=== PATIENT | male | born 1945 | race Caucasian/White ===

== ENCOUNTER 2018-12-22 12:00 | Inpatient (IN) | payer MEDICARE, OTHER ==
[~2018-12-22] VITALS: Ht 180.3 cm; Wt 131.8 kg
--- NOTE | 2018-12-23 14:29 | HPEPDOC ---
Color Weigher Note DATE OF ADMISSION: Dec 23, 2018 at 13:33 SOURCE OF ADMISSION INFORMATION: [facility] records and patient CHIEF COMPLAINT: right first digit amputation in setting of peripheral neuropathy HISTORY OF PRESENT ILLNESS: 73M pmh Afib on Coumadin, CAD s/p HI and stenting , CHF, CKD3, DM2, peripheral neuropathy, HTN, gout, anemia who presented to [facility] on 11/22/18 with right leg pain and found to have gangrene of his right great toe that he said began in September 2018.He was evaluated by vascular surgery and underwent a left femoral puncture under ultrasound guidance, aortogram with right leg runoff on 11/22/18. Following this procedure it was decided he needed a right femoral endarterectomy, right femoral popliteal bypass with a right first toe amputation which was performed 12/02/18 without initial complication. He was followed during his stay by renal for worsening creatinine levels, but dialysis was not deemed necessary. He developed purulence and drainage from his amputation site so his sutures were removed and wound cultures, followed by washout and debridement on 12/13/18 with removal of a portion of the 1st and 2nd metatarsal bones. . He was started on IV Vanco and Zosyn, but due to worsening renal function eventually was switched to Linezolid per ID recs for a MRSA wound culture and managed with a wound VAC. His bone culture was positive for osteomyelitis and positive for MRSA and enterococcus, so he was switched to IV Daptomycin for a total of 6 weeks through January 24, 2019. He also as noted to have intermittent bradycardia while on CoReg without significant symptoms and his Torsemide was ultimately decreased due to worsening creatinine function and he was evaluated by therapy, found to have deficits in gait and ADL below his prior level of function and deemed medically appropriate for discharge to ARU on 12/23/18. REVIEW OF SYSTEMS: The following is a completed review of systems and has been reviewed. Review of systems otherwise unremarkable. PAIN: Patient self reports no pain EYES: no recent vision changes EARS, NOSE, & THROAT: denies dysphagia, rhinorrhea CARDIOVASCULAR: denies chest pain or palpitations PULMONARY: Negative. +orthopnea GASTROINTESTINAL:denies diarrhea/constipation GENITOURINARY: denies incontinence or dysuria MUSCULOSKELETAL: bilat LE weakness, right hip fracture NEUROLOGICAL: peripheral neuropathy HEMATOLOGICAL: +anemia SKIN: right foot ulcer and venous stasis changes in bilat calves PSYCHIATRIC: +depressed All other review of systems found to be negative. PAST MEDICAL HISTORY: as per HPI PAST SURGICAL HISTORY: Cataract extraction, cholecystectomy, right hip fracture ALLERGIES: Please see below. MEDICATIONS: Please see below. FAMILY HISTORY: Cancer, cardiac, and heart disease SOCIAL HISTORY: , former smoker, no ETOH, no illicit drugs DIET: 2gm sodium PHYSICAL EXAMINATION: VITAL SIGNS: Please see below. GENERAL: Pleasant and cooperative. No acute distress. HEENT: PERRL. Extraocular movements intact. Clear conjunctiva CARDIOVASCULAR: Irregular rate and rhythm. No murmurs, rubs, or gallops LUNGS: Clear to auscultation bilaterally. No wheezes. No rhonchi ABDOMEN: Soft, nontender, nondistended. Positive bowel sounds. Normal active bowel sounds NEUROLOGICAL: Alert and oriented times three. Cranial nerves II through XII grossly intact. Sensation absent in bilat feet and ankles in stock pattern EXTREMITIES: 5\5 strength bilateral upper extremities. 4\5 strength right hip flexion and knee extension 2/5 right ankle DF 4/5 strength in left lower extremity. SKIN: right medial foot wound with granulation tissue, macerated, not malodorous right medial calf incision with sutures c/d/i bilateral psoriatic patches scattered over LE IMAGING: Imaging documentation personally reviewed by record FUNCTIONAL STATUS: Premorbid: Independent with all activities of daily life as well as mobility On Admission: Mod assist for toileting, bathing, lower body dressing, Mod-Max assist for ambulation and stairs GOALS: Mod-I from a wheelchair level, Mod-I household distances with a RW for ambulation, Mod-I bathing, toileting, dressing, grooming, medical optimization, family training, home eval assess for DMEs. ASSESSMENT:73-year-old M with past medical history of DM, CKD CAD, peripheral neuropathy who presents status post right toe amputation with wound vac. PLAN: 1. Rehab: PT, OT. assess for DMEs -goal to strengthen core, LLE for optimal ambulation short distances 30-50 feet max with forefoot off-kiln loader (PWB for RLE) -strengthen upper extremities 2. Nueo: peripheral neuropathy- c/u glycemic control 3. ID: MRSA and enterococcus osteomyelitis, c/u Daptomycin IV for total of 6 weeks- will consuder ID consult -c/u wound vac change MWF 4. CArdio: pmh HTn and CHF- c/u BP meds and iuretics, medicine consulted to assist -Afib on eliquis 5. Endo: pmh DM- c/u insulin and adjust prn 6. Vascular: pmh PVD s/p multiple interventions- has f/u with vascular surgeon 01/16/19 for suture removal 7. Pain:c/u gabapentin 8. Psych: will start remeron for depression and insomnia 9. Skin: daily dressing changes to bilat calves, wound vac MWF 10. GI ppx: protonix 11. DVT ppx: on eliquis 12. Renal: recent MARLEN, will monitor, needs f/u with nephrology on discharge 12. Dispo TBD POST ADMISSION PHYSICIAN EVALUATION: Medical and functional status: Description of medical status, medical assessment: As above. Rehabilitation diagnosis and current and prior cold morbid medical conditions as above. Risk of complications and plans to mitigate them as above. Description of functional status current status is as above. Prior status as above. Status compared to preadmission: There are no clinically significant differences between the patient's current status and the information described on the preadmission screening document. Treatment plan anticipated: Treatment plan is as described above. Required disciplines including physical therapy, occupational therapy, others as noted above. Intensity of services: 3 hours a day, 6 days a week. Special considerations: There are no specific special or safety considerations that would likely preclude immediate implementation of an intensive rehabilitation program or subsequently influence the plan of care ATTESTATION: Considering all the information above, it is my best judgment that this patient requires intensive rehabilitation therapy as described above and an inpatient hospital environment due to the complexity of nursing, medical, and rehabilitation needs required by the patient. Furthermore, this patient can reasonably be expected to participate in an benefit from an inpatient rehabilitation stay with an interdisciplinary team approach to the delivery of rehabilitation care under the direction and supervision of rehabilitation physician PROGNOSIS: Excellent ESTIMATED LENGTH OF STAY:18-20 days. PROJECTED DISCHARGE DESTINATION: Home with family support and any durable medical equipment required to increase functional safety and mobility TIME SPENT COUNSELING AND COORDINATING INITIAL CARE: Greater than 70 minutes. Vital Signs Vital Signs Date Time Temp Pulse Resp B/P (MAP) Pulse Ox O2 Delivery O2 Flow Rate FiO2 12/23/18 16:30 98.9 56 18 192/80 (117) 99 Home Medications Scheduled Allopurinol (Allopurinol) 100 Mg Tablet, 100 MG PO DAILY, (Reported) Apixaban (Eliquis) 5 Mg Tablet, 5 MG PO BID, (Reported) Carvedilol (Carvedilol) 25 Mg Tablet, 25 MG PO BID, (Reported) Cholecalciferol (Vitamin D3) (Vitamin D3) 1,000 Unit Tablet, 1,000 UNIT PO DAILY, (Reported) Clopidogrel Bisulfate (Clopidogrel) 75 Mg Tablet, 75 MG PO DAILY, (Reported) Docusate Sodium (Docusate Sodium) 100 Mg Capsule, 100 MG PO BID, (Reported) Gabapentin (Gabapentin) 100 Mg Capsule, 300 MG PO QHS, (Reported) Hydralazine HCl (Hydralazine HCl) 25 Mg Tablet, 25 MG PO BID, (Reported) (SBP>170) Insulin Aspart (Novolog) 100 Unit/1 Ml Cartridge, 0 SC ACHS, (Reported) Insulin Glargine,Hum.rec.anlog (Lantus Solostar) 100 Unit/1 Ml Insuln.pen, 16 UNITS SC DAILY, (Reported) L.acidoph/L.bulg/B.bif/S.therm (Bacid Caplet) 1 Each Tablet, 1 TAB PO DAILY, (Reported) Multivitamin (Multivitamins) 1 Each Tablet, 1 TAB PO DAILY, (Reported) Potassium Chloride (Potassium Chloride) 10 Meq Tablet.er, 20 MEQ PO TID, (Reported) VERIFIED DOSE WITH [facility] Tamsulosin HCl (Flomax) 0.4 Mg Capsule, 0.4 MG PO QHS, (Reported) Torsemide (Torsemide) 20 Mg Tablet, 20 MG PO BID, (Reported) Scheduled PRN Acetaminophen (Tylenol) 325 Mg Tablet, 650 MG PO Q4H PRN for PAIN, (Reported) Albuterol Sulfate (Proair Hfa) 8.5 Gm Hfa.aer.ad, 2 PUFF INH Q4H PRN for SHORTNESS OF BREATH, (Reported) Calcium Carbonate (Calcium) 500 Mg Tablet, 500 MG PO TID PRN for HEARTBURN, (Reported) Polyethylene Glycol 3350 (Miralax) 119 Gm Powder, 17 GM PO DAILY PRN for CONSTIPATION, (Reported) Allergies Coded Allergies: amlodipine (Verified Allergy, Unknown, 12/23/18) atorvastatin (Verified Allergy, Unknown, HIVES, 12/23/18) rosuvastatin (Verified Allergy, Unknown, HIVES, 12/23/18) simvastatin (Verified Allergy, Unknown, HIVES, 12/23/18) spironolactone (Verified Allergy, Unknown, SWELLING, 12/23/18) A-FIB/CHADSVASC A-FIB History Current/History of A-Fib/PAF?: Yes Current PO Anticoag Therapy: Yes ROSSANA SAENZ MD Dec 23, 2018 14:29
[2018-12-23] MEDS ORDERED: MOM 30ML SUSPENSION UDC PO PRN (14:30)
[2018-12-23] MEDS ORDERED: GLUCAGON FOR INJ 1 MG VIAL (J1610) SC PRN (14:30)
[2018-12-23] MEDS ORDERED: DEXTROSE 50% 50 ML SYRINGE IV PRN (14:30)
[2018-12-23] MEDS ORDERED: CALCIUM CARBONATE 500 MG CHEW U/D PO PRN (14:30)
[2018-12-23] MEDS ORDERED: BISACODYL 5 MG TAB PO PRN (14:30)
[2018-12-23] MEDS ORDERED: GLUCOSE 4 GM CHEW TABLET PO PRN (14:30)
[2018-12-23] MEDS ORDERED: ALBUTEROL 90 MCG/ACT 8GM HFA INHALER INH PRN (14:30)
[2018-12-23] MEDS ORDERED: MAALOX 30 ML SUSP *UDC PO PRN (14:30)
[2018-12-23] MEDS ORDERED: OYST1TAB PO (15:46)
[2018-12-23] MEDS ORDERED: ELIQ5TAB PO (15:46)
[2018-12-23] MEDS ORDERED: DOCU100C17 PO (15:46)
[2018-12-23] MEDS ORDERED: GABA-1171 PO (15:46)
[2018-12-23] MEDS ORDERED: MIRA3350 PO (15:46)
[2018-12-23] MEDS ORDERED: NOVOINJ SC (15:46)
[2018-12-23] MEDS ORDERED: CARV25TA PO (15:46)
[2018-12-23] MEDS ORDERED: FLOM0.4C39 PO (15:46)
[2018-12-23] MEDS ORDERED: CLOP75TA2 PO (15:46)
[2018-12-23] MEDS ORDERED: TORS20TA2 PO (15:46)
[2018-12-23] MEDS ORDERED: BACITAB PO (15:46)
[2018-12-23] MEDS ORDERED: LANTINJ4 SC (15:46)
[2018-12-23] MEDS ORDERED: HYDR25TA PO (15:46)
[2018-12-23] MEDS ORDERED: ALLO10TA PO (15:46)
[2018-12-23] MEDS ORDERED: MULT-40 PO (15:46)
[2018-12-23] MEDS ORDERED: ACET-907 PO (15:46)
[2018-12-23] MEDS ORDERED: VITA-144 PO (15:52)
[2018-12-23] MEDS ORDERED: PROAAER10 INH (15:52)
[2018-12-23] MEDS ORDERED: POTA10TA14 PO (15:52)
[2018-12-23 16:30] VITALS: BP 192/80
[2018-12-23] MEDS: HumaLOG INSULIN (NovoLOG) PER UNIT SC SCH ×2 (17:58→21:00)
[2018-12-23] MEDS: TORSEMIDE 20 MG TAB PO SCH (17:59)
[2018-12-23] MEDS: ACETAMINOPHEN 500 MG TAB PO SCH ×2 (17:59→20:48)
[2018-12-23] MEDS: CARVedilol 12.5 MG TAB PO SCH (18:00)
[2018-12-23] MEDS ORDERED: **hydrALAZINE** 50 MG TAB PO SCH (18:15)
--- NOTE | 2018-12-23 18:26 | CR.PDOC ---
General Date of Consultation: Dec 23, 2018 Consultation REASON FOR CONSULTATION/CHIEF COMPLAINT: routine medical consult HISTORY OF PRESENT ILLNESS: Pt is 73 y/o M who was discharged from [facility] in [place] to [facility] today. Pt was seen upon arrival to the unit. Pt was in [facility] 30 days with complicated hospital stay due to MRSA infection of Rt foot wound. He underwent debridement of gangrenous foot ulcer and eventually was dc on wound vac and Daptomycin to complete for 6 weeks until January 24. He initially received Vancomycin subsequently developed MARLEN switched to Linezolid. Upon my encounter pt is AAOx3. Denies any acute distress. Pt and just arrived from [place]. Initial SBP at 200s. As per documentations pt is on Coreg 25 BID, Losartan 50 daily and Hydralazine 50 BID. Pt reports that has not received his BP meds since AM. Denies any CP or dyspnea. Denies any pain at the site of his wound. It was communicated with RN to administer pt BP regimen. Pt denies any dizziness, lightheadedness or palpitations. Denies any change in vision. ALLERGIES: Please see below. HOME MEDICATIONS: Please see below. PAST MEDICAL HISTORY: 1. Rt foot wet gangrene s/p debridement 2. PAD s/p angioplasty and bypass 3. CAD s/p CABG 4. Afib on Eliquis 5. CHF 6. CKD stage 3 7. T2DM 8. HTN PAST SURGICAL HISTORY: 1. CABG 2. Cataract 3. Cholecystectomy FAMILY HISTORY: Father: cardiac disease, HTN Mother: Kidney disease Siblings: HTN SOCIAL HISTORY: Pt and live one hour from [facility] 25 years ago, No ETOH , No drugs REVIEW OF SYSTEMS: 10 points negative except in HPI PHYSICAL EXAMINATION: VITAL SIGNS: Please see below. GENERAL APPEARANCE: AAOx3 no acute distress HEENT: DEISY EOMI no icterus atraumatic no JVD no thyromegaly RESPIRATORY: good air entry bilat , clear to auscultation, no wheezing, no rales CARDIOVASCULAR: S1 S2 no murmurs ABDOMEN: soft NT ND EXTREMITIES: no edema no cyanosis no calf tenderness, wound vac in place NEUROLOGICAL: motor and sensory intact PSYCHIATRIC: mood and affect appropriate LABORATORY DATA: Please see below. Vital Signs Date Time Temp Pulse Resp B/P (MAP) Pulse Ox O2 Delivery O2 Flow Rate FiO2 12/23/18 18:00 59 206/86 Laboratory Tests 12/23/18 17:14: Bedside Glucose (Misc Panel) 125H Current Medications Medications (Trade) Dose Ordered Sig/Vani Route PRN Reason Start Time Stop Time Status Last Admin Dose Admin Acetaminophen (Tylenol Tab) 1,000 mg TID PO 12/23/18 16:00 12/23/18 17:59 1,000 MG Carvedilol (COReg) 25 mg BID PO 12/23/18 18:00 12/23/18 18:00 25 MG Insulin Human Lispro (HumaLOG INSULIN) SEE PROTOCOL TABLE AC SC 12/23/18 17:30 12/23/18 17:58 2 UNITS Torsemide (Demadex) 20 mg BID@, PO 12/23/18 17:00 12/23/18 17:59 20 MG ASSESSMENT/PLAN: 1- Hypertensive Urgency Pt has Hx of HTN managed on three medications, was en route to be transferred to [facility] and did not receive his meds Cont Home regimen Coreg 25 BID Cozar 50 daily Hydralazine 25 BID Will administer home dose and monitor closely 2-Osteomyelitis of Rt toe s/p debridement Cont Daptomycin for total of 6 weeks until January 24 Weekly CK levels Wound vac in place follow instructions for wound care from discharge summary 3-CAD s/p CABG Currently stable denies any angina/palpitations Cont Coreg ASA Statin 4-Atrial fibrillation Rate controlled Cont Anticoagulation Eliquis 5-CKD stage 3 Currently euvolemic clinically monitor for signs of volume overload no intervention at this point DVT prophylaxis On Eliquis Thank you for the consult. Vital Signs/I&O Vital Signs Date Time Temp Pulse Resp B/P (MAP) Pulse Ox O2 Delivery O2 Flow Rate FiO2 12/23/18 18:00 59 206/86 Laboratory Data Labs 24H Laboratory Tests 2 12/23/18 17:14: Bedside Glucose (Misc Panel) 125H Allergies Coded Allergies: amlodipine (Verified Allergy, Unknown, 12/23/18) atorvastatin (Verified Allergy, Unknown, HIVES, 12/23/18) rosuvastatin (Verified Allergy, Unknown, HIVES, 12/23/18) simvastatin (Verified Allergy, Unknown, HIVES, 12/23/18) spironolactone (Verified Allergy, Unknown, SWELLING, 12/23/18) Home Medications Scheduled Allopurinol (Allopurinol) 100 Mg Tablet, 100 MG PO DAILY, (Reported) Apixaban (Eliquis) 5 Mg Tablet, 5 MG PO BID, (Reported) Carvedilol (Carvedilol) 25 Mg Tablet, 25 MG PO BID, (Reported) Cholecalciferol (Vitamin D3) (Vitamin D3) 1,000 Unit Tablet, 1,000 UNIT PO DAILY, (Reported) Clopidogrel Bisulfate (Clopidogrel) 75 Mg Tablet, 75 MG PO DAILY, (Reported) Docusate Sodium (Docusate Sodium) 100 Mg Capsule, 100 MG PO BID, (Reported) Gabapentin (Gabapentin) 100 Mg Capsule, 300 MG PO QHS, (Reported) Hydralazine HCl (Hydralazine HCl) 25 Mg Tablet, 25 MG PO BID, (Reported) (SBP>170) Insulin Aspart (Novolog) 100 Unit/1 Ml Cartridge, 0 SC ACHS, (Reported) Insulin Glargine,Hum.rec.anlog (Lantus Solostar) 100 Unit/1 Ml Insuln.pen, 16 UNITS SC DAILY, (Reported) L.acidoph/L.bulg/B.bif/S.therm (Bacid Caplet) 1 Each Tablet, 1 TAB PO DAILY, (Reported) Multivitamin (Multivitamins) 1 Each Tablet, 1 TAB PO DAILY, (Reported) Potassium Chloride (Potassium Chloride) 10 Meq Tablet.er, 20 MEQ PO TID, (Reported) VERIFIED DOSE WITH [facility] Tamsulosin HCl (Flomax) 0.4 Mg Capsule, 0.4 MG PO QHS, (Reported) Torsemide (Torsemide) 20 Mg Tablet, 20 MG PO BID, (Reported) Scheduled PRN Acetaminophen (Tylenol) 325 Mg Tablet, 650 MG PO Q4H PRN for PAIN, (Reported) Albuterol Sulfate (Proair Hfa) 8.5 Gm Hfa.aer.ad, 2 PUFF INH Q4H PRN for SHORTNESS OF BREATH, (Reported) Calcium Carbonate (Calcium) 500 Mg Tablet, 500 MG PO TID PRN for HEARTBURN, (Reported) Polyethylene Glycol 3350 (Miralax) 119 Gm Powder, 17 GM PO DAILY PRN for CONSTIPATION, (Reported) JOEY NORIEGA MD Dec 23, 2018 18:26
[2018-12-23] MEDS ORDERED: NS IV SCH (18:30)
[2018-12-23] MEDS ORDERED: DAPTOMYCIN IV SCH (18:30)
[2018-12-23] MEDS: **hydrALAZINE HCL** 25 MG TAB PO SCH (18:53)
[2018-12-23 20:00] VITALS: BP 170/80
[2018-12-23] MEDS: GABAPENTIN 300 MG CAP PO SCH (20:44)
[2018-12-23] MEDS: APIXABAN 5 MG TAB (ELIQUIS) PO SCH (20:44)
[2018-12-23] MEDS: DOCUSATE SODIUM 100 MG CAP PO SCH (20:44)
[2018-12-23] MEDS: LACTOBACILLUS ACIDOPHILUS CAP (BACID) PO SCH (20:45)
[2018-12-23] MEDS: TAMSULOSIN 0.4 MG CAP PO SCH (20:46)
[2018-12-23] MEDS: MIRTAZAPINE 15 MG TAB PO SCH (20:46)
[2018-12-23] MEDS: SENNA 8.6 MG TAB (SENOKOT) PO SCH (20:48)
[2018-12-23] MEDS ORDERED: LOSARTAN 50 MG TAB PO ONE (21:00)
[2018-12-24] MEDS: SODIUM CHLORIDE 0.9% INJ 10 ML SYR IV SCH ×3 (05:18→22:34)
[2018-12-24 05:36] VITALS: BP 160/75
[2018-12-24 07:02] LABS: BASO # 0.1 10^3/uL (0.0-0.2); EOS # 0.3 10^3/uL (0.0-0.50); EOS % 4.2 % (0.0-3.0); HEMATOCRIT 33.4 % (42.0-52.0); HEMOGLOBIN 9.6 g/dl (13.5-17.5); LYMPH # 1.3 10^3/uL (1.5-4.5); LYMPH % 16.1 % (24.0-44.0); MEAN CORPUSCULAR HEMOGLOBIN 29.4 pg (27.0-33.0); MEAN CORPUSCULAR HGB CONC 28.7 g/dl (32.0-36.5); MEAN CORPUSCULAR VOLUME 102.1 fl (80.0-96.0); MONO # 0.8 10^3/uL (0.0-0.8); MONO % 9.7 % (0.0-5.0); NEUTROPHILS # 5.5 10^3/uL (1.8-7.7); NEUTROPHILS % 67.6 % (36.0-66.0); PLATELET COUNT, AUTOMATED 188 10^3/uL (150-450); RED BLOOD COUNT 3.27 10^6/uL (4.30-6.10); WHITE BLOOD COUNT 8.1 10^3/uL (4.0-10.0)
[2018-12-24 07:27] LABS: ALBUMIN 2.5 GM/DL (3.2-5.2); BILIRUBIN,TOTAL 0.6 MG/DL (0.2-1.0); CALCIUM LEVEL 8.7 MG/DL (8.8-10.2); CREATININE FOR GFR 1.84 MG/DL (0.70-1.30); GLOMERULAR FILTRATION RATE 38.7 (>42); POTASSIUM SERUM 3.9 MEQ/L (3.5-5.1); TOTAL PROTEIN 6.5 GM/DL (6.4-8.2)
[2018-12-24] MEDS: HumaLOG INSULIN (NovoLOG) PER UNIT SC SCH ×4 (07:30→21:00)
[2018-12-24] MEDS: DOCUSATE SODIUM 100 MG CAP PO SCH ×2 (08:55→22:32)
[2018-12-24] MEDS: ACETAMINOPHEN 500 MG TAB PO SCH ×3 (08:55→22:32)
[2018-12-24] MEDS: TORSEMIDE 20 MG TAB PO SCH ×2 (08:56→16:26)
[2018-12-24] MEDS: LACTOBACILLUS ACIDOPHILUS CAP (BACID) PO SCH ×3 (08:56→22:33)
[2018-12-24] MEDS: ALLOPURINOL 100 MG TAB PO SCH (08:56)
[2018-12-24] MEDS: APIXABAN 5 MG TAB (ELIQUIS) PO SCH ×2 (08:56→22:33)
[2018-12-24] MEDS: LEVEMIR (INSULIN DETEMIR) 1 UNITS/0.01ML SC SCH (08:57)
[2018-12-24] MEDS: CLOPIDOGREL 75 MG TAB PO SCH (08:57)
[2018-12-24] MEDS: EUCERIN 120GM CREAM TOP SCH (09:00)
[2018-12-24] MEDS: LOSARTAN 50 MG TAB PO SCH (09:01)
[2018-12-24] MEDS: CARVedilol 12.5 MG TAB PO SCH ×2 (09:02→22:32)
[2018-12-24] MEDS: **hydrALAZINE HCL** 25 MG TAB PO SCH ×3 (09:02→22:33)
[2018-12-24 11:23] VITALS: BP 136/54
[2018-12-24] MEDS: MULTIVITAMINS/MINERALS THERAP 1 TAB PO SCH (12:57)
[2018-12-24] MEDS: VITAMIN D 1,000 INTERNATIONAL UNITS TABLET PO SCH (16:26)
[2018-12-24] MEDS: DAPTOmycin 1,000 MG in NS 50 ML IV SCH (17:22)
[2018-12-24] MEDS: SODIUM CHLORIDE 0.9% INJ 10 ML SYR IV PRN (17:23)
[2018-12-24 20:00] VITALS: BP 156/78
[2018-12-24] MEDS: TAMSULOSIN 0.4 MG CAP PO SCH (22:31)
[2018-12-24] MEDS: SENNA 8.6 MG TAB (SENOKOT) PO SCH (22:31)
[2018-12-24] MEDS: GABAPENTIN 300 MG CAP PO SCH (22:32)
[2018-12-24] MEDS: MIRTAZAPINE 15 MG TAB PO SCH (22:32)
[2018-12-25] MEDS: SODIUM CHLORIDE 0.9% INJ 10 ML SYR IV SCH ×3 (05:47→21:17)
[2018-12-25 06:00] VITALS: BP 154/74
[2018-12-25] MEDS: EUCERIN 120GM CREAM TOP SCH (08:22)
[2018-12-25] MEDS: LACTOBACILLUS ACIDOPHILUS CAP (BACID) PO SCH ×3 (08:23→21:16)
[2018-12-25] MEDS: DOCUSATE SODIUM 100 MG CAP PO SCH ×2 (08:23→21:15)
[2018-12-25] MEDS: CLOPIDOGREL 75 MG TAB PO SCH (08:23)
[2018-12-25] MEDS: HumaLOG INSULIN (NovoLOG) PER UNIT SC SCH ×4 (08:23→19:53)
[2018-12-25] MEDS: VITAMIN D 1,000 INTERNATIONAL UNITS TABLET PO SCH (08:23)
[2018-12-25] MEDS: TORSEMIDE 20 MG TAB PO SCH ×2 (08:23→17:37)
[2018-12-25] MEDS: LEVEMIR (INSULIN DETEMIR) 1 UNITS/0.01ML SC SCH (08:23)
[2018-12-25] MEDS: ALLOPURINOL 100 MG TAB PO SCH (08:23)
[2018-12-25] MEDS: CARVedilol 12.5 MG TAB PO SCH ×2 (08:24→21:00)
[2018-12-25] MEDS: LOSARTAN 50 MG TAB PO SCH (08:24)
[2018-12-25] MEDS: APIXABAN 5 MG TAB (ELIQUIS) PO SCH ×2 (08:24→21:15)
[2018-12-25] MEDS: **hydrALAZINE HCL** 25 MG TAB PO SCH ×3 (08:25→21:15)
[2018-12-25] MEDS: ACETAMINOPHEN 500 MG TAB PO SCH ×3 (08:25→21:17)
[2018-12-25] MEDS: MULTIVITAMINS/MINERALS THERAP 1 TAB PO SCH (13:36)
[2018-12-25 14:00] VITALS: BP 182/64
[2018-12-25] MEDS: DAPTOmycin 1,000 MG in NS 50 ML IV SCH (17:37)
[2018-12-25] MEDS: SODIUM CHLORIDE 0.9% INJ 10 ML SYR IV PRN (17:38)
[2018-12-25 20:00] VITALS: BP 162/78
[2018-12-25] MEDS: SENNA 8.6 MG TAB (SENOKOT) PO SCH (21:14)
[2018-12-25] MEDS: TAMSULOSIN 0.4 MG CAP PO SCH (21:14)
[2018-12-25] MEDS: GABAPENTIN 300 MG CAP PO SCH (21:15)
[2018-12-25] MEDS: MIRTAZAPINE 15 MG TAB PO SCH (21:17)
[2018-12-26] MEDS: SODIUM CHLORIDE 0.9% INJ 10 ML SYR IV SCH ×3 (05:31→22:28)
[2018-12-26] MEDS: TORSEMIDE 20 MG TAB PO SCH (05:57)
[2018-12-26] MEDS: **hydrALAZINE HCL** 25 MG TAB PO SCH ×3 (05:58→22:26)
[2018-12-26 06:00] VITALS: BP 182/90
[2018-12-26 06:57] VITALS: BP 174/86
[2018-12-26] MEDS: HumaLOG INSULIN (NovoLOG) PER UNIT SC SCH ×4 (07:30→21:00)
--- NOTE | 2018-12-26 07:30 | IPNPDOC ---
Text Note Date of Service The patient was seen on 12/26/18. NOTE Pt denies any new complaints. Noted to have high systolic BP. Denies any chest pain, palpitations, headache or visual changes. GENERAL APPEARANCE: AAOx3 no acute distress HEENT: DEISY EOMI no icterus atraumatic no JVD no thyromegaly RESPIRATORY: good air entry bilat , clear to auscultation, no wheezing, no rales CARDIOVASCULAR: S1 S2 no murmurs ABDOMEN: soft NT ND EXTREMITIES: no edema no cyanosis no calf tenderness, wound vac in place NEUROLOGICAL: motor and sensory intact PSYCHIATRIC: mood and affect appropriate Vital Signs Date Time Temp Pulse Resp B/P (MAP) Pulse Ox O2 Delivery O2 Flow Rate FiO2 12/26/18 06:57 174/86 (115) 12/26/18 06:00 97.2 52 20 182/90 (120) 97 12/26/18 05:58 182/90 12/25/18 21:15 162/78 12/25/18 21:00 55 12/25/18 20:00 99.4 55 20 162/78 (106) 96 12/25/18 17:36 186/72 12/25/18 14:00 98.0 47 18 182/64 (103) 98 12/25/18 08:24 154/74 12/25/18 08:24 57 Intake & Output 12/26/18 06:00 Intake Total 1410 ml Output Total 1470 ml Balance -60 ml Laboratory Tests 12/25/18 16:40: Bedside Glucose (Misc Panel) 106 12/25/18 19:46: Bedside Glucose (Misc Panel) 163H 12/26/18 05:40: Bedside Glucose (Misc Panel) 97 Current Medications Medications (Trade) Dose Ordered Sig/Vani Route PRN Reason Start Time Stop Time Status Last Admin Dose Admin Acetaminophen (Tylenol Tab) 1,000 mg TID PO 12/23/18 16:00 12/25/18 21:17 1,000 MG Allopurinol (Zyloprim) 100 mg DAILY PO 12/24/18 09:00 12/25/18 08:23 100 MG Apixaban (Eliquis) 5 mg BID PO 12/23/18 21:00 12/25/18 21:15 5 MG Carvedilol (COReg) 25 mg BID PO 12/23/18 18:00 6/29/19 22:32 25 MG Clopidogrel Bisulfate (PLAVix) 75 mg DAILY PO 12/24/18 09:00 12/25/18 08:23 75 MG Daptomycin 1000 mg/Sodium Chloride 70 ml @ 120 mls/hr Q24H IV 12/24/18 18:00 12/25/18 17:37 120 MLS/HR Docusate Sodium (Colace) 100 mg BID PO 12/23/18 21:00 12/25/18 21:15 100 MG Gabapentin (Neurontin) 300 mg QHS PO 12/23/18 21:00 12/25/18 21:15 300 MG Heparin Sodium (Heparin Lock Flush 10units/ml) 10 units ASDIRECTED PRN IV SEE LABEL COMMENTS 12/24/18 00:30 12/25/18 17:38 10 UNITS Hydralazine HCl (Apresoline) 25 mg TID PO 12/24/18 16:00 12/26/18 05:58 25 MG Insulin Detemir (Levemir Insulin) 10 units DAILY SC 12/24/18 09:00 12/25/18 08:23 10 UNITS Insulin Human Lispro (HumaLOG INSULIN) SEE PROTOCOL TABLE AC SC 12/23/18 17:30 12/25/18 17:37 2 UNITS Lactobacillus Acidophilus (Bacid) 1 ea TID PO 12/23/18 21:00 12/25/18 21:16 1 EA Losartan Potassium (Cozaar) 50 mg QAM PO 12/24/18 09:00 12/25/18 08:24 50 MG Mineral Oil/White Petrolatum (Eucerin) apply to lower legs then w... DAILY TOP 12/24/18 09:00 12/25/18 08:22 1 DOSE Mirtazapine (Remeron) 15 mg QHS PO 12/23/18 21:00 12/25/18 21:17 15 MG Multivitamins (Theragram-M) 1 tab DAILY@1200 PO 12/24/18 12:00 12/25/18 13:36 1 TAB Senna (Senokot) 1 tab QHS PO 12/23/18 21:00 12/25/18 21:14 1 TAB Sodium Chloride (Saline Lock Flush) 10 ml ASDIRECTED PRN IV SEE LABEL COMMENTS 12/24/18 00:30 12/25/18 17:38 10 ML Tamsulosin HCl (Flomax) 0.4 mg QHS PO 12/23/18 21:00 12/25/18 21:14 0.4 MG Torsemide (Demadex) 20 mg BID@09,17 PO 12/23/18 17:00 12/26/18 05:57 20 MG Vitamin D (Vitamin D) 2,000 units DAILY PO 12/24/18 09:00 12/25/18 08:23 2,000 UNITS LABORATORY DATA: Please see below. ASSESSMENT/PLAN: 1- Hypertensive Urgency Pt has Hx of HTN managed on three medications. Cont Home regimen Coreg 25 BID Cozar 50 daily Hydralazine 25 BID Increase hydralazine to 25 TID Hold BP meds for SBP <100, DBP 60 2-Osteomyelitis of Rt toe s/p debridement Cont Daptomycin for total of 6 weeks until January 24 Weekly CK levels Wound vac in place follow instructions for wound care from discharge summary 3-CAD s/p CABG Currently stable denies any angina/palpitations Cont Coreg ASA Statin 4-Atrial fibrillation Rate controlled Cont Anticoagulation Eliquis 5-CKD stage 3 Currently euvolemic clinically monitor for signs of volume overload no intervention at this point DVT prophylaxis On Eliquis VS,Fishbone, I+O VS, Fishbone, I+O Vital Signs Date Time Temp Pulse Resp B/P (MAP) Pulse Ox O2 Delivery O2 Flow Rate FiO2 12/26/18 06:57 174/86 (115) 12/26/18 06:00 97.2 52 20 97 I&O- Last 24 Hours up to 6 AM 12/26/18 06:00 Intake Total 1410 ml Output Total 1470 ml Balance -60 ml JOEY NORIEGA MD Dec 26, 2018 07:30
[2018-12-26] MEDS: CLOPIDOGREL 75 MG TAB PO SCH (09:40)
[2018-12-26] MEDS: LACTOBACILLUS ACIDOPHILUS CAP (BACID) PO SCH ×3 (09:40→22:27)
[2018-12-26] MEDS: VITAMIN D 1,000 INTERNATIONAL UNITS TABLET PO SCH (09:40)
[2018-12-26] MEDS: DOCUSATE SODIUM 100 MG CAP PO SCH ×2 (09:40→22:27)
[2018-12-26] MEDS: ALLOPURINOL 100 MG TAB PO SCH (09:40)
[2018-12-26] MEDS: EUCERIN 120GM CREAM TOP SCH (09:40)
[2018-12-26] MEDS: LOSARTAN 50 MG TAB PO SCH (09:40)
[2018-12-26] MEDS: ACETAMINOPHEN 500 MG TAB PO SCH ×3 (09:41→21:00)
[2018-12-26] MEDS: CARVedilol 12.5 MG TAB PO SCH ×2 (09:41→21:00)
[2018-12-26] MEDS: APIXABAN 5 MG TAB (ELIQUIS) PO SCH ×2 (09:41→22:27)
[2018-12-26] MEDS: LEVEMIR (INSULIN DETEMIR) 1 UNITS/0.01ML SC SCH (09:48)
--- NOTE | 2018-12-26 10:43 | IPNPDOC ---
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 He is not interested in increasing his dose. Wound vac changed today. REVIEW OF SYSTEMS: The following is a completed review of systems and has been reviewed. Review of systems otherwise unremarkable. PAIN: Patient self reports no pain EYES: no recent vision changes EARS, NOSE, & THROAT: denies dysphagia, rhinorrhea CARDIOVASCULAR: denies chest pain or palpitations PULMONARY: Negative. +orthopnea GASTROINTESTINAL:denies diarrhea/constipation GENITOURINARY: denies incontinence or dysuria MUSCULOSKELETAL: bilat LE weakness, right hip fracture NEUROLOGICAL: peripheral neuropathy HEMATOLOGICAL: +anemia SKIN: right foot ulcer and venous stasis changes in bilat calves PSYCHIATRIC: +depressed All other review of systems found to be negative. PHYSICAL EXAMINATION: VITAL SIGNS: Please see below. GENERAL: Pleasant and cooperative. No acute distress. HEENT: PERRL. Extraocular movements intact. Clear conjunctiva CARDIOVASCULAR: Irregular rate and rhythm. No murmurs, rubs, or gallops LUNGS: Clear to auscultation bilaterally. No wheezes. No rhonchi ABDOMEN: Soft, nontender, nondistended. Positive bowel sounds. Normal active bowel sounds NEUROLOGICAL: Alert and oriented times three. Cranial nerves II through XII grossly intact. Sensation absent in bilat feet and ankles in stock pattern EXTREMITIES: 5\5 strength bilateral upper extremities. 4\5 strength right hip flexion and knee extension 2/5 right ankle DF 4/5 strength in left lower extremity. SKIN: right medial foot wound with granulation tissue, macerated, not malodorous right medial calf incision with sutures c/d/i bilateral psoriatic patches scattered over LE ASSESSMENT:73-year-old M with past medical history of DM, CKD CAD, peripheral neuropathy who presents status post right toe amputation with wound vac. PLAN: 1. Rehab: PT, OT. 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 Neuro: peripheral neuropathy- c/u glycemic control 3. ID: MRSA and enterococcus osteomyelitis, c/u Daptomycin IV for total of 6 weeks- will consider ID consult -c/u wound vac change MWF -monitor CRP/ESR 4. 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 Endo: pmh DM- c/u insulin and adjust prn 6. Vascular: pmh PVD s/p multiple interventions- has f/u with vascular surgeon 01/16/19 for suture removal 7. Pain:c/u gabapentin 8. Psych: will start remeron for depression and insomnia 9. Skin: BID dressing changes to bilat calves, wound vac MWF 10. GI ppx: protonix 11. DVT ppx: on eliquis 12. 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 Dispo TBD Allergies Coded Allergies: amlodipine (Verified Allergy, Unknown, 12/23/18) atorvastatin (Verified Allergy, Unknown, HIVES, 12/23/18) rosuvastatin (Verified Allergy, Unknown, HIVES, 12/23/18) simvastatin (Verified Allergy, Unknown, HIVES, 12/23/18) spironolactone (Verified Allergy, Unknown, SWELLING, 12/23/18) Vital Signs Vital Signs Date Time Temp Pulse Resp B/P (MAP) Pulse Ox O2 Delivery O2 Flow Rate FiO2 12/26/18 09:41 52 174/86 12/26/18 06:00 97.2 20 97 Laboratory Data Labs 24H Laboratory Tests 2 12/25/18 16:40: Bedside Glucose (Misc Panel) 106 12/25/18 19:46: Bedside Glucose (Misc Panel) 163H 12/26/18 05:40: Bedside Glucose (Misc Panel) 97 Current Medications Current Medications Current Medications Acetaminophen (Tylenol Tab) 1,000 mg TID PO Last administered on 12/26/18at 09:41; Start 12/23/18 at 16:00 Al Hydrox/Mg Hydrox/Simethicone (Mylanta) 30 ml Q4HP PRN PO DYSPEPSIA; Start 12/23/18 at 14:30 Albuterol Sulfate (Proventil, Ventolin Hfa) 2 puff Q4HP PRN INH SHORTNESS OF BREATH; Start 12/23/18 at 14:30 Allopurinol (Zyloprim) 100 mg DAILY PO Last administered on 12/26/18 09:40; Start 12/24/18 at 09:00 Apixaban (Eliquis) 5 mg BID PO Last administered on 12/26/18 09:41; Start 12/23/18 at 21:00 Bisacodyl (Dulcolax Tab) 5 mg DAILYPRN PRN PO CONSTIPATION; Start 12/23/18 at 14:30 Calcium Carbonate (Tums) 500 mg TID PRN PO INDIGESTION; Start 12/23/18 at 14:30 Carvedilol (COReg) 25 mg BID PO Last administered on 12/26/18 09:41; Start 12/23/18 at 18:00 Clopidogrel Bisulfate (PLAVix) 75 mg DAILY PO Last administered on 12/26/18 09:40; Start 12/24/18 at 09:00 Daptomycin 1000 mg/Sodium Chloride 70 ml @ 120 mls/hr Q24H IV Last administered on 12/25/18 17:37; Start 12/24/18 at 18:00 Daptomycin 1050 mg/Sodium Chloride 71 ml @ 71 mls/hr Q24H IV Last administered on 12/23/18at 20:42; Start 12/23/18 at 18:30; Stop 12/24/18 at 11:41; Status DC Dextrose (Dextrose 50%) 25 ml ASDIRECTED PRN IV SEE LABEL COMMENTS; Start 12/23/18 at 14:30 Docusate Sodium (Colace) 100 mg BID PO Last administered on 12/26/18 09:40; Start 12/23/18 at 21:00 Gabapentin (Neurontin) 300 mg QHS PO Last administered on 12/25/18 21:15; Start 12/23/18 at 21:00 Glucagon (Glucagon) 1 mg ASDIRECTED PRN SC SEE LABEL COMMENTS; Start 12/23/18 at 14:30 Glucose (Glucose) 16 GM ASDIRECTED PRN PO SEE LABEL COMMENTS; Start 12/23/18 at 14:30 Heparin Sodium (Heparin Lock Flush 10units/ml) 10 units ASDIRECTED PRN IV SEE LABEL COMMENTS Last administered on 12/25/18at 17:38; Start 12/24/18 at 00:30 Heparin Sodium (Heparin Lock Flush 10units/ml) 10 units HLF IV Last administered on 12/26/18at 05:31; Start 12/24/18 at 06:00 Home Med (Med Rec Complete!) ASDIRECTED XX ; Start 12/23/18 at 16:00; Stop 12/23/18 at 16:00; Status DC Hydralazine HCl (Apresoline) 25 mg BID PO Last administered on 12/24/18at 09:02; Start 12/23/18 at 18:41; Stop 12/24/18 at 11:43; Status DC Hydralazine HCl (Apresoline) 25 mg TID PO Last administered on 12/26/18at 05:58; Start 12/24/18 at 16:00 Hydralazine HCl (Apresoline) 50 mg BID PO ; Start 12/23/18 at 18:15; Stop 12/23/18 at 18:38; Status DC Insulin Detemir (Levemir Insulin) 10 units DAILY SC Last administered on 12/26/18at 09:48; Start 12/24/18 at 09:00 Insulin Human Lispro (HumaLOG INSULIN) SEE PROTOCOL TABLE AC SC Last admi nistered on 12/25/18at 17:37; Start 12/23/18 at 17:30 Insulin Human Lispro (HumaLOG INSULIN) SEE PROTOCOL TABLE QHS SC ; Start at 21:00 Lactobacillus Acidophilus (Bacid) 1 ea TID PO Last administered on 12/26/18at 09:40; Start 12/23/18 at 21:00 Losartan Potassium (Cozaar) 50 mg QAM PO Last administered on 12/26/18at 09:40; Start 12/24/18 at 09:00 Magnesium Hydroxide (Milk Of Magnesia) 30 ml DAILYPRN PRN PO CONSTIPATION; Start 12/23/18 at 14:30 Mineral Oil/White Petrolatum (Eucerin) apply to lower legs then w... DAILY TOP Last administered on 12/26/18at 09:40; Start 12/24/18 at 09:00 Mirtazapine (Remeron) 15 mg QHS PO Last administered on 12/25/18at 21:17; Start 12/23/18 at 21:00 Multivitamins (Theragram-M) 1 tab DAILY@1200 PO Last administered on 12/25/18 13:36; Start 12/24/18 at 12:00 Senna (Senokot) 1 tab QHS PO Last administered on 12/25/18 21:14; Start 12/23/18 at 21:00 Sodium Chloride (Saline Lock Flush) 10 ml ASDIRECTED PRN IV SEE LABEL COMMENTS Last administered on 12/25/18 17:38; Start 12/24/18 at 00:30 Sodium Chloride (Saline Lock Flush) 10 ml SLF IV Last administered on 12/26/18 05:31; Start 12/24/18 at 06:00 Tamsulosin HCl (Flomax) 0.4 mg QHS PO Last administered on 12/25/18 21:14; Start 12/23/18 at 21:00 Torsemide (Demadex) 20 mg BID@09,17 PO Last administered on 12/26/18 05:57; Start 12/23/18 at 17:00 Vitamin D (Vitamin D) 2,000 units DAILY PO Last administered on 12/26/18 09:40; Start 12/24/18 at 09:00 ROSSANA SAENZ MD Dec 26, 2018 10:43
[2018-12-26] MEDS ORDERED: LOSARTAN 50 MG TAB PO ONE (10:45)
[2018-12-26 11:48] LABS: BASO # 0.1 10^3/uL (0.0-0.2); BASO % 0.8 % (0.0-1.0); EOS # 0.3 10^3/uL (0.0-0.50); EOS % 3.9 % (0.0-3.0); HEMATOCRIT 31.8 % (42.0-52.0); HEMOGLOBIN 9.2 g/dl (13.5-17.5); LYMPH # 1.3 10^3/uL (1.5-4.5); LYMPH % 16.6 % (24.0-44.0); MEAN CORPUSCULAR HEMOGLOBIN 29.4 pg (27.0-33.0); MEAN CORPUSCULAR HGB CONC 28.9 g/dl (32.0-36.5); MEAN CORPUSCULAR VOLUME 101.6 fl (80.0-96.0); MONO # 0.7 10^3/uL (0.0-0.8); MONO % 9.5 % (0.0-5.0); NEUTROPHILS # 5.2 10^3/uL (1.8-7.7); PLATELET COUNT, AUTOMATED 197 10^3/uL (150-450); RED BLOOD COUNT 3.13 10^6/uL (4.30-6.10); WHITE BLOOD COUNT 7.7 10^3/uL (4.0-10.0)
[2018-12-26] MEDS: MULTIVITAMINS/MINERALS THERAP 1 TAB PO SCH (12:00)
[2018-12-26 12:14] LABS: C REACTIVE PROTEIN QUANTITATIV 1.66 MG/DL (0.00-0.30); CALCIUM LEVEL 8.8 MG/DL (8.8-10.2); CREATININE FOR GFR 2.04 MG/DL (0.70-1.30); ERYTHROCYTE SEDIMENTATION RATE 63 mm/hr (0-20); GLOMERULAR FILTRATION RATE 34.3 (>42); POTASSIUM SERUM 3.8 MEQ/L (3.5-5.1)
[2018-12-26 14:00] VITALS: BP 168/72
[2018-12-26] MEDS: DAPTOmycin 1,000 MG in NS 50 ML IV SCH (17:13)
[2018-12-26] MEDS: TORSEMIDE 10 MG TABLET PO SCH (17:14)
[2018-12-26] MEDS: SODIUM CHLORIDE 0.9% INJ 10 ML SYR IV PRN (17:18)
[2018-12-26 20:00] VITALS: BP 162/78
[2018-12-26] MEDS: TAMSULOSIN 0.4 MG CAP PO SCH (22:26)
[2018-12-26] MEDS: MIRTAZAPINE 15 MG TAB PO SCH (22:27)
[2018-12-26] MEDS: SENNA 8.6 MG TAB (SENOKOT) PO SCH (22:27)
[2018-12-26] MEDS: GABAPENTIN 300 MG CAP PO SCH (22:27)
[2018-12-27 05:58] VITALS: BP 140/82
[2018-12-27] MEDS ORDERED: ACETAMINOPHEN 500 MG TAB PO ONE (06:00)
[2018-12-27] MEDS: SODIUM CHLORIDE 0.9% INJ 10 ML SYR IV SCH ×3 (06:28→21:48)
[2018-12-27] MEDS: CARVedilol 12.5 MG TAB PO SCH (09:00)
[2018-12-27] MEDS: HumaLOG INSULIN (NovoLOG) PER UNIT SC SCH ×4 (09:20→21:00)
[2018-12-27] MEDS: LEVEMIR (INSULIN DETEMIR) 1 UNITS/0.01ML SC SCH (09:21)
[2018-12-27] MEDS: ALLOPURINOL 100 MG TAB PO SCH (09:21)
[2018-12-27] MEDS: LOSARTAN 50 MG TAB PO SCH (09:21)
[2018-12-27] MEDS: LACTOBACILLUS ACIDOPHILUS CAP (BACID) PO SCH ×3 (09:21→21:48)
[2018-12-27] MEDS: DOCUSATE SODIUM 100 MG CAP PO SCH ×2 (09:21→21:00)
[2018-12-27] MEDS: VITAMIN D 1,000 INTERNATIONAL UNITS TABLET PO SCH (09:22)
[2018-12-27] MEDS: CLOPIDOGREL 75 MG TAB PO SCH (09:22)
[2018-12-27] MEDS: **hydrALAZINE HCL** 25 MG TAB PO SCH ×3 (09:22→21:48)
[2018-12-27] MEDS: TORSEMIDE 10 MG TABLET PO SCH ×2 (09:22→17:52)
[2018-12-27] MEDS: EUCERIN 120GM CREAM TOP SCH (09:23)
[2018-12-27] MEDS: APIXABAN 5 MG TAB (ELIQUIS) PO SCH ×2 (09:23→21:48)
--- NOTE | 2018-12-27 11:08 | IPNPDOC ---
PM&R Progress Note DATE OF SERVICE: Dec 27, 2018 Plate Put In Worker Progress Note Subjective: Patient's concerned about a foam padding on his sacrum that had been placed at prior hospital but not removed since. Patient staes he feels well overall, but his mood is still depressed. He does not want to adjust the Remeron. REVIEW OF SYSTEMS: The following is a completed review of systems and has been reviewed. Review of systems otherwise unremarkable. PAIN: Patient self reports no pain EYES: no recent vision changes EARS, NOSE, & THROAT: denies dysphagia, rhinorrhea CARDIOVASCULAR: denies chest pain or palpitations PULMONARY: Negative. +orthopnea GASTROINTESTINAL:denies diarrhea/constipation GENITOURINARY: denies incontinence or dysuria MUSCULOSKELETAL: bilat LE weakness, right hip fracture NEUROLOGICAL: peripheral neuropathy HEMATOLOGICAL: +anemia SKIN: right foot ulcer and venous stasis changes in bilat calves PSYCHIATRIC: +depressed All other review of systems found to be negative. PHYSICAL EXAMINATION: VITAL SIGNS: Please see below. GENERAL: Pleasant and cooperative. No acute distress. HEENT: PERRL. Extraocular movements intact. Clear conjunctiva CARDIOVASCULAR: Irregular rate and rhythm. No murmurs, rubs, or gallops LUNGS: Clear to auscultation bilaterally. No wheezes. No rhonchi ABDOMEN: Soft, nontender, nondistended. Positive bowel sounds. Normal active bowel sounds NEUROLOGICAL: Alert and oriented times three. Cranial nerves II through XII grossly intact. Sensation absent in bilat feet and ankles in stock pattern EXTREMITIES: 5\5 strength bilateral upper extremities. 4\5 strength right hip flexion and knee extension 2/5 right ankle DF 4/5 strength in left lower extremity. SKIN: right medial foot wound with granulation tissue, macerated, not malodorous right medial calf incision with sutures c/d/i bilateral psoriatic patches scattered over LE right groin sutures c/d/i medial right calf sutures c/d/i sacral erythema and moisture with psoriatic lesions, ASSESSMENT:73-year-old M with past medical history of DM, CKD CAD, peripheral neuropathy who presents status post right toe amputation with wound vac. PLAN: 1. Rehab: PT, OT. 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 Neuro: peripheral neuropathy- c/u glycemic control 3. ID: MRSA and enterococcus osteomyelitis, c/u Daptomycin IV for total of 6 weeks- will consider ID consult -c/u wound vac change MWF -monitor CRP/ESR 4. CArdio: pmh HTn and CHF- c/u BP meds and diuretics, medicine consulted to assist, will decrease torsemide to 10mg BID given Pot Runner of 2 and elvated BUN -will increase Cozaar to 100mg for elevated BPs -Afib on eliquis 5. Endo: pmh DM- c/u insulin and adjust prn 6. Vascular: pmh PVD s/p multiple interventions- has f/u with vascular surgeon 01/16/19 for suture removal 7. Pain:c/u gabapentin 8. Psych: c/u remeron for depression and insomnia-stable 9. Skin: BID dressing changes to bilat calves, wound vac MWF -corn starch to sacrum and cover with optifoam 10. GI ppx: protonix 11. DVT ppx: on eliquis 12. Renal: recent MARLEN, will monitor, needs f/u with nephrology on discharge- c/u decreased Torsemide dosing for now Pot Runner better at 1.74 down from 2.04 13. Dispo 01/05/19 to home, progressing towards goals Allergies Coded Allergies: amlodipine (Verified Allergy, Unknown, 12/23/18) atorvastatin (Verified Allergy, Unknown, HIVES, 12/23/18) rosuvastatin (Verified Allergy, Unknown, HIVES, 12/23/18) simvastatin (Verified Allergy, Unknown, HIVES, 12/23/18) spironolactone (Verified Allergy, Unknown, SWELLING, 12/23/18) Vital Signs Vital Signs Date Time Temp Pulse Resp B/P (MAP) Pulse Ox O2 Delivery O2 Flow Rate FiO2 12/27/18 09:22 148/58 12/27/18 05:58 97.7 63 18 96 Laboratory Data CBC/BMP Laboratory Tests 12/26/18 11:21 Red Blood Count 3.13 L, Mean Corpuscular Volume 101.6 H, Mean Corpuscular Hemoglobin 29.4, Mean Corpuscular Hemoglobin Concent 28.9 L, Red Cell Distribution Width 19.9 H, Neutrophils (%) (Auto) 68.0 H, Lymphocytes (%) (Auto) 16.6 L, Monocytes (%) (Auto) 9.5 H, Eosinophils (%) (Auto) 3.9 H, Basophils (%) (Auto) 0.8, Neutrophils # (Auto) 5.2, Lymphocytes # (Auto) 1.3 L, Monocytes # (Auto) 0.7, Eosinophils # (Auto) 0.3, Basophils # (Auto) 0.1, Calcium Level 8.8 Labs 24H Laboratory Tests 2 12/26/18 11:21: Immature Granulocyte % (Auto) 1.2, White Blood Count 7.7, Red Blood Count 3.13L, Hemoglobin 9.2L, Hematocrit 31.8L, Mean Corpuscular Volume 101.6H, Mean Corpuscular Hemoglobin 29.4, Mean Corpuscular Hemoglobin Concent 28.9L, Red Cell Distribution Width 19.9H, Platelet Count 197, Neutrophils (%) (Auto) 68.0H, Lymphocytes (%) (Auto) 16.6L, Monocytes (%) (Auto) 9.5H, Eosinophils (%) (Auto) 3.9H, Basophils (%) (Auto) 0.8, Neutrophils # (Auto) 5.2, Lymphocytes # (Auto) 1 .3L, Monocytes # (Auto) 0.7, Eosinophils # (Auto) 0.3, Basophils # (Auto) 0.1, Nucleated Red Blood Cells % (auto) 0.0, Erythrocyte Sedimentation Rate 63H, Anion Gap 6L, Glomerular Filtration Rate 34.3L, Blood Urea Nitrogen 41H, Creatinine 2.04H, Sodium Level 146H, Potassium Level 3.8, Chloride Level 111H, Carbon Dioxide Level 29, Calcium Level 8.8, C-Reactive Protein, Quantitative 1.66H 12/26/18 11:41: Bedside Glucose (Misc Panel) 91 12/26/18 16:43: Bedside Glucose (Misc Panel) 121H 12/26/18 20:08: Bedside Glucose (Misc Panel) 171H 12/27/18 06:28: Bedside Glucose (Misc Panel) 102 Current Medications Current Medications Current Medications Acetaminophen (Tylenol Tab) 1,000 mg TID PO Last administered on 12/26/18at 17:15; Start 12/23/18 at 16:00 Al Hydrox/Mg Hydrox/Simethicone (Mylanta) 30 ml Q4HP PRN PO DYSPEPSIA; Start 12/23/18 at 14:30 Albuterol Sulfate (Proventil, Ventolin Hfa) 2 puff Q4HP PRN INH SHORTNESS OF BREATH; Start 12/23/18 at 14:30 Allopurinol (Zyloprim) 100 mg DAILY PO Last administered on 12/27/18 09:21; Start 12/24/18 at 09:00 Apixaban (Eliquis) 5 mg BID PO Last administered on 12/27/18at 09:23; Start 12/23/18 at 21:00 Bisacodyl (Dulcolax Tab) 5 mg DAILYPRN PRN PO CONSTIPATION; Start 12/23/18 at 14:30 Calcium Carbonate (Tums) 500 mg TID PRN PO INDIGESTION; Start 12/23/18 at 14:30 Carvedilol (COReg) 25 mg BID PO Last administered on 12/26/18 09:41; Start 12/23/18 at 18:00 Clopidogrel Bisulfate (PLAVix) 75 mg DAILY PO Last administered on 12/27/18 09:22; Start 12/24/18 at 09:00 Daptomycin 1000 mg/Sodium Chloride 70 ml @ 120 mls/hr Q24H IV Last administered on 12/26/18 17:13; Start 12/24/18 at 18:00 Daptomycin 1050 mg/Sodium Chloride 71 ml @ 71 mls/hr Q24H IV Last administered on 12/23/18at 20:42; Start 12/23/18 at 18:30; Stop 12/24/18 at 11:41; Status DC Dextrose (Dextrose 50%) 25 ml ASDIRECTED PRN IV SEE LABEL COMMENTS; Start 12/23/18 at 14:30 Docusate Sodium (Colace) 100 mg BID PO Last administered on 12/27/18 09:21; Start 12/23/18 at 21:00 Gabapentin (Neurontin) 300 mg QHS PO Last administered on 12/26/18at 22:27; Start 12/23/18 at 21:00 Glucagon (Glucagon) 1 mg ASDIRECTED PRN SC SEE LABEL COMMENTS; Start 12/23/18 at 14:30 Glucose (Glucose) 16 GM ASDIRECTED PRN PO SEE LABEL COMMENTS; Start 12/23/18 at 14:30 Heparin Sodium (Heparin Lock Flush 10units/ml) 10 units ASDIRECTED PRN IV SEE LABEL COMMENTS Last administered on 12/26/18at 17:18; Start 12/24/18 at 00:30 Heparin Sodium (Heparin Lock Flush 10units/ml) 10 units HLF IV Last administered on 12/27/18at 06:28; Start 12/24/18 at 06:00 Home Med (Med Rec Complete!) ASDIRECTED XX ; Start 12/23/18 at 16:00; Stop 12/23/18 at 16:00; Status DC Hydralazine HCl (Apresoline) 25 mg BID PO Last administered on 12/24/18at 09:02; Start 12/23/18 at 18:41; Stop 12/24/18 at 11:43; Status DC Hydralazine HCl (Apresoline) 25 mg TID PO Last administered on 12/27/18at 09:22; Start 12/24/18 at 16:00 Hydralazine HCl (Apresoline) 50 mg BID PO ; Start 12/23/18 at 18:15; Stop 12/23/18 at 18:38; Status DC Insulin Detemir (Levemir Insulin) 10 units DAILY SC Last administered on 12/27/18at 09:21; Start 12/24/18 at 09:00 Insulin Human Lispro (HumaLOG INSULIN) SEE PROTOCOL TABLE AC SC Last administered on 12/27/18at 09:20; Start 12/23/18 at 17:30 Insulin Human Lispro (HumaLOG INSULIN) SEE PROTOCOL TABLE QHS SC ; Start 12/23/18 at 21:00 Lactobacillus Acidophilus (Bacid) 1 ea TID PO Last administered on 12/27/18at 09:21; Start 12/23/18 at 21:00 Losartan Potassium (Cozaar) 50 mg QAM PO Last administered on 12/26/18at 09:40; Start 12/24/18 at 09:00; Stop 12/26/18 at 10:43; Status DC Losartan Potassium (Cozaar) 100 mg QAM PO Last administered on 12/27/18at 09:21; Start 12/27/18 at 09:00 Magnesium Hydroxide (Milk Of Magnesia) 30 ml DAILYPRN PRN PO CONSTIPATION; Sta rt 12/23/18 at 14:30 Mineral Oil/White Petrolatum (Eucerin) apply to lower legs then w... DAILY TOP Last administered on 12/27/18 09:23; Start 12/24/18 at 09:00 Mirtazapine (Remeron) 15 mg QHS PO Last administered on 12/26/18 22:27; Start 12/23/18 at 21:00 Multivitamins (Theragram-M) 1 tab DAILY@1200 PO Last administered on 12/26/18 12:00; Start 12/24/18 at 12:00 Senna (Senokot) 1 tab QHS PO Last administered on 12/26/18 22:27; Start 12/23/18 at 21:00 Sodium Chloride (Saline Lock Flush) 10 ml ASDIRECTED PRN IV SEE LABEL COMMENTS Last administered on 12/26/18 17:18; Start 12/24/18 at 00:30 Sodium Chloride (Saline Lock Flush) 10 ml SLF IV Last administered on 12/27/18 06:28; Start 12/24/18 at 06:00 Tamsulosin HCl (Flomax) 0.4 mg QHS PO Last administered on 12/26/18 22:26; Start 12/23/18 at 21:00 Torsemide (Demadex) 10 mg BID@09,17 PO Last administered on 12/27/18 09:22; Start 12/26/18 at 17:00 Torsemide (Demadex) 20 mg BID@09,17 PO Last administered on 12/26/18 05:57; Start 12/23/18 at 17:00; Stop 12/26/18 at 12:48; Status DC Vitamin D (Vitamin D) 2,000 units DAILY PO Last administered on 12/27/18 09:22; Start 12/24/18 at 09:00 ROSSANA SAENZ MD Dec 27, 2018 11:08
[2018-12-27] MEDS: MULTIVITAMINS/MINERALS THERAP 1 TAB PO SCH (12:42)
[2018-12-27] MEDS: ACETAMINOPHEN TAB 650MG DOSE (2X325MG) PO SCH ×3 (13:00→21:00)
[2018-12-27 13:26] LABS: BASO # 0.1 10^3/uL (0.0-0.2); BASO % 0.6 % (0.0-1.0); EOS # 0.4 10^3/uL (0.0-0.50); EOS % 3.7 % (0.0-3.0); HEMATOCRIT 35.4 % (42.0-52.0); HEMOGLOBIN 10.1 g/dl (13.5-17.5); LYMPH # 1.2 10^3/uL (1.5-4.5); LYMPH % 12.5 % (24.0-44.0); MEAN CORPUSCULAR HEMOGLOBIN 29.1 pg (27.0-33.0); MEAN CORPUSCULAR HGB CONC 28.5 g/dl (32.0-36.5); MONO # 0.7 10^3/uL (0.0-0.8); NEUTROPHILS # 7.1 10^3/uL (1.8-7.7); NEUTROPHILS % 75.5 % (36.0-66.0); PLATELET COUNT, AUTOMATED 219 10^3/uL (150-450); RED BLOOD COUNT 3.47 10^6/uL (4.30-6.10); WHITE BLOOD COUNT 9.4 10^3/uL (4.0-10.0)
[2018-12-27 13:45] LABS: CALCIUM LEVEL 9.5 MG/DL (8.8-10.2); CREATININE FOR GFR 1.74 MG/DL (0.70-1.30); GLOMERULAR FILTRATION RATE 41.3 (>42); POTASSIUM SERUM 3.9 MEQ/L (3.5-5.1)
[2018-12-27 14:00] VITALS: BP 168/80
[2018-12-27] MEDS: METOPROLOL TART 25 MG TABLET PO SCH ×2 (14:00→21:48)
[2018-12-27] MEDS: DAPTOmycin 1,000 MG in NS 50 ML IV SCH (17:51)
[2018-12-27] MEDS: SODIUM CHLORIDE 0.9% INJ 10 ML SYR IV PRN (17:55)
[2018-12-27 20:00] VITALS: BP 170/62
[2018-12-27] MEDS: SENNA 8.6 MG TAB (SENOKOT) PO SCH (21:00)
[2018-12-27] MEDS: TAMSULOSIN 0.4 MG CAP PO SCH (21:48)
[2018-12-27] MEDS: GABAPENTIN 300 MG CAP PO SCH (21:48)
[2018-12-27] MEDS: MIRTAZAPINE 15 MG TAB PO SCH (21:48)
[2018-12-28 06:00] VITALS: BP 180/78
[2018-12-28] MEDS: SODIUM CHLORIDE 0.9% INJ 10 ML SYR IV SCH ×3 (06:30→20:29)
[2018-12-28] MEDS: METOPROLOL TART 25 MG TABLET PO SCH ×3 (06:31→20:26)
[2018-12-28 07:16] LABS: CALCIUM LEVEL 8.6 MG/DL (8.8-10.2); CREATININE FOR GFR 1.78 MG/DL (0.70-1.30); GLOMERULAR FILTRATION RATE 40.2 (>42); POTASSIUM SERUM 3.9 MEQ/L (3.5-5.1)
[2018-12-28] MEDS: LACTOBACILLUS ACIDOPHILUS CAP (BACID) PO SCH ×3 (08:15→20:28)
[2018-12-28] MEDS: CLOPIDOGREL 75 MG TAB PO SCH (08:15)
[2018-12-28] MEDS: VITAMIN D 1,000 INTERNATIONAL UNITS TABLET PO SCH (08:15)
[2018-12-28] MEDS: APIXABAN 5 MG TAB (ELIQUIS) PO SCH ×2 (08:16→20:27)
[2018-12-28] MEDS: ACETAMINOPHEN TAB 650MG DOSE (2X325MG) PO SCH ×4 (08:16→20:28)
[2018-12-28] MEDS: TORSEMIDE 10 MG TABLET PO SCH ×2 (08:16→17:11)
[2018-12-28] MEDS: LOSARTAN 50 MG TAB PO SCH (08:16)
[2018-12-28] MEDS: ALLOPURINOL 100 MG TAB PO SCH (08:16)
[2018-12-28] MEDS: LEVEMIR (INSULIN DETEMIR) 1 UNITS/0.01ML SC SCH (08:17)
[2018-12-28] MEDS: HumaLOG INSULIN (NovoLOG) PER UNIT SC SCH ×4 (08:17→20:13)
[2018-12-28] MEDS: **hydrALAZINE** 50 MG TAB PO SCH ×3 (08:19→20:27)
[2018-12-28] MEDS: DOCUSATE SODIUM 100 MG CAP PO SCH ×2 (09:00→20:28)
[2018-12-28] MEDS: EUCERIN 120GM CREAM TOP SCH (09:00)
[2018-12-28] MEDS ORDERED: SODIUM CHLORIDE 0.45% 1000 ML IV ONE (11:30)
--- NOTE | 2018-12-28 11:39 | IPNPDOC ---
PM&R Progress Note DATE OF SERVICE: Dec 28, 2018 Respiratory Therapy Technician Progress Note Subjective: Patient reports he is feeling well overall. He is agreeable to receive fluids and reports he is not short of breath at rest. REVIEW OF SYSTEMS: The following is a completed review of systems and has been reviewed. Review of systems otherwise unremarkable. PAIN: Patient self reports no pain EYES: no recent vision changes EARS, NOSE, & THROAT: denies dysphagia, rhinorrhea CARDIOVASCULAR: denies chest pain or palpitations PULMONARY: Negative. +orthopnea GASTROINTESTINAL:denies diarrhea/constipation GENITOURINARY: denies incontinence or dysuria MUSCULOSKELETAL: bilat LE weakness, right hip fracture NEUROLOGICAL: peripheral neuropathy HEMATOLOGICAL: +anemia SKIN: right foot ulcer and venous stasis changes in bilat calves PSYCHIATRIC: +depressed All other review of systems found to be negative. PHYSICAL EXAMINATION: VITAL SIGNS: Please see below. GENERAL: Pleasant and cooperative. No acute distress. HEENT: PERRL. Extraocular movements intact. Clear conjunctiva CARDIOVASCULAR: Irregular rate and rhythm. No murmurs, rubs, or gallops LUNGS: Clear to auscultation bilaterally. No wheezes. No rhonchi ABDOMEN: Soft, nontender, nondistended. Positive bowel sounds. Normal active bowel sounds NEUROLOGICAL: Alert and oriented times three. Cranial nerves II through XII grossly intact. Sensation absent in bilat feet and ankles in stock pattern EXTREMITIES: 5\5 strength bilateral upper extremities. 4\5 strength right hip flexion and knee extension 2/5 right ankle DF 4/5 strength in left lower extremity. SKIN: right medial foot wound with granulation tissue, macerated, not malodorous right medial calf incision with sutures c/d/i bilateral psoriatic patches scattered over LE right groin sutures c/d/i medial right calf sutures c/d/i sacral erythema and moisture with psoriatic lesions ASSESSMENT:73-year-old M with past medical history of DM, CKD CAD, peripheral neuropathy who presents status post right toe amputation with wound vac. PLAN: 1. Rehab: PT, OT. assess for DMEs, ambulating with RW -goal to strengthen core, LLE for optimal ambulation short distances 30-50 feet max with forefoot off-fusing furnace loader (PWB for RLE) -strengthen upper extremities 2. Neuro: peripheral neuropathy- c/u glycemic control 3. ID: MRSA and enterococcus osteomyelitis, c/u Daptomycin IV for total of 6 weeks- will consider ID consult -c/u wound vac change MWF -monitor CRP/ESR 4. CArdio: pmh HTN and CHF- c/u BP meds and diuretics, medicine consulted to as sist -c/u Cozaar to 100mg for elevated BPs and hydralazine -Afib on eliquis 5. Endo: pmh DM- c/u insulin and adjust prn 6. Vascular: pmh PVD s/p multiple interventions- has f/u with vascular surgeon 01/16/19 for suture removal 7. Pain:c/u gabapentin 8. Psych: c/u Remeron for depression and insomnia-stable 9. Skin: BID dressing changes to bilat calves, wound vac MWF -corn starch to sacrum and cover with optifoam 10. GI ppx: protonix 11. DVT ppx: on eliquis 12. Renal: recent MARLEN, will monitor, needs f/u with nephrology on discharge- c/u decreased Torsemide dosing for now, c/u to monitor kidney function - will receive 500cc 1/2 NS today for hypernatremia 13. Dispo 01/05/19 to home, progressing towards goals Allergies Coded Allergies: amlodipine (Verified Allergy, Unknown, 12/23/18) atorvastatin (Verified Allergy, Unknown, HIVES, 12/23/18) rosuvastatin (Verified Allergy, Unknown, HIVES, 12/23/18) simvastatin (Verified Allergy, Unknown, HIVES, 12/23/18) spironolactone (Verified Allergy, Unknown, SWELLING, 12/23/18) Vital Signs Vital Signs Date Time Temp Pulse Resp B/P (MAP) Pulse Ox O2 Delivery O2 Flow Rate FiO2 12/28/18 08:19 180/78 12/28/18 06:31 76 12/28/18 06:00 97.8 22 96 Laboratory Data CBC/BMP Laboratory Tests 12/27/18 13:14 Red Blood Count 3.47 L, Mean Corpuscular Volume 102.0 H, Mean Corpuscular Hemoglobin 29.1, Mean Corpuscular Hemoglobin Concent 28.5 L, Red Cell Distribution Width 20.0 H, Neutrophils (%) (Auto) 75.5 H, Lymphocytes (%) (Auto) 12.5 L, Monocytes (%) (Auto) 7.0 H, Eosinophils (%) (Auto) 3.7 H, Basophils (%) (Auto) 0.6, Neutrophils # (Auto) 7.1, Lymphocytes # (Auto) 1.2 L, Monocytes # (Auto) 0.7, Eosinophils # (Auto) 0.4, Basophils # (Auto) 0.1, Calcium Level 9.5 12/28/18 06:29 Calcium Level 8.6 L Labs 24H Laboratory Tests 2 12/27/18 12:35: Bedside Glucose (Misc Panel) 76L 12/27/18 13:14: Immature Granulocyte % (Auto) 0.7, White Blood Count 9.4, Red Blood Count 3.47L, Hemoglobin 10.1L, Hematocrit 35.4L, Mean Corpuscular Volume 102.0H, Mean Corpuscular Hemoglobin 29.1, Mean Corpuscular Hemoglobin Concent 28.5L, Red Cell Distribution Width 20.0H, Platelet Count 219, Neutrophils (%) (Auto) 75.5H, Lymphocytes (%) (Auto) 12.5L, Monocytes (%) (Auto) 7.0H, Eosinophils (%) (Auto) 3.7H, Basophils (%) (Auto) 0.6, Neutrophils # (Auto) 7.1, Lymphocytes # (Auto) 1.2L, Monocytes # (Auto) 0.7, Eosinophils # (Auto) 0.4, Basophils # (Auto) 0.1, Nucleated Red Blood Cells % (auto) 0.0, Anion Gap 6L, Glomerular Filtration Rate 41.3L, Blood Urea Nitrogen 41H, Creatinine 1.74H, Sodium Level 146H, Potassium Level 3.9, Chloride Level 111H, Carbon Dioxide Level 29, Calcium Level 9.5 12/27/18 17:21: Bedside Glucose (Misc Panel) 111H 12/27/18 21:45: Bedside Glucose (Misc Panel) 176H 12/28/18 06:29: Anion Gap 7L, Glomerular Filtration Rate 40.2L, Blood Urea Nitrogen 38H, Creatinine 1.78H, Sodium Level 148H, Potassium Level 3.9, Chloride Level 112H, Carbon Dioxide Level 29, Calcium Level 8.6L 12/28/18 06:51: Bedside Glucose (Misc Panel) 112H Current Medications Current Medications Current Medications Acetaminophen (Tylenol Tab) 650 mg QID PO Last administered on 12/28/18 08:16; Start 12/27/18 at 13:00 Acetaminophen (Tylenol Tab) 1,000 mg TID PO Last administered on 12/26/18 17 :15; Start 12/23/18 at 16:00; Stop 12/27/18 at 13:57; Status DC Al Hydrox/Mg Hydrox/Simethicone (Mylanta) 30 ml Q4HP PRN PO DYSPEPSIA; Start 12/23/18 at 14:30 Albuterol Sulfate (Proventil, Ventolin Hfa) 2 puff Q4HP PRN INH SHORTNESS OF BREATH; Start 12/23/18 at 14:30 Allopurinol (Zyloprim) 100 mg DAILY PO Last administered on 12/28/18 08:16; Start 12/24/18 at 09:00 Apixaban (Eliquis) 5 mg BID PO Last administered on 12/28/18 08:16; Start 12/23/18 at 21:00 Bisacodyl (Dulcolax Tab) 5 mg DAILYPRN PRN PO CONSTIPATION; Start 12/23/18 at 14:30 Calcium Carbonate (Tums) 500 mg TID PRN PO INDIGESTION; Start 12/23/18 at 14:30 Carvedilol (COReg) 25 mg BID PO Last administered on 12/26/18 09:41; Start 12/23/18 at 18:00; Stop 12/27/18 at 13:57; Status DC Clopidogrel Bisulfate (PLAVix) 75 mg DAILY PO Last administered on 12/28/18 08:15; Start 12/24/18 at 09:00 Daptomycin 1000 mg/Sodium Chloride 70 ml @ 120 mls/hr Q24H IV Last administered on 12/27/18 17:51; Start 12/24/18 at 18:00 Daptomycin 1050 mg/Sodium Chloride 71 ml @ 71 mls/hr Q24H IV Last administered on 12/23/18at 20:42; Start 12/23/18 at 18:30; Stop 12/24/18 at 11:41; Status DC Dextrose (Dextrose 50%) 25 ml ASDIRECTED PRN IV SEE LABEL COMMENTS; Start 12/23/18 at 14:30 Docusate Sodium (Colace) 100 mg BID PO Last administered on 7/2/19at 09:21; Start 12/23/18 at 21:00 Gabapentin (Neurontin) 300 mg QHS PO Last administered on 12/27/18at 21:48; Start 12/23/18 at 21:00 Glucagon (Glucagon) 1 mg ASDIRECTED PRN SC SEE LABEL COMMENTS; Start 12/23/18 at 14:30 Glucose (Glucose) 16 GM ASDIRECTED PRN PO SEE LABEL COMMENTS; Start 12/23/18 at 14:30 Heparin Sodium (Heparin Lock Flush 10units/ml) 10 units ASDIRECTED PRN IV SEE Camacho BERNAL COMMENTS Last administered on 12/27/18at 17:54; Start 12/24/18 at 00:30 Heparin Sodium (Heparin Lock Flush 10units/ml) 10 units HLF IV Last administered on 12/28/18at 06:30; Start 12/24/18 at 06:00 Home Med (Med Rec Complete!) ASDIRECTED XX ; Start 12/23/18 at 16:00; Stop 12/23/18 at 16:00; Status DC Hydralazine HCl (Apresoline) 25 mg BID PO Last administered on 12/24/18at 09:02; Start 12/23/18 at 18:41; Stop 12/24/18 at 11:43; Status DC Hydralazine HCl (Apresoline) 25 mg TID PO Last administered on 12/27/18at 21:48; Start 12/24/18 at 16:00; Stop 12/28/18 at 07:27; Status DC Hydralazine HCl (Apresoline) 50 mg BID PO ; Start 12/23/18 at 18:15; Stop 12/23/18 at 18:38; Status DC Hydralazine HCl (Apresoline) 50 mg TID PO Last administered on 12/28/18at 08:19; Start 12/28/18 at 09:00 Insulin Detemir (Levemir Insulin) 10 units DAILY SC Last administered on 12/28/18 08:17; Start 12/24/18 at 09:00 Insulin Human Lispro (HumaLOG INSULIN) SEE PROTOCOL TABLE AC SC Last administered on 12/28/18at 08:17; Start 12/23/18 at 17:30 Insulin Human Lispro (HumaLOG INSULIN) SEE PROTOCOL TABLE QHS SC ; Start 12/23/18 at 21:00 Lactobacillus Acidophilus (Bacid) 1 ea TID PO Last administered on 12/28/18 08:15; Start 12/23/18 at 21:00 Losartan Potassium (Cozaar) 50 mg QAM PO Last administered on 12/26/18 09:40; Start 12/24/18 at 09:00; Stop 12/26/18 at 10:43; Status DC Losartan Potassium (Cozaar) 100 mg QAM PO Last administered on 12/28/18 08:16; Start 12/27/18 at 09:00 Magnesium Hydroxide (Milk Of Magnesia) 30 ml DAILYPRN PRN PO CONSTIPATION; Start 12/23/18 at 14:30 Metoprolol Tartrate (Lopressor) 25 mg Q8H PO Last administered on 12/28/18 06:31; Start 12/27/18 at 14:00 Mineral Oil/White Petrolatum (Eucerin) apply to lower legs then w... DAILY TOP Last administered on 12/27/18 09:23; Start 12/24/18 at 09:00 Mirtazapine (Remeron) 15 mg QHS PO Last administered on 12/27/18 21:48; Start 12/23/18 at 21:00 Multivitamins (Theragram-M) 1 tab DAILY@1200 PO Last administered on 12/27/18 12:42; Start 12/24/18 at 12:00 Senna (Senokot) 1 tab QHS PO Last administered on 12/26/18 22:27; Start 12/23/18 at 21:00 Sodium Chloride (Saline Lock Flush) 10 ml ASDIRECTED PRN IV SEE LABEL COMMENTS Last administered on 12/27/18 17:55; Start 12/24/18 at 00:30 Sodium Chloride (Saline Lock Flush) 10 ml SLF IV Last administered on 12/28/18 06:30; Start 12/24/18 at 06:00 Tamsulosin HCl (Flomax) 0.4 mg QHS PO Last administered on 12/27/18 21:48; Start 12/23/18 at 21:00 Torsemide (Demadex) 10 mg BID@,17 PO Last administered on 12/28/18 08:16; Start 12/26/18 at 17:00 Torsemide (Demadex) 20 mg BID@09,17 PO Last administered on 12/26/18at 05:57; Start 12/23/18 at 17:00; Stop 12/26/18 at 12:48; Status DC Vitamin D (Vitamin D) 2,000 units DAILY PO Last administered on 12/28/18at 08:15; Start 12/24/18 at 09:00 ROSSANA SAENZ MD Dec 28, 2018 11:38
[2018-12-28] MEDS ORDERED: NS 0.45% 500 ML IV SCH (11:45)
[2018-12-28] MEDS: MULTIVITAMINS/MINERALS THERAP 1 TAB PO SCH (13:39)
[2018-12-28 17:10] VITALS: BP 186/78
[2018-12-28] MEDS: DAPTOmycin 1,000 MG in NS 50 ML IV SCH (17:12)
[2018-12-28] MEDS: TAMSULOSIN 0.4 MG CAP PO SCH (20:26)
[2018-12-28] MEDS: GABAPENTIN 300 MG CAP PO SCH (20:26)
[2018-12-28] MEDS: MIRTAZAPINE 15 MG TAB PO SCH (20:27)
[2018-12-28] MEDS: SENNA 8.6 MG TAB (SENOKOT) PO SCH (20:29)
[2018-12-28 22:00] VITALS: BP 172/80
[2018-12-29] VITALS (7 sets, daily range): BP systolic 172–192; BP diastolic 76–80
[2018-12-29] MEDS: SODIUM CHLORIDE 0.9% INJ 10 ML SYR IV SCH ×3 (05:39→21:54)
[2018-12-29] MEDS: METOPROLOL TART 25 MG TABLET PO SCH ×3 (05:39→21:53)
[2018-12-29] MEDS: HumaLOG INSULIN (NovoLOG) PER UNIT SC SCH ×4 (07:29→21:00)
--- NOTE | 2018-12-29 07:35 | IPNPDOC ---
Subjective Date Seen The patient was seen on 12/29/18. Subjective Chief Complaint/HPI Pateint does not offer any complaints today. Concerned that his blood pressure is still high sometimes going up to 200s. No fevr or chills, nochest pain or sob , No abdominal pain , nausea or vomiting, working with PT. Objective Physical Examination General Exam: Positive: Alert, Cooperative, No Acute Distress Eye Exam: Positive: PERRLA, Conjunctiva & lids normal, EOMI; Negative: Sclera icteric ENT Exam: Positive: Atraumatic, Mucous membr. moist/pink, Pharynx Normal Neck Exam: Positive: Supple; Negative: JVD, thyromegaly Chest Exam: Positive: Wheezing (on deep expiration), Diminished Heart Exam: Positive: Rate Normal, Irregular Rhythm, Normal S1, Normal S2; Negative: Murmurs, Rubs Abdomen Exam: Positive: Normal bowel sounds, Soft; Negative: Tenderness, Hepatospenomegaly Extremity Exam: Positive: Edema, Swelling, Other (both legs with compression bandages on. ) Skin Exam: Positive: Lesion (psoriatic rashes) Assessment /Plan Assessment 73M pmh Afib , CAD s/p [place] and stenting , CHF, CKD3, DM2, peripheral neuropathy, HTN, gout, anemia who presented to [facility] on 11/22/18 with right leg pain and found to have gangrene of his right great toe that he said began in September 2018.He was evaluated by vascular surgery and underwent a left femoral puncture under ultrasound guidance, aortogram with right leg runoff on 11/22/18. Following this procedure it was decided he needed a right femoral endarterectomy, right femoral popliteal bypass with a right first toe amputation which was performed 12/02/18 without initial complication. He was followed during his stay by renal for worsening creatinine levels, but dialysis was not deemed necessary. He developed purulence and drainage from his amputation site so his sutures were removed and wound cultures, followed by washout and debridement on 12/13/18 with removal of a portion of the 1st and 2nd metatarsal bones. . He was started on IV Vanco and Zosyn, but due to worsening renal function eventually was switched to Linezolid per ID recs for a MRSA wound culture and managed with a wound VAC. His bone culture was positive for osteomyelitis and positive for MRSA and enterococcus, so he was switched to IV Daptomycin for a total of 6 weeks through January 24, 2019. Uncontrolled hypertension continue losartan, metoprolol, torsemide Hydralazine increased to 100 tid CKD stage 3 creatinine stable continue to monitor intermittently Gangrene and Osteomyelitis of Rt toe s/p amputation of right great toe, portions of right first and second metatarsal bones in November 2018 Cont Daptomycin for total of 6 weeks until January 24 Weekly CK levels Wound vac in place follow instructions for wound care from discharge summary PAD with nonhealing right great toe ulcer and gangrene s/p right femoral endarterectomy, right femoral popliteal bypass at [facility] in October 2018 CAD s/p CABG and stents Currently stable denies any angina/palpitations Cont plavix, betablocker, statin Statin Type 2 diabetes with neuropathy sugars controlled continue levemir and lispro gabapentin Atrial fibrillation Rate controlled with metoprolol Cont Anticoagulation Eliquis Morbid Obesity with BMI of 41.8 complicating care BPH flomax Gout allopurinol Bilateral venous stasis has compression dressings on Psoriasis DVT prophylaxis On Eliquis Plan/VTE VTE Prophylaxis Ordered?: Yes VS, I&O, 24H, Fishbone Vital Signs/I&O Vital Signs Date Time Temp Pulse Resp B/P (MAP) Pulse Ox O2 Delivery O2 Flow Rate FiO2 12/29/18 05:39 62 170/80 12/28/18 22:00 99.1 20 97 I&O- Last 24 Hours up to 6 AM 12/29/18 05:59 Intake Total 1785 ml Output Total 1555 ml Balance 230 ml Laboratory Data 24H LABS Laboratory Tests 2 12/28/18 06:51: Bedside Glucose (Misc Panel) 112H 12/28/18 11:40: Bedside Glucose (Misc Panel) 87 12/28/18 16:28: Bedside Glucose (Misc Panel) 88 12/28/18 20:03: Bedside Glucose (Misc Panel) 200H BRENDA REYEZ MD Dec 29, 2018 06:55
[2018-12-29 08:14] LABS: CALCIUM LEVEL 8.8 MG/DL (8.8-10.2); CREATININE FOR GFR 1.84 MG/DL (0.70-1.30); GLOMERULAR FILTRATION RATE 38.7 (>42); POTASSIUM SERUM 4.1 MEQ/L (3.5-5.1)
[2018-12-29] MEDS: LOSARTAN 50 MG TAB PO SCH (08:43)
[2018-12-29] MEDS: LEVEMIR (INSULIN DETEMIR) 1 UNITS/0.01ML SC SCH (08:43)
[2018-12-29] MEDS: CLOPIDOGREL 75 MG TAB PO SCH (08:43)
[2018-12-29] MEDS: ALLOPURINOL 100 MG TAB PO SCH (08:43)
[2018-12-29] MEDS: APIXABAN 5 MG TAB (ELIQUIS) PO SCH ×2 (08:43→21:53)
[2018-12-29] MEDS: VITAMIN D 1,000 INTERNATIONAL UNITS TABLET PO SCH (08:43)
[2018-12-29] MEDS: EUCERIN 120GM CREAM TOP SCH (08:44)
[2018-12-29] MEDS: ACETAMINOPHEN TAB 650MG DOSE (2X325MG) PO SCH ×4 (08:44→21:52)
[2018-12-29] MEDS: LACTOBACILLUS ACIDOPHILUS CAP (BACID) PO SCH ×3 (08:44→21:52)
[2018-12-29] MEDS: **hydrALAZINE** 50 MG TAB PO SCH ×3 (08:44→21:53)
[2018-12-29] MEDS: TORSEMIDE 10 MG TABLET PO SCH ×2 (08:45→16:26)
[2018-12-29] MEDS: DOCUSATE SODIUM 100 MG CAP PO SCH ×2 (08:47→21:53)
[2018-12-29] MEDS: MULTIVITAMINS/MINERALS THERAP 1 TAB PO SCH (12:20)
[2018-12-29] MEDS ORDERED: cloNIDine 0.1 MG TAB PO ONE (15:45)
[2018-12-29] MEDS: DAPTOmycin 1,000 MG in NS 50 ML IV SCH (17:16)
[2018-12-29] MEDS: SODIUM CHLORIDE 0.9% INJ 10 ML SYR IV PRN (17:17)
[2018-12-29] MEDS: cloNIDine 0.1 MG TAB PO SCH (19:26)
[2018-12-29] MEDS: TAMSULOSIN 0.4 MG CAP PO SCH (21:52)
[2018-12-29] MEDS: GABAPENTIN 300 MG CAP PO SCH (21:52)
[2018-12-29] MEDS: MIRTAZAPINE 15 MG TAB PO SCH (21:53)
[2018-12-29] MEDS: SENNA 8.6 MG TAB (SENOKOT) PO SCH (21:53)
[2018-12-29] MEDS ORDERED: cloNIDine 0.1 MG TAB PO SCH (22:00)
[2018-12-30] MEDS: SODIUM CHLORIDE 0.9% INJ 10 ML SYR IV SCH ×3 (06:00→21:17)
[2018-12-30] MEDS: METOPROLOL TART 25 MG TABLET PO SCH ×3 (06:00→21:09)
[2018-12-30 06:07] VITALS: BP 180/80
[2018-12-30 06:45] VITALS: BP 162/78
[2018-12-30] MEDS: cloNIDine 0.1 MG TAB PO SCH ×2 (06:45→17:55)
[2018-12-30 06:59] LABS: BASO # 0.1 10^3/uL (0.0-0.2); BASO % 0.8 % (0.0-1.0); EOS # 0.4 10^3/uL (0.0-0.50); EOS % 5.9 % (0.0-3.0); HEMOGLOBIN 9.8 g/dl (13.5-17.5); LYMPH # 1.1 10^3/uL (1.5-4.5); LYMPH % 15.5 % (24.0-44.0); MEAN CORPUSCULAR HEMOGLOBIN 29.5 pg (27.0-33.0); MEAN CORPUSCULAR HGB CONC 28.8 g/dl (32.0-36.5); MEAN CORPUSCULAR VOLUME 102.4 fl (80.0-96.0); MONO # 0.6 10^3/uL (0.0-0.8); MONO % 7.9 % (0.0-5.0); NEUTROPHILS # 5.1 10^3/uL (1.8-7.7); NEUTROPHILS % 69.5 % (36.0-66.0); PLATELET COUNT, AUTOMATED 181 10^3/uL (150-450); RED BLOOD COUNT 3.32 10^6/uL (4.30-6.10); WHITE BLOOD COUNT 7.3 10^3/uL (4.0-10.0)
[2018-12-30 07:17] LABS: C REACTIVE PROTEIN QUANTITATIV 2.25 MG/DL (0.00-0.30); CALCIUM LEVEL 8.6 MG/DL (8.8-10.2); CREATININE FOR GFR 1.77 MG/DL (0.70-1.30); GLOMERULAR FILTRATION RATE 40.5 (>42)
[2018-12-30] MEDS: HumaLOG INSULIN (NovoLOG) PER UNIT SC SCH ×4 (09:01→21:00)
[2018-12-30] MEDS: LEVEMIR (INSULIN DETEMIR) 1 UNITS/0.01ML SC SCH (09:01)
[2018-12-30] MEDS: ALLOPURINOL 100 MG TAB PO SCH (09:02)
[2018-12-30] MEDS: CLOPIDOGREL 75 MG TAB PO SCH (09:02)
[2018-12-30] MEDS: LOSARTAN 50 MG TAB PO SCH (09:02)
[2018-12-30] MEDS: VITAMIN D 1,000 INTERNATIONAL UNITS TABLET PO SCH (09:02)
[2018-12-30] MEDS: DOCUSATE SODIUM 100 MG CAP PO SCH ×2 (09:02→21:00)
[2018-12-30] MEDS: APIXABAN 5 MG TAB (ELIQUIS) PO SCH ×2 (09:02→21:16)
[2018-12-30] MEDS: LACTOBACILLUS ACIDOPHILUS CAP (BACID) PO SCH ×3 (09:02→21:16)
[2018-12-30] MEDS: **hydrALAZINE** 50 MG TAB PO SCH ×3 (09:03→21:16)
[2018-12-30] MEDS: ACETAMINOPHEN TAB 650MG DOSE (2X325MG) PO SCH ×4 (09:03→21:00)
[2018-12-30] MEDS: TORSEMIDE 10 MG TABLET PO SCH ×2 (09:03→16:41)
[2018-12-30] MEDS: EUCERIN 120GM CREAM TOP SCH (09:41)
[2018-12-30] MEDS: MULTIVITAMINS/MINERALS THERAP 1 TAB PO SCH (13:22)
[2018-12-30 14:00] VITALS: BP 146/76
[2018-12-30] MEDS: DAPTOmycin 1,000 MG in NS 50 ML IV SCH (17:48)
[2018-12-30 20:00] VITALS: BP 150/76
[2018-12-30] MEDS: SENNA 8.6 MG TAB (SENOKOT) PO SCH (21:00)
[2018-12-30] MEDS: GABAPENTIN 300 MG CAP PO SCH (21:16)
[2018-12-30] MEDS: TAMSULOSIN 0.4 MG CAP PO SCH (21:16)
[2018-12-30] MEDS: MIRTAZAPINE 15 MG TAB PO SCH (21:16)
[2018-12-31 06:00] VITALS: BP 148/70
[2018-12-31] MEDS: cloNIDine 0.1 MG TAB PO SCH ×2 (06:24→18:56)
[2018-12-31] MEDS: SODIUM CHLORIDE 0.9% INJ 10 ML SYR IV SCH ×3 (06:47→21:26)
[2018-12-31] MEDS: METOPROLOL TART 25 MG TABLET PO SCH ×3 (06:47→21:26)
[2018-12-31] MEDS: HumaLOG INSULIN (NovoLOG) PER UNIT SC SCH ×4 (07:30→21:00)
--- NOTE | 2018-12-31 08:45 | IPNPDOC ---
Subjective Date Seen The patient was seen on 12/31/18. Subjective Chief Complaint/HPI No complaints today though concerned about the BP being high even with so many medications. No abdominal pain , having regular bowel movemnets, no chest pain or sob Objective Physical Examination General Exam: Positive: Alert, Cooperative, No Acute Distress Eye Exam: Positive: PERRLA, Conjunctiva & lids normal, EOMI; Negative: Sclera icteric ENT Exam: Positive: Atraumatic, Mucous membr. moist/pink, Pharynx Normal Neck Exam: Positive: Supple; Negative: JVD, thyromegaly Chest Exam: Positive: Wheezing (on deep expiration), Diminished Heart Exam: Positive: Rate Normal, Irregular Rhythm, Normal S1, Normal S2; Negative: Murmurs, Rubs Abdomen Exam: Positive: Normal bowel sounds, Soft; Negative: Tenderness, Hepatospenomegaly Extremity Exam: Positive: Edema, Swelling, Other (both legs with compression bandages on. ) Skin Exam: Positive: Lesion (psoriatic rashes) Assessment /Plan Assessment 73M pmh Afib , CAD s/p [place] and stenting , CHF, CKD3, DM2, peripheral neuropathy, HTN, gout, anemia who presented to [facility] on 11/22/18 with right leg pain and found to have gangrene of his right great toe that he said began in September 2018.He was evaluated by vascular surgery and underwent a left femoral puncture under ultrasound guidance, aortogram with right leg runoff on 11/22/18. Following this procedure it was decided he needed a right femoral endarterectomy, right fe moral popliteal bypass with a right first toe amputation which was performed 12/02/18 without initial complication. He was followed during his stay by renal for worsening creatinine levels, but dialysis was not deemed necessary. He developed purulence and drainage from his amputation site so his sutures were removed and wound cultures, followed by washout and debridement on 12/13/18 with removal of a portion of the 1st and 2nd metatarsal bones. . He was started on IV Vanco and Zosyn, but due to worsening renal function eventually was switched to Linezolid per ID recs for a MRSA wound culture and managed with a wound VAC. His bone culture was positive for osteomyelitis and positive for MRSA and enterococcus, so he was switched to IV Daptomycin for a total of 6 weeks through January 24, 2019. Uncontrolled hypertension continue losartan, metoprolol, torsemide hydralazine started on clonidine on 12/30/18 today BP well controlled. CKD stage 3 creatinine stable continue to monitor intermittently Gangrene and Osteomyelitis of Rt toe s/p amputation of right great toe, portions of right first and second metatarsal bones in November 2018 Cont Daptomycin for total of 6 weeks until January 24 Weekly CK levels Wound vac in place follow instructions for wound care from discharge summary PAD with nonhealing right great toe ulcer and gangrene s/p right femoral endarterectomy, right femoral popliteal bypass at [facility] in October 2018 CAD s/p CABG in 2015 and stents Currently stable denies any angina/palpitations Cont plavix, betablocker, statin Statin Type 2 diabetes with neuropathy sugars controlled continue levemir and lispro gabapentin Atrial fibrillation Rate controlled with metoprolol Cont Anticoagulation Eliquis Morbid Obesity with BMI of 41.8 complicating care BPH flomax Gout allopurinol Bilateral venous stasis has compression dressings on Psoriasis DVT prophylaxis On Eliquis Plan/VTE VTE Prophylaxis Ordered?: Yes VS, I&O, 24H, Fishbone Vital Signs/I&O Vital Signs Date Time Temp Pulse Resp B/P (MAP) Pulse Ox O2 Delivery O2 Flow Rate FiO2 12/31/18 06:47 72 148/70 12/31/18 06:00 98.7 17 98 I&O- Last 24 Hours up to 6 AM 12/31/18 06:00 Intake Total 1560 ml Output Total 1330 ml Balance 230 ml Laboratory Data 24H LABS Laboratory Tests 2 12/30/18 11:55: Bedside Glucose (Misc Panel) 72L 12/30/18 21:03: Bedside Glucose (Misc Panel) 145H BRENDA REYEZ MD Dec 31, 2018 08:45
[2018-12-31] MEDS: CLOPIDOGREL 75 MG TAB PO SCH (09:16)
[2018-12-31] MEDS: VITAMIN D 1,000 INTERNATIONAL UNITS TABLET PO SCH (09:16)
[2018-12-31] MEDS: LACTOBACILLUS ACIDOPHILUS CAP (BACID) PO SCH ×3 (09:16→21:26)
[2018-12-31] MEDS: **hydrALAZINE** 50 MG TAB PO SCH ×3 (09:17→21:27)
[2018-12-31] MEDS: LOSARTAN 50 MG TAB PO SCH (09:17)
[2018-12-31] MEDS: ACETAMINOPHEN TAB 650MG DOSE (2X325MG) PO SCH ×4 (09:18→21:27)
[2018-12-31] MEDS: APIXABAN 5 MG TAB (ELIQUIS) PO SCH ×2 (09:18→21:26)
[2018-12-31] MEDS: ALLOPURINOL 100 MG TAB PO SCH (09:18)
[2018-12-31] MEDS: TORSEMIDE 10 MG TABLET PO SCH ×2 (09:18→16:17)
[2018-12-31] MEDS: DOCUSATE SODIUM 100 MG CAP PO SCH ×2 (09:19→21:00)
[2018-12-31] MEDS: LEVEMIR (INSULIN DETEMIR) 1 UNITS/0.01ML SC SCH (09:20)
[2018-12-31] MEDS: EUCERIN 120GM CREAM TOP SCH (09:21)
[2018-12-31] MEDS: MULTIVITAMINS/MINERALS THERAP 1 TAB PO SCH (13:07)
[2018-12-31 14:00] VITALS: BP 158/72
[2018-12-31] MEDS: DAPTOmycin 1,000 MG in NS 50 ML IV SCH (17:51)
[2018-12-31 21:00] VITALS: BP 168/70
[2018-12-31] MEDS: SENNA 8.6 MG TAB (SENOKOT) PO SCH (21:00)
[2018-12-31] MEDS: GABAPENTIN 300 MG CAP PO SCH (21:26)
[2018-12-31] MEDS: TAMSULOSIN 0.4 MG CAP PO SCH (21:27)
[2018-12-31] MEDS: MIRTAZAPINE 15 MG TAB PO SCH (21:27)
[2019-01-01 06:00] VITALS: BP 178/80
[2019-01-01] MEDS: SODIUM CHLORIDE 0.9% INJ 10 ML SYR IV SCH ×3 (06:12→21:46)
[2019-01-01] MEDS: METOPROLOL TART 25 MG TABLET PO SCH ×3 (06:13→21:45)
[2019-01-01] MEDS: cloNIDine 0.1 MG TAB PO SCH ×2 (06:13→18:49)
[2019-01-01] MEDS: ALLOPURINOL 100 MG TAB PO SCH (08:52)
[2019-01-01] MEDS: ACETAMINOPHEN TAB 650MG DOSE (2X325MG) PO SCH ×4 (08:52→20:26)
[2019-01-01] MEDS: TORSEMIDE 10 MG TABLET PO SCH ×2 (08:52→16:23)
[2019-01-01] MEDS: DOCUSATE SODIUM 100 MG CAP PO SCH ×2 (08:53→20:25)
[2019-01-01] MEDS: LACTOBACILLUS ACIDOPHILUS CAP (BACID) PO SCH ×3 (08:53→20:27)
[2019-01-01] MEDS: LOSARTAN 50 MG TAB PO SCH (08:53)
[2019-01-01] MEDS: VITAMIN D 1,000 INTERNATIONAL UNITS TABLET PO SCH (08:53)
[2019-01-01] MEDS: CLOPIDOGREL 75 MG TAB PO SCH (08:54)
[2019-01-01] MEDS: APIXABAN 5 MG TAB (ELIQUIS) PO SCH ×2 (08:54→20:27)
[2019-01-01] MEDS: **hydrALAZINE** 50 MG TAB PO SCH ×3 (08:54→20:27)
[2019-01-01] MEDS: HumaLOG INSULIN (NovoLOG) PER UNIT SC SCH ×4 (08:55→20:28)
[2019-01-01] MEDS: LEVEMIR (INSULIN DETEMIR) 1 UNITS/0.01ML SC SCH (08:55)
[2019-01-01] MEDS: EUCERIN 120GM CREAM TOP SCH (08:55)
[2019-01-01] MEDS: MULTIVITAMINS/MINERALS THERAP 1 TAB PO SCH (12:07)
[2019-01-01 14:00] VITALS: BP 149/62
[2019-01-01] MEDS: DAPTOmycin 1,000 MG in NS 50 ML IV SCH (17:51)
[2019-01-01 20:00] VITALS: BP 160/70
[2019-01-01] MEDS: TAMSULOSIN 0.4 MG CAP PO SCH (20:26)
[2019-01-01] MEDS: MIRTAZAPINE 15 MG TAB PO SCH (20:26)
[2019-01-01] MEDS: GABAPENTIN 300 MG CAP PO SCH (20:27)
[2019-01-01] MEDS: SENNA 8.6 MG TAB (SENOKOT) PO SCH (20:27)
[2019-01-02] MEDS: METOPROLOL TART 25 MG TABLET PO SCH ×3 (06:05→20:16)
[2019-01-02] MEDS: SODIUM CHLORIDE 0.9% INJ 10 ML SYR IV SCH ×3 (06:06→20:17)
[2019-01-02] MEDS: cloNIDine 0.1 MG TAB PO SCH ×2 (06:44→18:39)
[2019-01-02] MEDS: VITAMIN D 1,000 INTERNATIONAL UNITS TABLET PO SCH (08:59)
[2019-01-02] MEDS: LACTOBACILLUS ACIDOPHILUS CAP (BACID) PO SCH ×3 (08:59→20:15)
[2019-01-02] MEDS: TORSEMIDE 10 MG TABLET PO SCH (08:59)
[2019-01-02] MEDS: CLOPIDOGREL 75 MG TAB PO SCH (09:00)
[2019-01-02] MEDS: ALLOPURINOL 100 MG TAB PO SCH (09:00)
[2019-01-02] MEDS: **hydrALAZINE** 50 MG TAB PO SCH ×3 (09:00→20:16)
[2019-01-02] MEDS: ACETAMINOPHEN TAB 650MG DOSE (2X325MG) PO SCH ×4 (09:00→20:14)
[2019-01-02] MEDS: DOCUSATE SODIUM 100 MG CAP PO SCH ×2 (09:00→20:15)
[2019-01-02] MEDS: LOSARTAN 50 MG TAB PO SCH (09:01)
[2019-01-02] MEDS: LEVEMIR (INSULIN DETEMIR) 1 UNITS/0.01ML SC SCH (09:01)
[2019-01-02] MEDS: HumaLOG INSULIN (NovoLOG) PER UNIT SC SCH ×4 (09:02→20:17)
[2019-01-02] MEDS: APIXABAN 5 MG TAB (ELIQUIS) PO SCH ×2 (09:02→20:17)
[2019-01-02] MEDS: EUCERIN 120GM CREAM TOP SCH (09:02)
--- NOTE | 2019-01-02 10:47 | IPNPDOC ---
Subjective Date Seen The patient was seen on 01/02/19. Subjective Chief Complaint/HPI 73M pmh Afib , CAD s/p [place] and stenting , CHF, CKD3, DM2, peripheral neuropathy, HTN, gout, anemia who presented to [facility] on 11/22/18 with right leg pain and found to have gangrene of his right great toe that he said began in September 2018.He was evaluated by vascular surgery and underwent a left femoral puncture under ultrasound guidance, aortogram with right leg runoff on 11/22/18. Following this procedure it was decided he needed a right femoral endarterectomy, right femoral popliteal bypass with a right first toe amputation which was performed 12/02/18 without initial complication. He was followed during his stay by renal for worsening creatinine levels, but dialysis was not deemed necessary. He developed purulence and drainage from his amputation site so his sutures were removed and wound cultures, followed by washout and debridement on 12/13/18 with removal of a portion of the 1st and 2nd metatarsal bones. . He was started on IV Vanco and Zosyn, but due to worsening renal function eventually was switched to Linezolid per ID recs for a MRSA wound culture and managed with a wound VAC. His bone culture was positive for osteomyelitis and positive for MRSA and enterococcus, so he was switched to IV Daptomycin for a total of 6 weeks through January 24, 2019. Objective Physical Examination General Exam: Positive: Alert, Cooperative, No Acute Distress Eye Exam: Positive: PERRLA, Conjunctiva & lids normal, EOMI; Negative: Sclera icteric ENT Exam: Positive: Atraumatic, Mucous membr. moist/pink, Pharynx Normal Neck Exam: Positive: Supple; Negative: JVD, thyromegaly Chest Exam: Positive: Wheezing (on deep expiration), Diminished Heart Exam: Positive: Rate Normal, Irregular Rhythm, Normal S1, Normal S2; Negative: Murmurs, Rubs Abdomen Exam: Positive: Normal bowel sounds, Soft; Negative: Tenderness, Hepatospenomegaly Extremity Exam: Positive: Edema, Swelling, Other (both legs with compression bandages on. ) Skin Exam: Positive: Lesion (psoriatic rashes) Assessment /Plan Plan/VTE VTE Prophylaxis Ordered?: Yes VS, I&O, 24H, Fishbone Vital Signs/I&O Vital Signs Date Time Temp Pulse Resp B/P (MAP) Pulse Ox O2 Delivery O2 Flow Rate FiO2 01/02/19 09:01 148/78 01/02/19 06:05 68 01/01/19 20:00 98.6 18 98 I&O- Last 24 Hours up to 6 AM 01/02/19 06:00 Intake Total 1020 ml Output Total 1075 ml Balance -55 ml Laboratory Data 24H LABS Laboratory Tests 2 01/01/19 11:41: Bedside Glucose (Misc Panel) 134H 01/01/19 16:46: Bedside Glucose (Misc Panel) 105 01/01/19 20:10: Bedside Glucose (Misc Panel) 195H 01/02/19 06:25: Bedside Glucose (Misc Panel) 103 RAEGAN PRIEST ANALYSIS INTERN Jan 02, 2019 10:47
[2019-01-02 12:00] VITALS: BP 135/60
[2019-01-02 12:08] LABS: BASO # 0.1 10^3/uL (0.0-0.2); BASO % 0.7 % (0.0-1.0); EOS # 0.6 10^3/uL (0.0-0.50); EOS % 6.9 % (0.0-3.0); HEMATOCRIT 35.1 % (42.0-52.0); HEMOGLOBIN 10.3 g/dl (13.5-17.5); LYMPH # 1.4 10^3/uL (1.5-4.5); LYMPH % 15.2 % (24.0-44.0); MEAN CORPUSCULAR HGB CONC 29.3 g/dl (32.0-36.5); MEAN CORPUSCULAR VOLUME 102.3 fl (80.0-96.0); MONO # 0.7 10^3/uL (0.0-0.8); NEUTROPHILS # 6.3 10^3/uL (1.8-7.7); NEUTROPHILS % 68.5 % (36.0-66.0); PLATELET COUNT, AUTOMATED 186 10^3/uL (150-450); RED BLOOD COUNT 3.43 10^6/uL (4.30-6.10); WHITE BLOOD COUNT 9.2 10^3/uL (4.0-10.0)
[2019-01-02 12:38] LABS: ERYTHROCYTE SEDIMENTATION RATE > 140 mm/hr (0-20)
[2019-01-02 12:42] LABS: C REACTIVE PROTEIN QUANTITATIV 2.38 MG/DL (0.00-0.30); CALCIUM LEVEL 8.2 MG/DL (8.8-10.2); CREATININE FOR GFR 2.19 MG/DL (0.70-1.30); GLOMERULAR FILTRATION RATE 31.6 (>42); POTASSIUM SERUM 3.9 MEQ/L (3.5-5.1)
[2019-01-02] MEDS: MULTIVITAMINS/MINERALS THERAP 1 TAB PO SCH (12:51)
--- NOTE | 2019-01-02 13:36 | IPNPDOC ---
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 He self limits his own fluid intake. He is eager to go home soon. REVIEW OF SYSTEMS: The following is a completed review of systems and has been reviewed. Review of systems otherwise unremarkable. PAIN: Patient self reports no pain EYES: no recent vision changes EARS, NOSE, & THROAT: denies dysphagia, rhinorrhea CARDIOVASCULAR: denies chest pain or palpitations PULMONARY: Negative. +orthopnea GASTROINTESTINAL:denies diarrhea/constipation GENITOURINARY: denies incontinence or dysuria MUSCULOSKELETAL: bilat LE weakness, right hip fracture NEUROLOGICAL: peripheral neuropathy HEMATOLOGICAL: +anemia SKIN: right foot ulcer and venous stasis changes in bilat calves PSYCHIATRIC: +depressed All other review of systems found to be negative. PHYSICAL EXAMINATION: VITAL SIGNS: Please see below. GENERAL: Pleasant and cooperative. No acute distress. HEENT: PERRL. Extraocular movements intact. Clear conjunctiva CARDIOVASCULAR: Irregular rate and rhythm. No murmurs, rubs, or gallops LUNGS: Clear to auscultation bilaterally. No wheezes. No rhonchi ABDOMEN: Soft, nontender, nondistended. Positive bowel sounds. Normal active bowel sounds NEUROLOGICAL: Alert and oriented times three. Cranial nerves II through XII grossly intact. Sensation absent in bilat feet and ankles in stock pattern EXTREMITIES: 5\5 strength bilateral upper extremities. 4\5 strength right hip flexion and knee extension 2/5 right ankle DF 4/5 strength in left lower extremity. bilat calf edema SKIN: right medial foot wound with granulation tissue, macerated, not malodorous right medial calf incision with sutures c/d/i bilateral psoriatic patches scattered over LE right groin sutures c/d/i medial right calf sutures c/d/i sacral erythema and moisture with psoriatic lesions ASSESSMENT:73-year-old M with past medical history of DM, CKD CAD, peripheral neuropathy who presents status post right toe amputation with wound vac. PLAN: 1. Rehab: PT, OT. 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 Neuro: peripheral neuropathy- c/u glycemic control 3. ID: MRSA and enterococcus osteomyelitis, c/u Daptomycin IV for total of 6 weeks- will consult ID to advise on switching to po and to follow as outpatient -c/u wound vac change MWF -monitor CRP/ESR 4. CArdio: pmh HTN and CHF- c/u BP meds and diuretics, medicine consulted to assist -c/u Cozaar to 100mg for elevated BPs and hydralazine -Afib on eliquis 5. Endo: pmh DM- c/u insulin and adjust prn 6. Vascular: pmh PVD s/p multiple interventions- has f/u with vascular surgeon 01/16/19 for suture removal 7. Pain:c/u gabapentin 8. Psych: c/u Remeron for depression and insomnia-stable 9. Skin: BID dressing changes to bilat calves, wound vac MWF -corn starch to sacrum and cover with optifoam 10. GI ppx: protonix 11. DVT ppx: on eliquis 12. 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 Dispo 01/05/19 to home, progressing towards goals Allergies Coded Allergies: amlodipine (Verified Allergy, Unknown, 12/23/18) atorvastatin (Verified Allergy, Unknown, HIVES, 12/23/18) rosuvastatin (Verified Allergy, Unknown, HIVES, 12/23/18) simvastatin (Verified Allergy, Unknown, HIVES, 12/23/18) spironolactone (Verified Allergy, Unknown, SWELLING, 12/23/18) Vital Signs Vital Signs Date Time Temp Pulse Resp B/P (MAP) Pulse Ox O2 Delivery O2 Flow Rate FiO2 01/02/19 12:00 98.5 52 20 135/60 (85) 99 Laboratory Data CBC/BMP Laboratory Tests 01/02/19 11:57 Red Blood Count 3.43 L, Mean Corpuscular Volume 102.3 H, Mean Corpuscular Hemoglobin 30.0, Mean Corpuscular Hemoglobin Concent 29.3 L, Red Cell Distribution Width 19.1 H, Neutrophils (%) (Auto) 68.5 H, Lymphocytes (%) (Auto) 15.2 L, Monocytes (%) (Auto) 8.0 H, Eosinophils (%) (Auto) 6.9 H, Basophils (%) (Auto) 0.7, Neutrophils # (Auto) 6.3, Lymphocytes # (Auto) 1.4 L, Monocytes # (Auto) 0.7, Eosinophils # (Auto) 0.6 H, Basophils # (Auto) 0.1, Calcium Level 8.2 L Labs 24H Laboratory Tests 2 01/01/19 16:46: Bedside Glucose (Misc Panel) 105 01/01/19 20:10: Bedside Glucose (Misc Panel) 195H 01/02/19 06:25: Bedside Glucose (Misc Panel) 103 01/02/19 11:48: Bedside Glucose (Misc Panel) 69L 01/02/19 11:57: Immature Granulocyte % (Auto) 0.7, White Blood Count 9.2, Red Blood Count 3.43L, Hemoglobin 10.3L, Hematocrit 35.1L, Mean Corpuscular Volume 102.3H, Mean Corpusc ular Hemoglobin 30.0, Mean Corpuscular Hemoglobin Concent 29.3L, Red Cell Distribution Width 19.1H, Platelet Count 186, Neutrophils (%) (Auto) 68.5H, Lymphocytes (%) (Auto) 15.2L, Monocytes (%) (Auto) 8.0H, Eosinophils (%) (Auto) 6.9H, Basophils (%) (Auto) 0.7, Neutrophils # (Auto) 6.3, Lymphocytes # (Auto) 1.4L, Monocytes # (Auto) 0.7, Eosinophils # (Auto) 0.6H, Basophils # (Auto) 0.1, Nucleated Red Blood Cells % (auto) 0.0, Erythrocyte Sedimentation Rate > 140H, Anion Gap 6L, Glomerular Filtration Rate 31.6L, Blood Urea Nitrogen 53H, Creatinine 2.19H, Sodium Level 145, Potassium Level 3.9, Chloride Level 111H, Carbon Dioxide Level 28, Calcium Level 8.2L, C-Reactive Protein, Quantitative 2. 38H Current Medications Current Medications Current Medications Acetaminophen (Tylenol Tab) 650 mg QID PO Last administered on 01/02/19at 12:51; Start 12/27/18 at 13:00 Acetaminophen (Tylenol Tab) 1,000 mg TID PO Last administered on 12/26/18at 17: 15; Start 12/23/18 at 16:00; Stop 12/27/18 at 13:57; Status DC Al Hydrox/Mg Hydrox/Simethicone (Mylanta) 30 ml Q4HP PRN PO DYSPEPSIA; Start 12/23/18 at 14:30 Albuterol Sulfate (Proventil, Ventolin Hfa) 2 puff Q4HP PRN INH SHORTNESS OF BREATH; Start 12/23/18 at 14:30 Allopurinol (Zyloprim) 100 mg DAILY PO Last administered on 01/02/19at 09:00; Start 12/24/18 at 09:00 Apixaban (Eliquis) 5 mg BID PO Last administered on 01/02/19 09:02; Start 12/23/18 at 21:00 Bisacodyl (Dulcolax Tab) 5 mg DAILYPRN PRN PO CONSTIPATION; Start 12/23/18 at 14:30 Calcium Carbonate (Tums) 500 mg TID PRN PO INDIGESTION; Start 12/23/18 at 14:30 Carvedilol (COReg) 25 mg BID PO Last administered on 12/26/18at 09:41; Start 12/23/18 at 18:00; Stop 12/27/18 at 13:57; Status DC Clonidine HCl (Catapres) 0.1 mg BID PO ; Start 12/29/18 at 22:00; Stop 12/29/18 at 22:00; Status DC Clonidine HCl (Catapres) 0.1 mg Q12H PO Last administered on 01/01/19at 18:49; Start 12/29/18 at 19:00 Clopidogrel Bisulfate (PLAVix) 75 mg DAILY PO Last administered on 01/02/19at 09:00; Start 12/24/18 at 09:00 Daptomycin 1000 mg/Sodium Chloride 70 ml @ 120 mls/hr Q24H IV Last administered on 01/01/19 17:51; Start 12/24/18 at 18:00 Daptomycin 1050 mg/Sodium Chloride 71 ml @ 71 mls/hr Q24H IV Last administered on 12/23/18at 20:42; Start 12/23/18 at 18:30; Stop 12/24/18 at 11:41; Status DC Dextrose (Dextrose 50%) 25 ml ASDIRECTED PRN IV SEE LABEL COMMENTS; Start 12/23/18 at 14:30 Docusate Sodium (Colace) 100 mg BID PO Last administered on 01/02/19 09:00; Start 12/23/18 at 21:00 Gabapentin (Neurontin) 300 mg QHS PO Last administered on 01/01/19at 20:27; Start 12/23/18 at 21:00 Glucagon (Glucagon) 1 mg ASDIRECTED PRN SC SEE LABEL COMMENTS; Start 12/23/18 at 14:30 Glucose (Glucose) 16 GM ASDIRECTED PRN PO SEE LABEL COMMENTS; Start 12/23/18 at 14:30 Heparin Sodium (Heparin Lock Flush 10units/ml) 10 units ASDIRECTED PRN IV SEE LABEL COMMENTS Last administered on 12/29/18at 17:16; Start 12/24/18 at 00:30 Heparin Sodium (Heparin Lock Flush 10units/ml) 10 units HLF IV Last administered on 01/02/19at 06:05; Start 12/24/18 at 06:00 Home Med (Med Rec Complete!) ASDIRECTED XX ; Start 12/23/18 at 16:00; Stop 12/23/18 at 16:00; Status DC Hydralazine HCl (Apresoline) 25 mg BID PO Last administered on 12/24/18at 09:02; Start 12/23/18 at 18:41; Stop 12/24/18 at 11:43; Status DC Hydralazine HCl (Apresoline) 25 mg TID PO Last administered on 12/27/18at 21:48; Start 12/24/18 at 16:00; Stop 12/28/18 at 07:27; Status DC Hydralazine HCl (Apresoline) 50 mg BID PO ; Start 12/23/18 at 18:15; Stop 12/23/18 at 18:38; Status DC Hydralazine HCl (Apresoline) 50 mg TID PO Last administered on 12/28/18 20:27; Start 12/28/18 at 09:00; Stop 12/29/18 at 06:39; Status DC Hydralazine HCl (Apresoline) 100 mg TID PO Last administered on 01/02/19at 09:00; Start 12/29/18 at 09:00 Insulin Detemir (Levemir Insulin) 10 units DAILY SC Last administered on 01/02/19 09:01; Start 12/24/18 at 09:00 Insulin Human Lispro (HumaLOG INSULIN) SEE PROTOCOL TABLE AC SC Last administered on 01/02/19 09:02; Start 12/23/18 at 17:30 Insulin Human Lispro (HumaLOG INSULIN) SEE PROTOCOL TABLE QHS SC ; Start 12/23/18 at 21:00 Lactobacillus Acidophilus (Bacid) 1 ea TID PO Last administered on 01/02/19 08:59; Start 12/23/18 at 21:00 Losartan Potassium (Cozaar) 50 mg QAM PO Last administered on 12/26/18 09:40; Start 12/24/18 at 09:00; Stop 12/26/18 at 10:43; Status DC Losartan Potassium (Cozaar) 100 mg QAM PO Last administered on 01/02/19 09:01; Start 12/27/18 at 09:00 Magnesium Hydroxide (Milk Of Magnesia) 30 ml DAILYPRN PRN PO CONSTIPATION; Start 12/23/18 at 14:30 Metoprolol Tartrate (Lopressor) 25 mg Q8H PO Last administered on 01/02/19 06:05; Start 12/27/18 at 14:00 Mineral Oil/White Petrolatum (Eucerin) apply to lower legs then w... DAILY TOP Last administered on 01/02/19 09:02; Start 12/24/18 at 09:00 Mirtazapine (Remeron) 15 mg QHS PO Last administered on 01/01/19 20:26; Start 12/23/18 at 21:00 Miscellaneous (Unresolved Clarification Entry) SEE LABEL COMMENTS DAILY XX ; Start 12/29/18 at 09:00; Status Cancel Miscellaneous (Unresolved Clarification Entry) SEE LABEL COMMENTS DAILY XX ; Start 12/30/18 at 09:00; Status UNV Multivitamins (Theragram-M) 1 tab DAILY@1200 PO Last administered on 01/02/19 12:51; Start 12/24/18 at 12:00 Senna (Senokot) 1 tab QHS PO Last administered on 12/29/18 21:53; Start 12/23/18 at 21:00 Sodium Chloride 500 ml @ 60 mls/hr Q8H20M IV Last administered on 12/28/18 13:40; Start 12/28/18 at 11:45; Stop 12/28/18 at 20:04; Status DC Sodium Chloride (Saline Lock Flush) 10 ml ASDIRECTED PRN IV SEE LABEL COMMENTS Last administered on 12/29/18 17:17; Start 12/24/18 at 00:30 Sodium Chloride (Saline Lock Flush) 10 ml SLF IV Last administered on 01/02/19 06:06; Start 12/24/18 at 06:00 Tamsulosin HCl (Flomax) 0.4 mg QHS PO Last administered on 01/01/19 20:26; Start 12/23/18 at 21:00 Torsemide (Demadex) 10 mg BID@,17 PO Last administered on 01/02/19 08:59; Start 12/26/18 at 17:00; Stop 01/02/19 at 10:51; Status DC Torsemide (Demadex) 20 mg BID@09,17 PO Last administered on 12/26/18at 05:57; Start 12/23/18 at 17:00; Stop 12/26/18 at 12:48; Status DC Torsemide (Demadex) 20 mg BID@09,17 PO ; Start 01/02/19 at 17:00 Vitamin D (Vitamin D) 2,000 units DAILY PO Last administered on 01/02/19 08:59; Start 12/24/18 at 09:00 ROSSANA SAENZ MD Jan 02, 2019 13:36
[2019-01-02 14:00] VITALS: BP 145/61
[2019-01-02] MEDS: TORSEMIDE 20 MG TAB PO SCH (17:40)
[2019-01-02] MEDS: DAPTOmycin 1,000 MG in NS 50 ML IV SCH (17:41)
[2019-01-02 20:00] VITALS: BP 160/70
[2019-01-02] MEDS: GABAPENTIN 300 MG CAP PO SCH (20:14)
[2019-01-02] MEDS: SENNA 8.6 MG TAB (SENOKOT) PO SCH (20:15)
[2019-01-02] MEDS: TAMSULOSIN 0.4 MG CAP PO SCH (20:16)
[2019-01-02] MEDS: MIRTAZAPINE 15 MG TAB PO SCH (20:17)
--- NOTE | 2019-01-02 23:09 | CR.PDOC ---
General Date of Consultation: Jan 02, 2019 Consultation HISTORY OF PRESENT ILLNESS: Asad is a 73 yo male with complicated medical history. Apparently he was hospitalized at [facility] in late October 2018 for gangrene of right lower extremity great toe, that began around September 2018. During his stay he underwent aortogram with right leg runoff and right femoral endarterectomy with right femoral popliteal bypass and right first toe amput ation on 12.02.2018. He unfortunately developed purulent discharge from the wound site and cultures along with debridement were performed with removal of the first and second metatarsal bones, bone cultures were positive for MRSA and enterococcus, osteo was diagnosed. He was initially started on IV Vancomycin and Zosyn but this was discontinued due to worsening kidney function, witched to Linezolid with wound VAC. Due to the diagnosis of osteo. he was started on IV Daptomycin. On examination today, he states his legs do feel a bit heavy but he really doesn't have a lot of feeling in them due to neuropathy, he denies cp, palpitations, sob or cough, no n/v or diarrhea. ALLERGIES: Please see below. HOME MEDICATIONS: Please see below. PAST MEDICAL HISTORY: a.fib, past history of ME, CAD s/p stent placement, CHF, Dm2, peripheral neuropathy, HTN, gout and anemia PAST SURGICAL HISTORY: cholecystectomy, right hip fracture and cataracts FAMILY HISTORY: cardiac disease SOCIAL HISTORY: former smoker, no ETOH nor drug use REVIEW OF SYSTEMS: 12 point ROS reviewed with pt and negative except for pertinent positives in HPI Physical Examination This is a pleasant 73 yo male sitting in his chair watching television, there is no wheezing, rales or rhonchi on lung exam, no murmurs or heart palpitations appreciated, nabsx4, no hepatosplenomegaly nor masses appreciated, obese abdomen however, no distension, rebound ridgity or guarding, there is b//l edema at least +1 to level above knees b/l, there are two spots of stiches in right LE from bypass procedures that are clean, dry and intact, wound vac in place over area of right great toe, chronic skin changes from venous stasis, cannot appreciate great pulses b/l LE, no mottling however nor cyanosis appreciated. LABORATORY DATA: Please see below. ASSESSMENT/PLAN: 1. Osteomyelitis MRSA Efecalis involving Rt foot 1-2nd met debridement and amputaton of 1st toe s/p wound vac placement -YOLANDA records reviewed personally. We agree that continuing for 6 wks of IV Daptomycin is appropriate will try to find ID consult by Dr Tadeo who had also discussed PO linezolid, that could be an option if patients not bacteremic . Cannot find where YOLANDA performed ECHO in his medical records, we can try and obtain these tomorrow. he all ready has a double lumen port in place, his will need IV teaching to administer the IV abx at home, we can arrange this before the pt is discharged. Vital Signs/I&O Vital Signs Date Time Temp Pulse Resp B/P (MAP) Pulse Ox O2 Delivery O2 Flow Rate FiO2 01/02/19 20:16 63 160/70 01/02/19 20:00 98.7 18 97 I&O- Last 24 Hours up to 6 AM 01/02/19 06:00 Intake Total 1020 ml Output Total 1075 ml Balance -55 ml Laboratory Data Labs 24H Laboratory Tests 2 01/02/19 06:25: Bedside Glucose (Misc Panel) 103 01/02/19 11:48: Bedside Glucose (Misc Panel) 69L 01/02/19 11:57: Immature Granulocyte % (Auto) 0.7, White Blood Count 9.2, Red Blood Count 3.43L, Hemoglobin 10.3L, Hematocrit 35.1L, Mean Corpuscular Volume 102.3H, Mean Corpuscular Hemoglobin 30.0, Mean Corpuscular Hemoglobin Concent 29.3L, Red Cell Distribution Width 19.1H, Platelet Count 186, Neutrophils (%) (Auto) 68.5H, Lymphocytes (%) (Auto) 15.2L, Monocytes (%) (Auto) 8.0H, Eosinophils (%) (Auto) 6.9H, Basophils (%) (Auto) 0.7, Neutrophils # (Auto) 6.3, Lymphocytes # (Auto) 1.4L, Monocytes # (Auto) 0.7, Eosinophils # (Auto) 0.6H, Basophils # (Auto) 0.1, Nucleated Red Blood Cells % (auto) 0.0, Erythrocyte Sedimentation Rate > 140H, Anion Gap 6L, Glomerular Filtration Rate 31.6L, Blood Urea Nitrogen 53H, Creatinine 2.19H, Sodium Level 145, Potassium Level 3.9, Chloride Level 111H, Carbon Dioxide Level 28, Calcium Level 8.2L, C-Reactive Protein, Quantitative 2.38H 01/02/19 16:47: Bedside Glucose (Misc Panel) 123H 01/02/19 19:46: Bedside Glucose (Misc Panel) 186H CBC/BMP Laboratory Tests 01/02/19 11:57 Red Blood Count 3.43 L, Mean Corpuscular Volume 102.3 H, Mean Corpuscular Hemoglobin 30.0, Mean Corpuscular Hemoglobin Concent 29.3 L, Red Cell Distribution Width 19.1 H, Neutrophils (%) (Auto) 68.5 H, Lymphocytes (%) (Auto) 15.2 L, Monocytes (%) (Auto) 8.0 H, Eosinophils (%) (Auto) 6.9 H, Basophils (%) (Auto) 0.7, Neutrophils # (Auto) 6.3, Lymphocytes # (Auto) 1.4 L, Monocytes # (Auto) 0.7, Eosinophils # (Auto) 0.6 H, Basophils # (Auto) 0.1, Calcium Level 8.2 L Allergies Coded Allergies: amlodipine (Verified Allergy, Unknown, 12/23/18) atorvastatin (Verified Allergy, Unknown, HIVES, 12/23/18) rosuvastatin (Verified Allergy, Unknown, HIVES, 12/23/18) simvastatin (Verified Allergy, Unknown, HIVES, 12/23/18) spironolactone (Verified Allergy, Unknown, SWELLING, 12/23/18) Home Medications Scheduled Allopurinol (Allopurinol) 100 Mg Tablet, 100 MG PO DAILY, (Reported) Apixaban (Eliquis) 5 Mg Tablet, 5 MG PO BID, (Reported) Carvedilol (Carvedilol) 25 Mg Tablet, 25 MG PO BID, (Reported) Cholecalciferol (Vitamin D3) (Vitamin D3) 1,000 Unit Tablet, 1,000 UNIT PO KYLE Y, (Reported) Clopidogrel Bisulfate (Clopidogrel) 75 Mg Tablet, 75 MG PO DAILY, (Reported) Docusate Sodium (Docusate Sodium) 100 Mg Capsule, 100 MG PO BID, (Reported) Gabapentin (Gabapentin) 100 Mg Capsule, 300 MG PO QHS, (Reported) Hydralazine HCl (Hydralazine HCl) 25 Mg Tablet, 25 MG PO BID, (Reported) (SBP>170) Insulin Aspart (Novolog) 100 Unit/1 Ml Cartridge, 0 SC ACHS, (Reported) Insulin Glargine,Hum.rec.anlog (Lantus Solostar) 100 Unit/1 Ml Insuln.pen, 16 UNITS SC DAILY, (Reported) L.acidoph/L.bulg/B.bif/S.therm (Bacid Caplet) 1 Each Tablet, 1 TAB PO DAILY, (Reported) Multivitamin (Multivitamins) 1 Each Tablet, 1 TAB PO DAILY, (Reported) Potassium Chloride (Potassium Chloride) 10 Meq Tablet.er, 20 MEQ PO TID, (Reported) VERIFIED DOSE WITH [facility] Tamsulosin HCl (Flomax) 0.4 Mg Capsule, 0.4 MG PO QHS, (Reported) Torsemide (Torsemide) 20 Mg Tablet, 20 MG PO BID, (Reported) Scheduled PRN Acetaminophen (Tylenol) 325 Mg Tablet, 650 MG PO Q4H PRN for PAIN, (Reported) Albuterol Sulfate (Proair Hfa) 8.5 Gm Hfa.aer.ad, 2 PUFF INH Q4H PRN for SHORTNESS OF BREATH, (Reported) Calcium Carbonate (Calcium) 500 Mg Tablet, 500 MG PO TID PRN for HEARTBURN, (Reported) Polyethylene Glycol 3350 (Miralax) 119 Gm Powder, 17 GM PO DAILY PRN for CONSTIPATION, (Reported) GME ATTESTATION GME ATTESTATION My faculty preceptor for this patient encounter was physically present during the encounter and was fully available. All aspects of the patient interview, examination, medical decision making process, and medical care plan development were reviewed and approved by the faculty preceptor. The faculty preceptor is aware and concurs with the plan as stated in the body of this note and will attest to such by his/her cosignature. ANTHONY BENNETT DO Jan 02, 2019 23:09 Mindy Baca MD Jan 04, 2019 22:33
[2019-01-03 05:37] VITALS: BP 190/80
[2019-01-03] MEDS: METOPROLOL TART 25 MG TABLET PO SCH ×2 (05:38→14:34)
[2019-01-03] MEDS: SODIUM CHLORIDE 0.9% INJ 10 ML SYR IV SCH ×3 (05:38→21:09)
[2019-01-03 06:26] VITALS: BP 172/80
[2019-01-03] MEDS: cloNIDine 0.1 MG TAB PO SCH ×2 (06:50→19:22)
[2019-01-03 07:43] VITALS: BP 152/62
[2019-01-03] MEDS: APIXABAN 5 MG TAB (ELIQUIS) PO SCH ×2 (08:16→21:07)
[2019-01-03] MEDS: DOCUSATE SODIUM 100 MG CAP PO SCH ×2 (08:16→21:07)
[2019-01-03] MEDS: TORSEMIDE 20 MG TAB PO SCH (08:16)
[2019-01-03] MEDS: ALLOPURINOL 100 MG TAB PO SCH (08:16)
[2019-01-03] MEDS: CLOPIDOGREL 75 MG TAB PO SCH (08:16)
[2019-01-03] MEDS: LACTOBACILLUS ACIDOPHILUS CAP (BACID) PO SCH ×3 (08:16→21:07)
[2019-01-03] MEDS: LOSARTAN 50 MG TAB PO SCH (08:17)
[2019-01-03] MEDS: VITAMIN D 1,000 INTERNATIONAL UNITS TABLET PO SCH (08:17)
[2019-01-03] MEDS: **hydrALAZINE** 50 MG TAB PO SCH ×3 (08:17→21:09)
[2019-01-03] MEDS: POTASSIUM CHLORIDE 10 MEQ SR TABLET PO SCH ×2 (08:17→21:07)
[2019-01-03] MEDS: LEVEMIR (INSULIN DETEMIR) 1 UNITS/0.01ML SC SCH (08:18)
[2019-01-03] MEDS: ACETAMINOPHEN TAB 650MG DOSE (2X325MG) PO SCH ×4 (08:18→21:06)
[2019-01-03] MEDS: HumaLOG INSULIN (NovoLOG) PER UNIT SC SCH ×4 (08:19→20:46)
[2019-01-03 08:53] LABS: ALBUMIN 2.5 GM/DL (3.2-5.2); CALCIUM LEVEL 8.1 MG/DL (8.8-10.2); CREATININE FOR GFR 2.26 MG/DL (0.70-1.30); GLOMERULAR FILTRATION RATE 30.5 (>42); PERCENT SATURATION 15.7 % (19.7-50.0); PHOSPHORUS LEVEL 3.7 MG/DL (2.5-4.9); POTASSIUM SERUM 4.1 MEQ/L (3.5-5.1); URIC ACID 7.8 MG/DL (3.5-7.2)
[2019-01-03 09:00] LABS: PTH INTACT 64.6 PG/ML (18.5-88.0)
[2019-01-03] MEDS: EUCERIN 120GM CREAM TOP SCH (09:00)
--- NOTE | 2019-01-03 10:01 | CR ---
DATE OF CONSULTATION: 01/02/2019 REASON FOR CONSULTATION: Is acute renal failure, chronic kidney disease, and uncontrolled hypertension. HISTORY OF PRESENT ILLNESS: Mr. Bradley is a 73-year-old gentleman with multiple chronic medical problems including history of diabetes, hypertension, stage III of chronic kidney disease at baseline, congestive heart failure, coronary artery disease with prior myocardial infarction (WA), status post angioplasty with stents, gout, and atrial fibrillation. He was admitted to [facility] with gangrene of his right big toe and infection. He underwent angioplasty and amputation of his right big toe. He is now admitted to acute rehab unit at [facility]. Patient has developed generalized lower extremity edema and uncontrolled hypertension. In addition, his kidney function is worsening due to which nephrology consultation was requested. PAST MEDICAL AND SURGICAL HISTORY: 1. History of type 2 diabetes. 2. Hypertension. 3. Congestive heart failure. 4. Chronic kidney disease, stage III. 5. Coronary artery disease, status post prior [place], angioplasty and stents. 6. History of atrial fibrillation. 7. History of gout. 8. Anemia. 9. Peripheral vascular disease. 10. History of psoriasis. 11. History of methicillin-resistant Staphylococcus aureus (MRSA) infection in right foot. 12. History of chronic degenerative arthritis. 13. Atrial fibrillation requiring anticoagulation. MEDICATIONS: Current medications in the hospital include: - daptomycin 1000 mg every 24 hours - Tylenol as needed - Proventil inhaler 2 puffs as needed for shortness of breath - allopurinol 100 mg daily - Mylanta 30 mL as needed - Eliquis 5 mg twice a day - Dulcolax tablets 5 mg as needed for constipation - Tums 500 mg three times a day - clonidine 0.1 mg every 12 hours - Plavix 75 mg daily - Colace 100 mg twice a day - gabapentin 300 mg at bedtime - hydralazine 100 mg three times a day - Levemir insulin 10 units daily - losartan 100 mg daily - metoprolol 25 mg every 8 hours - Milk of Magnesia 30 mL daily as needed for constipation - Remeron 15 mg at bedtime - multivitamin 1 tablet daily - Senokot 1 tablet at bedtime - torsemide 20 mg twice a day - vitamin D 2000 units daily ALLERGIES: The patient has INTOLERANCE to AMLODIPINE, ATORVASTATIN, SIMVASTATIN, and SPIRONOLACTONE. PERSONAL AND SOCIAL HISTORY: Patient is a former smoker and denies any alcohol or drug use. He is . FAMILY HISTORY: Significant for cardiac problems and cancer. There is no history of end-stage renal disease in his family. REVIEW OF SYSTEMS: The patient has been weak following this recent admission and is now admitted to acute rehab unit. He has generalized lower extremity edema and both legs are wrapped in Horace bandages. He is being treated for MRSA infection in his right foot wound. Denies any fever or chills. Ears, nose and throat are unremarkable. Cardiovascular system is significant for congestive heart failure, uncontrolled hypertension, and peripheral edema. Respiratory system negative for hemoptysis or pleuritic type of chest pain. Gastrointestinal (GI) system is negative for vomiting or diarrhea. Genitourinary () system is negative for dysuria or hematuria. Endocrine system is significant for type 2 diabetes and secondary hyperparathyroidism. Psychosocial system is negative for depression/anxiety. Neurological system is negative for seizures or stroke, but does have peripheral neuropathy. Skin is significant for psoriasis and chronic stasis changes on lower extremities. Both legs are wrapped in Horace bandage. Hematological system is significant for anemia. PHYSICAL EXAMINATION: The patient is awake and alert and laying in the recliner chair at the time of my visit. Temperature 98 degrees Fahrenheit, heart rate 68 per minute, and respiratory rate 18 per minute. Blood pressure about 145/70 mmHg and oxygen saturation 96%. Head is atraumatic. Neck is supple and jugular venous distention (JVD) is elevated at least 10 cm above sternal angle. There is no oral thrush or ulcers. Nose and throat are unremarkable. Heart exam reveals irregular rhythm and no pericardial friction rub. Lungs with diminished breath sounds and bibasilar rales. Abdomen: Obese, soft, and nontender. Bowel sounds present. Extremities: Without any cyanosis or clubbing. Both legs are wrapped in Horace bandage. There is psoriasis rash on his skin. He does have edema on his thighs. Right foot is wrapped in dressing and big toe is surgically absent. Neurologically, he is awake, alert and oriented times three. LABORATORY DATA: WBC count is 9.2, hemoglobin 10.3, and hematocrit 35.1. Platelets 186. Sodium is 145, potassium 3.9, CO2 28, BUN 53, and creatinine 2.19. On 12/27/2009, his BUN was 41 and creatinine 1.74. PROBLEMS: 1. Acute kidney injury superimposed on chronic kidney disease. Patient did have acute renal failure while he was at [facility]. However, then his kidney function improved with IV fluids. Probably he has been volume overloaded and hemodiluted. Now, his diuretic had to be increased due to significant peripheral edema and kidney function is worsening. We will get a renal ultrasound to rule out any possibility of obstruction. 2. Congestive heart failure. He does have history of congestive heart failure and significant chronic kidney disease. At present, he is grossly volume overloaded and I agree with increased dose of torsemide 20 mg twice a day. Patient should be on fluid restriction of 1500 mL per day and try to keep him in a negative fluid balance of at least 1 liter per day. We will add potassium chloride 10 mEq twice a day with increased diuretic dose to prevent hypokalemia. 3. Anemia. He does have anemia, which is probably related to chronic kidney disease. However, iron deficiency should be ruled out. At this point, I will hold off on the use of erythropoietin due to volume overload and risk for worsening hypertension. 4. Uncontrolled hypertension. His blood pressure control is suboptimal and probably this is related to worsening kidney function and volume overload. We will diurese him and correct his volume status first and then adjust medications further. He is already on multiple antihypertensive meds including beta yuko, with a dilator, angiotensin receptor yuko and diuretic. At this point, his volume status need to be optimized first and then we will adjust other meds as needed. Thank you for involving me in the care of Mr. Bradley. I will follow him along with you.
[2019-01-03] MEDS: MULTIVITAMINS/MINERALS THERAP 1 TAB PO SCH (12:00)
[2019-01-03 14:00] VITALS: BP 162/70
--- NOTE | 2019-01-03 15:47 | IPNPDOC ---
Text Note Date of Service The patient was seen on 01/03/19. NOTE Patient is a 73-year-old male, medical history significant for type 2 diabetes m israalli, who developed right great toe gangrene and was found to have peripheral arterial disease. He is warned progressed to osteomyelitis requiring right first toe amputation and also subsequent amputation of first and second metatarsal bones. He is currently on daptomycin for a total of 6 weeks through 01/24/2019. He was discharged to rehabilitation unit for mobilization and strengthening while on wound VAC and continued antibiotic therapy. Subjective: He complains of intermittent mild shortness of breath. He denies chest pain or any other symptoms. Objective: GENERAL: NAD SKIN : Warm, psoriatic lesions to discrete skin areas. wound vac to right foot HEENT: Atraumatic, normocephalic, PERRL, moist mucous membrane CARDIOVASCULAR: irregular rate and rhythm, no JVD, BLE Yvette boot RESP: expiratory wheezes in post lung wilson, no accessory muscle use noted ABDOMEN: BS+ non distended non tender MS: no joint deformities NEURO: Alert and oriented x 3, CN2-12 grossly intact PSYCH: no anxiety or agitation, appropriate mood and affect. ASSESSMENT/PLAN Hypertension -uncontrolled -continue losartan, torsemide hydralazine, clonidine -change to coreg CKD stage 3 -nephrology on board, managing -avoid hypertension -avoid nephrotoxic medications -continue to monitor intermittently Dyspnea -Scheduled and as needed bronchodilator therapy -Intermittent monitoring of oxygen saturation to keep greater than 92% PAD -s/p right femoral endarterectomy, right femoral popliteal bypass at [facility] in October 2018 -with non healing ulcer, gangrene and osteomyelitis of right toe -S/P disarticulation with plan to treat with Daptomycin till January 24 -Mobilization post amputation by primary team Atrial Fibrillation -continue betablocker therapy -anticoagulation with Eliquis Type 2 diabetes mellitus -Caloric controlled diet -Finger stick checks prior to meals and at bedtime -Coverage with insulin per sliding scale protocol Morbid Obesity with BMI of 41.8 complicating care DVT prophylaxis -Fully anticoagulated VS,Fishbone, I+O VS, Fishbone, I+O Laboratory Tests 01/03/19 08:06 Anion Gap -7 L, Uric Acid 7.8 H Vital Signs Date Time Temp Pulse Resp B/P (MAP) Pulse Ox O2 Delivery O2 Flow Rate FiO2 01/03/19 14:34 70 162/70 01/03/19 14:00 98.4 20 98 I&O- Last 24 Hours up to 6 AM 01/03/19 06:00 Intake Total 960 ml Output Total 1620 ml Balance -660 ml RAEGAN PRIEST [facility] Jan 03, 2019 15:47
[2019-01-03] MEDS: IPRATROPIUM 0.5MG/ALBUTEROL 2.5MG INH SOL UD 3ML (DUONEB)(J7620) NEB SCH (15:49)
--- NOTE | 2019-01-03 15:52 | IPNPDOC ---
PM&R Progress Note DATE OF SERVICE: Jan 03, 2019 Library Circulation Assistant Progress Note Subjective: Patient reporting he feels well overall is eager to have room privileges, but understands he needs to exercise more caution with the wound vac tubing. REVIEW OF SYSTEMS: The following is a completed review of systems and has been reviewed. Review of systems otherwise unremarkable. PAIN: Patient self reports no pain EYES: no recent vision changes EARS, NOSE, & THROAT: denies dysphagia, rhinorrhea CARDIOVASCULAR: denies chest pain or palpitations PULMONARY: Negative. +orthopnea GASTROINTESTINAL:denies diarrhea/constipation GENITOURINARY: denies incontinence or dysuria MUSCULOSKELETAL: bilat LE weakness, right hip fracture NEUROLOGICAL: peripheral neuropathy HEMATOLOGICAL: +anemia SKIN: right foot ulcer and venous stasis changes in bilat calves PSYCHIATRIC: +depressed All other review of systems found to be negative. PHYSICAL EXAMINATION: VITAL SIGNS: Please see below. GENERAL: Pleasant and cooperative. No acute distress. HEENT: PERRL. Extraocular movements intact. Clear conjunctiva CARDIOVASCULAR: Irregular rate and rhythm. No murmurs, rubs, or gallops LUNGS: Clear to auscultation bilaterally. No wheezes. No rhonchi ABDOMEN: Soft, nontender, nondistended. Positive bowel sounds. Normal active bowel sounds NEUROLOGICAL: Alert and oriented times three. Cranial nerves II through XII grossly intact. Sensation absent in bilat feet and ankles in stock pattern EXTREMITIES: 5\5 strength bilateral upper extremities. 4\5 strength right hip flexion and knee extension 2/5 right ankle DF 4/5 strength in left lower extremity. bilat calf edema SKIN: right medial foot wound with granulation tissue, macerated, not malodorous right medial calf incision with sutures c/d/i bilateral psoriatic patches scattered over LE right groin sutures c/d/i medial right calf sutures c/d/i sacral erythema and moisture with psoriatic lesions ASSESSMENT:73-year-old M with past medical history of DM, CKD CAD, peripheral neuropathy who presents status post right toe amputation with wound vac. PLAN: 1. Rehab: PT, OT. assess for DMEs, ambulating with RW, nearly Mod-I for room mobility -goal to strengthen core, LLE for optimal ambulation short distances 30-50 feet max with forefoot off-dip stand loader (PWB for RLE) -strengthen upper extremities 2. Neuro: peripheral neuropathy- c/u glycemic control 3. ID: MRSA and enterococcus osteomyelitis, s/p Daptomycin IV will switch to po Linezolid for 6 weeks total antibiotics, Dr. Phuong heath appreciated -c/u wound vac change MWF -monitor CRP/ESR 4. CArdio: pmh HTN and CHF- c/u BP meds and diuretics, medicine consulted to assist -c/u Cozaar to 100mg for elevated BPs, clonidine, and hydralazine -Afib on eliquis 5. Endo: pmh DM- c/u insulin and adjust prn 6. Vascular: pmh PVD s/p multiple interventions- has f/u with vascular surgeon 01/16/19 for suture removal 7. Pain:c/u gabapentin 8. Psych: c/u Remeron for depression and insomnia-stable 9. Skin: BID dressing changes to bilat calves, wound vac MWF -corn starch to sacrum and cover with optifoam 10. GI ppx: protonix 11. DVT ppx: on eliquis 12. Renal: recent MARLEN, will monitor, needs f/u with nephrology on discharge- Dr. Maxwell's recs appreciated, c/u Torsemide 30mg BID, potassium supplementation, and fluid restrict to 1500cc 13. Dispo 01/06/19 to home, progressing towards goals Allergies Coded Allergies: amlodipine (Verified Allergy, Unknown, 12/23/18) atorvastatin (Verified Allergy, Unknown, HIVES, 12/23/18) rosuvastatin (Verified Allergy, Unknown, HIVES, 12/23/18) simvastatin (Verified Allergy, Unknown, HIVES, 12/23/18) spironolactone (Verified Allergy, Unknown, SWELLING, 12/23/18) Vital Signs Vital Signs Date Time Temp Pulse Resp B/P (MAP) Pulse Ox O2 Delivery O2 Flow Rate FiO2 01/03/19 14:34 70 162/70 01/03/19 14:00 98.4 20 98 Laboratory Data CBC/BMP Laboratory Tests 01/03/19 08:06 Anion Gap -7 L, Uric Acid 7.8 H Labs 24H Laboratory Tests 2 01/02/19 16:47: Bedside Glucose (Misc Panel) 123H 01/02/19 19:46: Bedside Glucose (Misc Panel) 186H 01/03/19 06:22: Bedside Glucose (Misc Panel) 117H 01/03/19 08:06: Blood Urea Nitrogen 53H, Creatinine 2.26H, Sodium Level 140, Potassium Level 4.1, Chloride Level 119H, Carbon Dioxide Level 28, Anion Gap -7L, Uric Acid 7.8H, Glomerular Filtration Rate 30.5L, Calcium Level 8.1L, Phosphorus Level 3.7, Iron Level 34L, Total Iron Binding Capacity 216L, Transferrin % Saturation 15.7L, Ferritin 127, Albumin 2.5L, Parathyroid Hormone (Intact) 64.6 01/03/19 11:41: Bedside Glucose (Misc Panel) 78L Current Medications Current Medications Current Medications Acetaminophen (Tylenol Tab) 650 mg QID PO Last administered on 01/03/19at 14:34; Start 12/27/18 at 13:00 Acetaminophen (Tylenol Tab) 1,000 mg TID PO Last administered on 12/26/18at 17:15; Start 12/23/18 at 16:00; Stop 12/27/18 at 13:57; Status DC Al Hydrox/Mg Hydrox/Simethicone (Mylanta) 30 ml Q4HP PRN PO DYSPEPSIA; Start 12/23/18 at 14:30 Albuterol Sulfate (Proventil, Ventolin Hfa) 2 puff Q4HP PRN INH SHORTNESS OF BREATH; Start 12/23/18 at 14:30 Albuterol/ Ipratropium (Duoneb (Ipr 0.5mg/Alb 2.5mg)) 3 ml RQ8H NEB Last administered on 01/03/19at 15:49; Start 01/03/19 at 16:00 Allopurinol (Zyloprim) 100 mg DAILY PO Last administered on 01/03/19at 08:16; Start 12/24/18 at 09:00 Apixaban (Eliquis) 5 mg BID PO Last administered on 01/03/19at 08:16; Start 12/23/18 at 21:00 Bisacodyl (Dulcolax Tab) 5 mg DAILYPRN PRN PO CONSTIPATION; Start 12/23/18 at 14:30 Calcium Carbonate (Tums) 500 mg TID PRN PO INDIGESTION; Start 12/23/18 at 14:30 Carvedilol (COReg) 12.5 mg Q12H PO ; Start 01/03/19 at 21:00 Carvedilol (COReg) 25 mg BID PO Last administered on 12/26/18 09:41; Start 12/23/18 at 18:00; Stop 12/27/18 at 13:57; Status DC Clonidine HCl (Catapres) 0.1 mg BID PO ; Start 12/29/18 at 22:00; Stop 12/29/18 at 22:00; Status DC Clonidine HCl (Catapres) 0.1 mg Q12H PO Last administered on 01/03/19 06:50; Start 12/29/18 at 19:00 Clopidogrel Bisulfate (PLAVix) 75 mg DAILY PO Last administered on 01/03/19 08:16; Start 12/24/18 at 09:00 Daptomycin 1000 mg/Sodium Chloride 70 ml @ 120 mls/hr Q24H IV Last administe red on 01/02/19 17:41; Start 12/24/18 at 18:00 Daptomycin 1050 mg/Sodium Chloride 71 ml @ 71 mls/hr Q24H IV Last administered on 12/23/18at 20:42; Start 12/23/18 at 18:30; Stop 12/24/18 at 11:41; Status DC Dextrose (Dextrose 50%) 25 ml ASDIRECTED PRN IV SEE LABEL COMMENTS; Start 12/23/18 at 14:30 Docusate Sodium (Colace) 100 mg BID PO Last administered on 01/03/19 08:16; Start 12/23/18 at 21:00 Gabapentin (Neurontin) 300 mg QHS PO Last administered on 01/02/19 20:14; Start 12/23/18 at 21:00 Glucagon (Glucagon) 1 mg ASDIRECTED PRN SC SEE LABEL COMMENTS; Start 12/23/18 at 14:30 Glucose (Glucose) 16 GM ASDIRECTED PRN PO SEE LABEL COMMENTS; Start 12/23/18 at 14:30 Heparin Sodium (Heparin Lock Flush 10units/ml) 10 units ASDIRECTED PRN IV SEE LABEL COMMENTS Last administered on 12/29/18 17:16; Start 12/24/18 at 00:30 Heparin Sodium (Heparin Lock Flush 10units/ml) 10 units HLF IV Last a dministered on 01/03/19at 05:38; Start 12/24/18 at 06:00 Home Med (Med Rec Complete!) ASDIRECTED XX ; Start 12/23/18 at 16:00; Stop 12/23/18 at 16:00; Status DC Hydralazine HCl (Apresoline) 25 mg BID PO Last administered on 12/24/18at 09:02; Start 12/23/18 at 18:41; Stop 12/24/18 at 11:43; Status DC Hydralazine HCl (Apresoline) 25 mg TID PO Last administered on 12/27/18at 21:48; Start 12/24/18 at 16:00; Stop 12/28/18 at 07:27; Status DC Hydralazine HCl (Apresoline) 50 mg BID PO ; Start 12/23/18 at 18:15; Stop 12/23/18 at 18:38; Status DC Hydralazine HCl (Apresoline) 50 mg TID PO Last administered on 12/28/18at 20:27; Start 12/28/18 at 09:00; Stop 12/29/18 at 06:39; Status DC Hydralazine HCl (Apresoline) 100 mg TID PO Last administered on 01/03/19at 08:17; Start 12/29/18 at 09:00 Insulin Detemir (Levemir Insulin) 10 units DAILY SC Last administered on 01/03/19at 08:18; Start 12/24/18 at 09:00 Insulin Human Lispro (HumaLOG INSULIN) SEE PROTOCOL TABLE AC SC Last administered on 01/03/19at 08:19; Start 12/23/18 at 17:30 Insulin Human Lispro (HumaLOG INSULIN) SEE PROTOCOL TABLE QHS SC ; Start 12/23/18 at 21:00 Lactobacillus Acidophilus (Bacid) 1 ea TID PO Last administered on 01/03/19at 08:16; Start 12/23/18 at 21:00 Losartan Potassium (Cozaar) 50 mg QAM PO Last administered on 12/26/18at 09:40; Start 12/24/18 at 09:00; Stop 12/26/18 at 10:43; Status DC Losartan Potassium (Cozaar) 100 mg QAM PO Last administered on 01/03/19at 08:17; Start 12/27/18 at 09:00 Magnesium Hydroxide (Milk Of Magnesia) 30 ml DAILYPRN PRN PO CONSTIPATION; Start 12/23/18 at 14:30 Metoprolol Tartrate (Lopressor) 25 mg Q8H PO Last administered on 01/03/19 14:34; Start 12/27/18 at 14:00; Stop 01/03/19 at 15:34; Status DC Mineral Oil/White Petrolatum (Eucerin) apply to lower legs then w... DAILY TOP Last administered on 01/02/19 09:02; Start 12/24/18 at 09:00 Mirtazapine (Remeron) 15 mg QHS PO Last administered on 01/02/19 20:17; Start 12/23/18 at 21:00 Miscellaneous (Unresolved Clarification Entry) SEE LABEL COMMENTS DAILY XX ; Start 12/29/18 at 09:00; Status Cancel Miscellaneous (Unresolved Clarification Entry) SEE LABEL COMMENTS DAILY XX ; Start 12/30/18 at 09:00; Status UNV Multivitamins (Theragram-M) 1 tab DAILY@1200 PO Last administered on 01/03/19 12:00; Start 12/24/18 at 12:00 Potassium Chloride (Micro-K Extencaps) 10 meq BID PO Last administered on 01/03/19 08:17; Start 01/03/19 at 09:00 Senna (Senokot) 1 tab QHS PO Last administered on 01/02/19 20:15; Start 12/23/18 at 21:00 Sodium Chloride 500 ml @ 60 mls/hr Q8H20M IV Last administered on 12/28/18 13:40; Start 12/28/18 at 11:45; Stop 12/28/18 at 20:04; Status DC Sodium Chloride (Saline Lock Flush) 10 ml ASDIRECTED PRN IV SEE LABEL COMMENTS Last administered on 12/29/18 17:17; Start 12/24/18 at 00:30 Sodium Chloride (Saline Lock Flush) 10 ml SLF IV Last administered on 01/03/19 05:38; Start 12/24/18 at 06:00 Tamsulosin HCl (Flomax) 0.4 mg QHS PO Last administered on 01/02/19 20:16; Start 12/23/18 at 21:00 Torsemide (Demadex) 10 mg BID@09,17 PO Last administered on 01/02/19at 08:59; Start 12/26/18 at 17:00; Stop 01/02/19 at 10:51; Status DC Torsemide (Demadex) 20 mg BID@, PO Last administered on 12/26/18at 05:57; Start 12/23/18 at 17:00; Stop 12/26/18 at 12:48; Status DC Torsemide (Demadex) 20 mg BID@, PO Last administered on 01/03/19at 08:16; Start 01/02/19 at 17:00; Stop 01/03/19 at 10:30; Status DC Torsemide (Demadex) 30 mg BID@ PO ; Start 01/03/19 at 17:00 Vitamin D (Vitamin D) 2,000 units DAILY PO Last administered on 01/03/19at 08:17; Start 12/24/18 at 09:00 ROSSANA SAENZ MD Jan 03, 2019 15:52
[2019-01-03] MEDS: DAPTOmycin 1,000 MG in NS 50 ML IV SCH (17:05)
[2019-01-03] MEDS: TORSEMIDE 10 MG TABLET PO SCH (17:05)
--- NOTE | 2019-01-03 18:02 | IPN ---
DATE: 01/03/2019 Mr. Bradley is seen this morning on his bedside. He is sitting in the recliner chair at the time of my visit. His leg edema is unchanged, but he denies any dyspnea or chest pain. He has no nausea or vomiting. PHYSICAL EXAMINATION: Temperature 98.4 degrees Fahrenheit, heart rate 70 per minute and respiratory rate 20 per minute. Blood pressure 152/62 mmHg and oxygen saturation 98% on room air. Head is atraumatic. Neck is supple and jugular venous distention (JVD) is moderately elevated. Lungs with slightly diminished breath sounds and few basilar rales. Heart sounds are regular and without a pericardial friction rub. Abdomen soft and nontender and bowel sounds are normal. Extremities have no cyanosis or clubbing. Lower legs are wrapped in WILMA bandages. Skin has psoriasis. His right foot is wrapped in dressing. Right big toe is surgically absent. Today's labs show sodium 140, potassium 4.1, CO2 28, BUN 53 and creatinine 2.26. Glucose 204 and calcium 7.8. Iron level is 34, saturation 15.7. Albumin 2.5. Intact PTH level is 64.6. PROBLEMS: 1. Acute renal failure superimposed on chronic kidney disease. Patient has gradual worsening of kidney function. He is being diuresed and volume status is still decompensated. Will get a renal ultrasound to rule out any possibility of obstruction. His renal profile should be checked on daily basis. 2. Hypertension. Blood pressure control remains slightly suboptimal. Patient is volume overloaded and his blood pressure is likely to improve once his volume status is corrected. I am going to increase his torsemide dose to 30 mg daily. He is on multiple antihypertensive medications including vasodilator, angiotensin receptor yuko and beta-yuko. We will continue with all other medications as previously. 3. Peripheral edema. Patient is volume overloaded with significant lower extremity edema. He is being advised to restrict his fluid intake and I am increasing his torsemide dose to 30 mg twice a day. 4. Methicillin-resistant Staphylococcus aureus (MRSA) infection of right foot, status post amputation of right big toe. Patient remains on daptomycin 1000 mg every 24 hours. 5. Gout. He is currently asymptomatic and remains on allopurinol 100 mg daily. His uric acid level is 7.8 and he is being diuresed. I am going to increase his allopurinol dose to 200 mg daily.
--- NOTE | 2019-01-03 18:18 | IPN ---
DATE: 01/03/2019 Mr. Bradley is anxious to go home on Wednesday. There was some concern of worsening creatinine and fluid overload. Dr. Maxwell saw him and ordered a renal ultrasound. His anticipated discharge date would be on Wednesday. Case has been reviewed with Dr. Caputo, and records have been obtained from [facility]. I reviewed the note from Dr. Tahir Tadeo. There is no methicillin-resistant Staphylococcus aureus (MRSA) bacteremia. There were only positive cultures in the bone of MRSA and Enterococcus (E) faecalis. Patient remains on daptomycin 1 gram every 24 hours. PHYSICAL EXAMINATION: VITAL SIGNS: Stable. Temperature is 98.4. NECK: Supple. Jugular venous distention (JVD) elevated. LUNGS: Diminished at the bases. HEART: Normal S1, S2. No rubs. ABDOMEN: Markedly obese, soft, nontender. EXTREMITIES: With +1 pitting edema. Severe psoriasis. Wound vacuum-assisted closure (VAC) at the right toe amputation. IMPRESSION: 1. Osteomyelitis and gangrene of the right foot, status post toe amputation and metatarsal head resection of 1st and 2nd metatarsal done on December 13 with culture positive of the bone for methicillin-resistant Staphylococcus aureus (MRSA) and Enterococcus (E) faecalis 2. Acute kidney injury. Creatinine has increase from 1.6 to 2.49. 3. Hypertension with suboptimal control. PLAN: Discontinue intravenous (IV) daptomycin. Switch to by mouth linezolid. Please obtain prior authorization for linezolid for discharge for 2-week course. Patient can continue followup with vascular surgery in [place]. Dr. Yeh, who is partners with [facility], and if there is a need, he can followup with infectious disease at [facility], Dr. Ck Watson, if there is any evidence of persistent infection. That is patient's preference. Please get prior authorization for linezolid 600 mg by mouth twice a day for 2 weeks.
[2019-01-03] MEDS: GABAPENTIN 300 MG CAP PO SCH (21:06)
[2019-01-03] MEDS: MIRTAZAPINE 15 MG TAB PO SCH (21:07)
[2019-01-03] MEDS: TAMSULOSIN 0.4 MG CAP PO SCH (21:07)
[2019-01-03] MEDS: SENNA 8.6 MG TAB (SENOKOT) PO SCH (21:07)
[2019-01-03] MEDS: CARVedilol 12.5 MG TAB PO SCH (21:08)
[2019-01-04] MEDS: IPRATROPIUM 0.5MG/ALBUTEROL 2.5MG INH SOL UD 3ML (DUONEB)(J7620) NEB SCH ×4 (00:44→23:01)
[2019-01-04 05:49] VITALS: BP 150/88
[2019-01-04] MEDS: SODIUM CHLORIDE 0.9% INJ 10 ML SYR IV SCH ×3 (05:56→21:05)
[2019-01-04 06:40] VITALS: BP 144/72
[2019-01-04] MEDS: cloNIDine 0.1 MG TAB PO SCH ×2 (06:40→08:00)
[2019-01-04 07:20] LABS: C REACTIVE PROTEIN QUANTITATIV 3.36 MG/DL (0.00-0.30)
[2019-01-04] MEDS: ALLOPURINOL 100 MG TAB PO SCH (07:58)
[2019-01-04] MEDS: APIXABAN 5 MG TAB (ELIQUIS) PO SCH ×2 (07:58→21:04)
[2019-01-04] MEDS: **hydrALAZINE** 50 MG TAB PO SCH ×3 (07:58→21:05)
[2019-01-04] MEDS: VITAMIN D 1,000 INTERNATIONAL UNITS TABLET PO SCH (07:58)
[2019-01-04] MEDS: POTASSIUM CHLORIDE 10 MEQ SR TABLET PO SCH ×2 (07:59→21:04)
[2019-01-04] MEDS: LOSARTAN 50 MG TAB PO SCH (07:59)
[2019-01-04] MEDS: LACTOBACILLUS ACIDOPHILUS CAP (BACID) PO SCH ×3 (07:59→21:04)
[2019-01-04] MEDS: ACETAMINOPHEN TAB 650MG DOSE (2X325MG) PO SCH ×4 (07:59→21:05)
[2019-01-04] MEDS: CLOPIDOGREL 75 MG TAB PO SCH (07:59)
[2019-01-04] MEDS: LINEZOLID 600MG TABLET (ZYVOX) PO SCH ×2 (07:59→21:03)
[2019-01-04] MEDS: DOCUSATE SODIUM 100 MG CAP PO SCH ×2 (07:59→21:03)
[2019-01-04] MEDS: TORSEMIDE 10 MG TABLET PO SCH ×2 (08:00→16:41)
[2019-01-04] MEDS: LEVEMIR (INSULIN DETEMIR) 1 UNITS/0.01ML SC SCH (08:00)
[2019-01-04] MEDS: CARVedilol 12.5 MG TAB PO SCH ×2 (08:00→21:04)
[2019-01-04] MEDS: HumaLOG INSULIN (NovoLOG) PER UNIT SC SCH ×4 (08:01→20:31)
--- NOTE | 2019-01-04 08:07 | REPVR ---
EXAM: US Retroperitoneal Limited, Kidneys EXAM DATE/TIME: 01/03/2019 6:39 PM CLINICAL HISTORY: 73 years old, male; Condition or disease; Other: Arf TECHNIQUE: Imaging protocol: Real-time ultrasound of the retroperitoneum with image documentation. Examination was focused on the kidneys. COMPARISON: No relevant prior studies available. FINDINGS: Pancreas: There is a 4.3 x 4.9 x 4.0 cm lateral lower renal pole anechoic cyst with posterior acoustic enhancement. Right kidney: The right kidney measures 11.3 x 4.4 x 6.0 cm. Left kidney: The left kidney measures 11.3 x 4.5 x 6.5 cm. Common iliac arteries: There is no right or left hydronephrosis. Bladder: The urinary bladder appears grossly unremarkable. No intra-bladder mass or stone seen. There is no obvious bladder wall thickening. Other findings: The right and left renal parenchymal echogenicity is within normal limits. There is relative increase in right and left sinus fat. IMPRESSION: 4.3 x 4.9 x 4.0 cm exophytic simple-appearing right lower renal pole cyst. Otherwise unremarkable ultrasound. Electronically signed by: Sumanth De León On 01/04/2019 08:07:20 AM
[2019-01-04 09:48] LABS: ALBUMIN 2.6 GM/DL (3.2-5.2); CALCIUM LEVEL 8.5 MG/DL (8.8-10.2); CREATININE FOR GFR 2.13 MG/DL (0.70-1.30); GLOMERULAR FILTRATION RATE 32.7 (>42); PHOSPHORUS LEVEL 3.7 MG/DL (2.5-4.9); POTASSIUM SERUM 4.4 MEQ/L (3.5-5.1)
--- NOTE | 2019-01-04 11:45 | IPN ---
DATE: 01/04/2019 SUBJECTIVE: Mr. Bradley was seen and examined this morning. He continues to have no new complaints. He is sitting in his recliner comfortably. He continues to have some leg edema, which is unchanged. He is denying any shortness of breath or chest pain at this time. He denies any nausea, vomiting, diarrhea or constipation. PHYSICAL EXAMINATION: VITAL SIGNS: Temperature 97.9, heart rate 75, blood pressure 144/72, pulse oximetry 97% on room air. HEENT: Head is atraumatic, normocephalic. NECK: Supple with some mildly elevated jugular venous distention (JVD). PULMONARY: Breath sounds are slightly diminished bilaterally with some bibasilar crackles at the bases. CARDIAC EXAMINATION: Regular rate and rhythm. No clicks, rubs or murmurs noted. Normal S1 and S2. ABDOMINAL: Nondistended. Nontender to palpation. Obese. Positive bowel sounds throughout all four quadrants. EXTREMITIES: Lower legs are currently wrapped in WILMA bandages. The patient is status post amputation of his right great toe. He has psoriasis plaques bilaterally. LABORATORIES: Hematology: White blood cell count 9.2, hemoglobin 10.3, hematocrit 35.1, platelet count of 186. Erythrocyte sedimentation rate (ESR) 58. Chemistries: Sodium 147, potassium 4.4, chloride 114, CO2 28, BUN 53, creatinine 1.3, fasting glucose 120, calcium 8.5. C-reactive protein 3.36. Albumin 2.6. ASSESSMENT/PLAN: 1. Acute renal failure superimposed on chronic kidney. The patient had his torsemide dose increased to 30 mg daily yesterday. His creatinine has shown mild improvement overnight. He continues to be volume overloaded. Will continue with his current dose of torsemide. He has had a renal ultrasound completed which did not show any signs of obstruction. His renal profile is pending. 2. Hypertension. The patient's blood pressure has improved somewhat, however he is still not optimal. He appears to be volume overloaded. His torsemide dose was increased to 30 mg daily yesterday. Will continue this. He is currently on multiple antihypertensive medications as well including a vasodilator, angiotension receptor blockers, beta-blockers. Will continue these as well and monitor. 3. Peripheral edema. The patient has significant lower extremity edema. He is to continue with fluid restriction. He will continue to diurese on his torsemide dose of 30 mg. 4. Methicillin-resistant Staphylococcus aureus (MRSA) infection of the right foot. The patient is currently status post amputation of right big toe. He is currently on daptomycin 1000 mg every 24 hours. He is being followed by infectious disease. 5. Gout. The patient is currently asymptomatic. His uric yesterday was 7.8 and he was being diuresed so his allopurinol has been increased to 200 mg daily. He continues to be asymptomatic. Will continue on current dose. MTDD
[2019-01-04] MEDS: MULTIVITAMINS/MINERALS THERAP 1 TAB PO SCH (13:28)
--- NOTE | 2019-01-04 13:28 | IPNPDOC ---
Text Note Date of Service The patient was seen on 01/04/19. NOTE Subjective: reports improvement in SOB with breathing treatments. Denies chest pain, chills, fever. Objective: GENERAL: NAD SKIN : Warm, psoriatic lesions to discrete skin areas. wound vac to right foot HEENT: Atraumatic, normocephalic, PERRL, CARDIOVASCULAR: irregular rate and rhythm, no JVD, BLE edema, without erythema RESP: diminished, no accessory muscle use noted ABDOMEN: BS+ non distended non tender MS: no joint deformities NEURO: Alert and oriented x 3, CN2-12 grossly intact PSYCH: no anxiety or agitation, appropriate mood and affect. ASSESSMENT/PLAN Hypertension -better controlled with change to Coreg -adjust Coreg dose to 25mg BID -blood pressure monitoring per unit protocol CKD stage 3 -nephrology on board, managing -avoid hypertension -avoid nephrotoxic medications -continue to monitor intermittently Dyspnea -resolved with initiation of bronchodilator therapy -continue Intermittent monitoring of oxygen saturation to keep greater than 92% PAD -s/p right femoral endarterectomy, right femoral popliteal bypass at [facility] in October 2018 -with non healing ulcer, gangrene and osteomyelitis of right toe -S/P disarticulation -Antibiotic therapy changed to Linezolid -Mobilization post amputation by primary team Atrial Fibrillation -continue betablocker therapy -anticoagulation with Eliquis Type 2 diabetes mellitus -Caloric controlled diet -Finger stick checks prior to meals and at bedtime -Coverage with insulin per sliding scale protocol Morbid Obesity with BMI of 41.8 complicating care DVT prophylaxis -Fully anticoagulated VS,Fishbone, I+O VS, Fishbone, I+O Laboratory Tests 01/04/19 06:23 Anion Gap 5 L Vital Signs Date Time Temp Pulse Resp B/P (MAP) Pulse Ox O2 Delivery O2 Flow Rate FiO2 01/04/19 08:00 75 144/72 01/04/19 05:50 97.9 18 97 I&O- Last 24 Hours up to 6 AM 01/04/19 06:00 Intake Total 910 ml Output Total 1750 ml Balance -840 ml RAEGAN PRIEST DIRECTOR OF [employer] SYSTEMS Jan 04, 2019 13:28
[2019-01-04 14:00] VITALS: BP 143/64
--- NOTE | 2019-01-04 14:09 | IPNPDOC ---
PM&R Progress Note DATE OF SERVICE: Jan 04, 2019 Early Childhood Progress Note Subjective: REVIEW OF SYSTEMS: The following is a completed review of systems and has been reviewed. Review of systems otherwise unremarkable. PAIN: Patient self reports no pain EYES: no recent vision changes EARS, NOSE, & THROAT: denies dysphagia, rhinorrhea CARDIOVASCULAR: denies chest pain or palpitations PULMONARY: Negative. +orthopnea GASTROINTESTINAL:denies diarrhea/constipation GENITOURINARY: denies incontinence or dysuria MUSCULOSKELETAL: bilat LE weakness, right hip fracture NEUROLOGICAL: peripheral neuropathy HEMATOLOGICAL: +anemia SKIN: right foot ulcer and venous stasis changes in bilat calves PSYCHIATRIC: +depressed All other review of systems found to be negative. PHYSICAL EXAMINATION: VITAL SIGNS: Please see below. GENERAL: Pleasant and cooperative. No acute distress. HEENT: PERRL. Extraocular movements intact. Clear conjunctiva CARDIOVASCULAR: Irregular rate and rhythm. No murmurs, rubs, or gallops LUNGS: Clear to auscultation bilaterally. No wheezes. No rhonchi ABDOMEN: Soft, nontender, nondistended. Positive bowel sounds. Normal active bowel sounds NEUROLOGICAL: Alert and oriented times three. Cranial nerves II through XII yuki ssly intact. Sensation absent in bilat feet and ankles in stock pattern EXTREMITIES: 5\5 strength bilateral upper extremities. 4\5 strength right hip flexion and knee extension 2/5 right ankle DF 4/5 strength in left lower extremity. bilat calf edema SKIN: right medial foot wound with granulation tissue, macerated, not malodorous right medial calf incision with sutures c/d/i bilateral psoriatic patches scattered over LE right groin sutures c/d/i medial right calf sutures c/d/i sacral erythema and moisture with psoriatic lesions ASSESSMENT:73-year-old M with past medical history of DM, CKD CAD, peripheral neuropathy who presents status post right toe amputation with wound vac. PLAN: 1. Rehab: PT, OT. assess for DMEs, ambulating with RW, nearly Mod-I for room mobility -goal to strengthen core, LLE for optimal ambulation short distances 30-50 feet max with forefoot off-battery loader (PWB for RLE) -strengthen upper extremities 2. Neuro: peripheral neuropathy- c/u glycemic control 3. ID: MRSA and enterococcus osteomyelitis, s/p Daptomycin IV will switch to po Linezolid for 6 weeks total antibiotics, Dr. Phuong heath appreciated -c/u wound vac change MWF -monitor CRP/ESR 4. CArdio: pmh HTN and CHF- c/u BP meds and diuretics, medicine consulted to assist -c/u Cozaar to 100mg for elevated BPs, clonidine, and hydralazine -Afib on eliquis 5. Endo: pmh DM- c/u insulin and adjust prn 6. Vascular: pmh PVD s/p multiple interventions- has f/u with vascular surgeon 01/16/19 for suture removal 7. Pain:c/u gabapentin 8. Psych: c/u Remeron for depression and insomnia-stable 9. Skin: BID dressing changes to bilat calves, wound vac MWF -corn starch to sacrum and cover with optifoam 10. GI ppx: protonix 11. DVT ppx: on eliquis 12. Renal: recent MARLEN, will monitor, needs f/u with nephrology on discharge- Dr. Maxwell's recs appreciated, c/u Torsemide 30mg BID, potassium supplementation, and fluid restrict to 1500cc 13. Dispo 01/06/19 to home, progressing towards goals Allergies Coded Allergies: amlodipine (Verified Allergy, Unknown, 12/23/18) atorvastatin (Verified Allergy, Unknown, HIVES, 12/23/18) rosuvastatin (Verified Allergy, Unknown, HIVES, 12/23/18) simvastatin (Verified Allergy, Unknown, HIVES, 12/23/18) spironolactone (Verified Allergy, Unknown, SWELLING, 12/23/18) Vital Signs Vital Signs Date Time Temp Pulse Resp B/P (MAP) Pulse Ox O2 Delivery O2 Flow Rate FiO2 01/04/19 08:00 75 144/72 01/04/19 05:50 97.9 18 97 Laboratory Data CBC/BMP Laboratory Tests 01/04/19 06:23 Anion Gap 5 L Labs 24H Laboratory Tests 2 01/03/19 16:33: Bedside Glucose (Misc Panel) 87 01/03/19 19:42: Bedside Glucose (Misc Panel) 207H 01/04/19 06:23: Erythrocyte Sedimentation Rate 58H, Blood Urea Nitrogen 53H, Creatinine 2.13H, Sodium Level 147H, Potassium Level 4.4, Chloride Level 114H, Carbon Dioxide Level 28, Anion Gap 5L, Glomerular Filtration Rate 32.7L, Calcium Level 8.5L, Phosphorus Level 3.7, C-Reactive Protein, Quantitative 3.36H, Albumin 2.6L 01/04/19 06:37: Bedside Glucose (Misc Panel) 114H 01/04/19 11:51: Bedside Glucose (Misc Panel) 113H Current Medications Current Medications Current Medications Acetaminophen (Tylenol Tab) 650 mg QID PO Last administered on 01/04/19at 13:28; Start 12/27/18 at 13:00 Acetaminophen (Tylenol Tab) 1,000 mg TID PO Last administered on 12/26/18at 17:15; Start 12/23/18 at 16:00; Stop 12/27/18 at 13:57; Status DC Al Hydrox/Mg Hydrox/Simethicone (Mylanta) 30 ml Q4HP PRN PO DYSPEPSIA; Start 12/23/18 at 14:30 Albuterol Sulfate (Proventil, Ventolin Hfa) 2 puff Q4HP PRN INH SHORTNESS OF BREATH; Start 12/23/18 at 14:30 Albuterol/ Ipratropium (Duoneb (Ipr 0.5mg/Alb 2.5mg)) 3 ml RQ8H NEB Last administered on 01/04/19at 07:35; Start 01/03/19 at 16:00 Allopurinol (Zyloprim) 100 mg DAILY PO Last administered on 01/03/19at 08:16; Start 12/24/18 at 09:00; Stop 01/03/19 at 16:57; Status DC Allopurinol (Zyloprim) 200 mg DAILY PO Last administered on 01/04/19at 07:58; Start 01/04/19 at 09:00 Apixaban (Eliquis) 5 mg BID PO Last administered on 01/04/19at 07:58; Start 12/23/18 at 21:00 Bisacodyl (Dulcolax Tab) 5 mg DAILYPRN PRN PO CONSTIPATION; Start 12/23/18 at 14:30 Calcium Carbonate (Tums) 500 mg TID PRN PO INDIGESTION; Start 12/23/18 at 14:30 Carvedilol (COReg) 12.5 mg Q12H PO Last administered on 01/04/19at 08:00; Start 01/03/19 at 21:00; Stop 01/04/19 at 13:06; Status DC Carvedilol (COReg) 25 mg BID PO Last administered on 12/26/18at 09:41; Start 12/23/18 at 18:00; Stop 12/27/18 at 13:57; Status DC Carvedilol (COReg) 25 mg Q12H PO ; Start 01/04/19 at 21:00 Clonidine HCl (Catapres) 0.1 mg BID PO ; Start 12/29/18 at 22:00; Stop 12/29/18 at 22:00; Status DC Clonidine HCl (Catapres) 0.1 mg Q12H PO Last administered on 01/04/19at 08:00; Start 12/29/18 at 19:00 Clopidogrel Bisulfate (PLAVix) 75 mg DAILY PO Last administered on 01/04/19at 07:59; Start 12/24/18 at 09:00 Daptomycin 1000 mg/Sodium Chloride 70 ml @ 120 mls/hr Q24H IV Last administered on 01/03/19at 17:05; Start 12/24/18 at 18:00; Stop 01/03/19 at 23:00; Status DC Daptomycin 1050 mg/Sodium Chloride 71 ml @ 71 mls/hr Q24H IV Last administered on 12/23/18at 20:42; Start 12/23/18 at 18:30; Stop 12/24/18 at 11:41; Status DC Dextrose (Dextrose 50%) 25 ml ASDIRECTED PRN IV SEE LABEL COMMENTS; Start 12/23/18 at 14:30 Docusate Sodium (Colace) 100 mg BID PO Last administered on 01/04/19at 07:59; Start 12/23/18 at 21:00 Gabapentin (Neurontin) 300 mg QHS PO Last administered on 01/03/19at 21:06; Start 12/23/18 at 21:00 Glucagon (Glucagon) 1 mg ASDIRECTED PRN SC SEE LABEL COMMENTS; Start 12/23/18 at 14:30 Glucose (Glucose) 16 GM ASDIRECTED PRN PO SEE LABEL COMMENTS; Start 12/23/18 at 14:30 Heparin Sodium (Heparin Lock Flush 10units/ml) 10 units ASDIRECTED PRN IV SEE LABEL COMMENTS Last administered on 12/29/18at 17:16; Start 12/24/18 at 00:30 Heparin Sodium (Heparin Lock Flush 10units/ml) 10 units HLF IV Last administered on 01/04/19 13:29; Start 12/24/18 at 06:00 Home Med (Med Rec Complete!) ASDIRECTED XX ; Start 12/23/18 at 16:00; Stop 12/23/18 at 16:00; Status DC Hydralazine HCl (Apresoline) 25 mg BID PO Last administered on 12/24/18at 09:02; Start 12/23/18 at 18:41; Stop 12/24/18 at 11:43; Status DC Hydralazine HCl (Apresoline) 25 mg TID PO Last administered on 12/27/18at 21:48; Start 12/24/18 at 16:00; Stop 12/28/18 at 07:27; Status DC Hydralazine HCl (Apresoline) 50 mg BID PO ; Start 12/23/18 at 18:15; Stop 12/23/18 at 18:38; Status DC Hydralazine HCl (Apresoline) 50 mg TID PO Last administered on 12/28/18at 20:27; Start 12/28/18 at 09:00; Stop 12/29/18 at 06:39; Status DC Hydralazine HCl (Apresoline) 100 mg TID PO Last administered on 01/04/19at 07:58; Start 12/29/18 at 09:00 Insulin Detemir (Levemir Insulin) 10 units DAILY SC Last administered on 01/04/19at 08:00; Start 12/24/18 at 09:00 Insulin Human Lispro (HumaLOG INSULIN) SEE PROTOCOL TABLE AC SC Last administered on 01/04/19 13:29; Start 12/23/18 at 17:30 Insulin Human Lispro (HumaLOG INSULIN) SEE PROTOCOL TABLE QHS SC ; Start 12/23/18 at 21:00 Lactobacillus Acidophilus (Bacid) 1 ea TID PO Last administered on 01/04/19at 07:59; Start 12/23/18 at 21:00 Linezolid (Zyvox) 600 mg BID PO Last administered on 01/04/19 07:59; Start 01/04/19 at 09:00 Losartan Potassium (Cozaar) 50 mg QAM PO Last administered on 12/26/18 09:40; Start 12/24/18 at 09:00; Stop 12/26/18 at 10:43; Status DC Losartan Potassium (Cozaar) 100 mg QAM PO Last administered on 01/04/19 07:59; Start 12/27/18 at 09:00 Magnesium Hydroxide (Milk Of Magnesia) 30 ml DAILYPRN PRN PO CONSTIPATION; Start 12/23/18 at 14:30 Metoprolol Tartrate (Lopressor) 25 mg Q8H PO Last administered on 01/03/19 14:34; Start 12/27/18 at 14:00; Stop 01/03/19 at 15:34; Status DC Mineral Oil/White Petrolatum (Eucerin) apply to lower legs then w... DAILY TOP Last administered on 01/02/19 09:02; Start 12/24/18 at 09:00 Mirtazapine (Remeron) 15 mg QHS PO Last administered on 01/03/19 21:07; Start 12/23/18 at 21:00 Miscellaneous (Unresolved Clarification Entry) SEE LABEL COMMENTS DAILY XX ; Start 12/29/18 at 09:00; Status Cancel Miscellaneous (Unresolved Clarification Entry) SEE LABEL COMMENTS DAILY XX ; Start 12/30/18 at 09:00; Status UNV Multivitamins (Theragram-M) 1 tab DAILY@1200 PO Last administered on 01/04/19 13:28; Start 12/24/18 at 12:00 Potassium Chloride (Micro-K Extencaps) 10 meq BID PO Last administered on 01/04/19 07:59; Start 01/03/19 at 09:00 Senna (Senokot) 1 tab QHS PO Last administered on 01/03/19 21:07; Start 12/23/18 at 21:00 Sodium Chloride 500 ml @ 60 mls/hr Q8H20M IV Last administered on 12/28/18 13:40; Start 12/28/18 at 11:45; Stop 12/28/18 at 20:04; Status DC Sodium Chloride (Saline Lock Flush) 10 ml ASDIRECTED PRN IV SEE LABEL COMMENTS Last administered on 12/29/18 17:17; Start 12/24/18 at 00:30 Sodium Chloride (Saline Lock Flush) 10 ml SLF IV Last administered on 01/04/19at 13:29; Start 12/24/18 at 06:00 Tamsulosin HCl (Flomax) 0.4 mg QHS PO Last administered on 01/03/19at 21:07; Start 12/23/18 at 21:00 Torsemide (Demadex) 10 mg BID@,17 PO Last administered on 01/02/19at 08:59; Start 12/26/18 at 17:00; Stop 01/02/19 at 10:51; Status DC Torsemide (Demadex) 20 mg BID@,17 PO Last administered on 12/26/18at 05:57; Start 12/23/18 at 17:00; Stop 12/26/18 at 12:48; Status DC Torsemide (Demadex) 20 mg BID@,17 PO Last administered on 01/03/19at 08:16; Start 01/02/19 at 17:00; Stop 01/03/19 at 10:30; Status DC Torsemide (Demadex) 30 mg BID@,17 PO Last administered on 01/04/19 08:00; Start 01/03/19 at 17:00 Vitamin D (Vitamin D) 2,000 units DAILY PO Last administered on 01/04/19at 07:58; Start 12/24/18 at 09:00 ROSSANA SAENZ MD Jan 04, 2019 14:09
[2019-01-04 16:00] VITALS: BP 140/60
[2019-01-04 20:42] VITALS: BP 156/70
[2019-01-04] MEDS: TAMSULOSIN 0.4 MG CAP PO SCH (21:03)
[2019-01-04] MEDS: GABAPENTIN 300 MG CAP PO SCH (21:03)
[2019-01-04] MEDS: MIRTAZAPINE 15 MG TAB PO SCH (21:04)
[2019-01-04] MEDS: SENNA 8.6 MG TAB (SENOKOT) PO SCH (21:04)
[2019-01-05] MEDS: SODIUM CHLORIDE 0.9% INJ 10 ML SYR IV SCH ×3 (06:41→22:04)
[2019-01-05] MEDS: cloNIDine 0.1 MG TAB PO SCH ×2 (06:41→18:29)
[2019-01-05 06:45] VITALS: BP 148/70
[2019-01-05] MEDS: IPRATROPIUM 0.5MG/ALBUTEROL 2.5MG INH SOL UD 3ML (DUONEB)(J7620) NEB SCH ×2 (07:15→16:00)
[2019-01-05] MEDS: VITAMIN D 1,000 INTERNATIONAL UNITS TABLET PO SCH (09:04)
[2019-01-05] MEDS: POTASSIUM CHLORIDE 10 MEQ SR TABLET PO SCH ×2 (09:04→22:01)
[2019-01-05] MEDS: LACTOBACILLUS ACIDOPHILUS CAP (BACID) PO SCH ×3 (09:04→22:03)
[2019-01-05] MEDS: LINEZOLID 600MG TABLET (ZYVOX) PO SCH ×2 (09:04→22:03)
[2019-01-05] MEDS: DOCUSATE SODIUM 100 MG CAP PO SCH ×2 (09:04→21:00)
[2019-01-05] MEDS: TORSEMIDE 10 MG TABLET PO SCH ×2 (09:04→16:42)
[2019-01-05] MEDS: CLOPIDOGREL 75 MG TAB PO SCH (09:05)
[2019-01-05] MEDS: LOSARTAN 50 MG TAB PO SCH (09:05)
[2019-01-05] MEDS: ALLOPURINOL 100 MG TAB PO SCH (09:05)
[2019-01-05] MEDS: APIXABAN 5 MG TAB (ELIQUIS) PO SCH ×2 (09:05→22:03)
[2019-01-05] MEDS: **hydrALAZINE** 50 MG TAB PO SCH ×3 (09:05→22:02)
[2019-01-05] MEDS: LEVEMIR (INSULIN DETEMIR) 1 UNITS/0.01ML SC SCH (09:06)
[2019-01-05] MEDS: CARVedilol 12.5 MG TAB PO SCH ×2 (09:06→22:03)
[2019-01-05] MEDS: ACETAMINOPHEN TAB 650MG DOSE (2X325MG) PO SCH ×4 (09:07→21:00)
[2019-01-05] MEDS: EUCERIN 120GM CREAM TOP SCH (09:07)
[2019-01-05] MEDS: HumaLOG INSULIN (NovoLOG) PER UNIT SC SCH ×4 (09:07→21:00)
--- NOTE | 2019-01-05 11:39 | IPN ---
DATE: 01/04/2019 SUBJECTIVE: Mr. Bradley is seen and examined this morning. Once again he did have no new complaints. He sitting in his recliner comfortably. Denied any shortness of breath, denies any chest pain. No nausea, vomiting, diarrhea or constipation. He does have leg edema, however, this has decreased somewhat. There have been no adverse events reported overnight. OBJECTIVE: PHYSICAL EXAMINATION: VITAL SIGNS: Temperature 98.5, pulse 66, respiratory rate 18, blood pressure 140/70, pulse oximetry 97% on room air. HEENT: Atraumatic, normocephalic. Eyes are not icteric. Trachea is midline. NECK: Supple with no elevated jugular venous distention. PULMONARY: Clear vesicular breath sounds bilaterally, somewhat decreased in the bases. No wheezes, rhonchi or rales. Good chest expansion. No accessory muscle use. CARDIAC EXAMINATION: Regular rate and rhythm. No clicks, rubs or murmurs. Normal S1, S2. ABDOMEN: Obese, nondistended. Nontender to palpation in all four quadrants. Positive bowel sounds throughout. EXTREMITIES: Lower legs continue to be wrapped in vero bandages. Patient is status post amputation of his right great toe. He does have severe edema bilaterally, although improved from previous examination. Psoriasis plaques are present on his legs bilaterally. ASSESSMENT/PLAN: 1. Acute renal failure superimposed on chronic kidney disease: The patient is continued on torsemide dose 30 mg daily. He continues to be volume overloaded. He has diuresed approximately a liter. Will continue his current dose. 2. Hypertension: Patient's blood pressure continues to be somewhat stable and optimal. Will continue with his current torsemide dose and his current antihypertensive medication as well. 3. Peripheral edema: He has significant lower extremity edema. He continues to be on fluid restriction. Will continue to diuresis with 3 mg torsemide daily. 4. Staphylococcus aureus (MRSA) infection of the right foot: Patient is currently status post amputation of his right big toe. Currently daptomycin 1000 mg every 24 hours. 5. Gout: Patient continues to be asymptomatic. Will continue allopurinol 200 mg daily. MTDD
[2019-01-05] MEDS: MULTIVITAMINS/MINERALS THERAP 1 TAB PO SCH (12:44)
[2019-01-05 14:00] VITALS: BP 140/64
--- NOTE | 2019-01-05 14:47 | IPNPDOC ---
PM&R Progress Note [employer] Progress Note DATE OF ADMISSION: Dec 23, 2018 at 13:33 INPATIENT REHABILITATION ADMISSION DAY: # SUBJECTIVE: Patient is a -year-old with . ALLERGIES: See Below MEDICATIONS: Reviewed, see below. OBJECTIVE: VITAL SIGNS: Please see below. PHYSICAL EXAMINATION: GENERAL: [Cachectic, well developed, sitting up in bed, no acute distress]. HEENT: [Normocephalic, atraumatic]. [No facial droop]. [Poor dentition, missing teeth. PERRL, EOMI]. CARDIOVASCULAR: [S1, S2, irregular rate]. [No lower limb edema or calf tenderness]. LUNGS: [Decreased breath sounds, coarse throughout]. ABDOMEN: [Soft, nontender, nondistended. Normoactive bowel sounds throughout]. MUSCULOSKELETAL: MMT: /5 strength proximally bilateral shoulder abduction, forward flexion and bilateral hip flexion. /5 strength bilateral elbow flexion, knee flexion, /5 bilateral elbow extension and knee extension. /5 medical assistant instructor, dorsiflexion, plantar flexion. NEUROLOGICAL: [Alert and oriented times three]. [Answers all question appropriately]. SKIN: . LABORATORY DATA: Reviewed. Please see below. MICROBIOLOGY: Please see below. IMAGING: ASSESSMENT AND PLAN: 1. . 2. . 3. . TIME SPENT: Chart Review, examination and documentation minutes. Allergies Coded Allergies: amlodipine (Verified Allergy, Unknown, 12/23/18) atorvastatin (Verified Allergy, Unknown, HIVES, 12/23/18) rosuvastatin (Verified Allergy, Unknown, HIVES, 12/23/18) simvastatin (Verified Allergy, Unknown, HIVES, 12/23/18) spironolactone (Verified Allergy, Unknown, SWELLING, 12/23/18) Vital Signs Vital Signs Date Time Temp Pulse Resp B/P (MAP) Pulse Ox O2 Delivery O2 Flow Rate FiO2 01/05/19 14:00 98.3 73 18 140/64 (89) 96 Laboratory Data Labs 24H Laboratory Tests 2 01/04/19 16:11: Bedside Glucose (Misc Panel) 163H 01/04/19 20:28: Bedside Glucose (Misc Panel) 185H 01/05/19 06:04: Bedside Glucose (Misc Panel) 116H 01/05/19 11:39: Bedside Glucose (Misc Panel) 89 Current Medications Current Medications Current Medications Acetaminophen (Tylenol Tab) 650 mg QID PO Last administered on 01/05/19 12:44; Start 12/27/18 at 13:00 Acetaminophen (Tylenol Tab) 1,000 mg TID PO Last administered on 12/26/18 17:15; Start 12/23/18 at 16:00; Stop 12/27/18 at 13:57; Status DC Al Hydrox/Mg Hydrox/Simethicone (Mylanta) 30 ml Q4HP PRN PO DYSPEPSIA; Start 12/23/18 at 14:30 Albuterol Sulfate (Proventil, Ventolin Hfa) 2 puff Q4HP PRN INH SHORTNESS OF BREATH; Start 12/23/18 at 14:30 Albuterol/ Ipratropium (Duoneb (Ipr 0.5mg/Alb 2.5mg)) 3 ml RQ8H NEB Last administered on 01/05/19 07:15; Start 01/03/19 at 16:00 Allopurinol (Zyloprim) 100 mg DAILY PO Last administered on 01/03/19at 08:16; Start 12/24/18 at 09:00; Stop 01/03/19 at 16:57; Status DC Allopurinol (Zyloprim) 200 mg DAILY PO Last administered on 01/05/19 09:05; Start 01/04/19 at 09:00 Apixaban (Eliquis) 5 mg BID PO Last administered on 01/05/19at 09:05; Start 12/23/18 at 21:00 Bisacodyl (Dulcolax Tab) 5 mg DAILYPRN PRN PO CONSTIPATION; Start 12/23/18 at 14:30 Calcium Carbonate (Tums) 500 mg TID PRN PO INDIGESTION; Start 12/23/18 at 14:30 Carvedilol (COReg) 12.5 mg Q12H PO Last administered on 01/04/19 08:00; Start 01/03/19 at 21:00; Stop 01/04/19 at 13:06; Status DC Carvedilol (COReg) 25 mg BID PO Last administered on 12/26/18 09:41; Start 12/23/18 at 18:00; Stop 12/27/18 at 13:57; Status DC Carvedilol (COReg) 25 mg Q12H PO Last administered on 01/05/19 09:06; Start 01/04/19 at 21:00 Clonidine HCl (Catapres) 0.1 mg BID PO ; Start 12/29/18 at 22:00; Stop 12/29/18 at 22:00; Status DC Clonidine HCl (Catapres) 0.1 mg Q12H PO Last administered on 01/04/19at 08:00; Start 12/29/18 at 19:00 Clopidogrel Bisulfate (PLAVix) 75 mg DAILY PO Last administered on 01/05/19at 09:05; Start 12/24/18 at 09:00 Daptomycin 1000 mg/Sodium Chloride 70 ml @ 120 mls/hr Q24H IV Last administered on 01/03/19 17:05; Start 12/24/18 at 18:00; Stop 01/03/19 at 23:00; Status DC Daptomycin 1050 mg/Sodium Chloride 71 ml @ 71 mls/hr Q24H IV Last administered on 12/23/18at 20:42; Start 12/23/18 at 18:30; Stop 12/24/18 at 11:41; Status DC Dextrose (Dextrose 50%) 25 ml ASDIRECTED PRN IV SEE LABEL COMMENTS; Start 12/23/18 at 14:30 Docusate Sodium (Colace) 100 mg BID PO Last administered on 01/05/19at 09:04; Start 12/23/18 at 21:00 Gabapentin (Neurontin) 300 mg QHS PO Last administered on 01/04/19at 21:03; Start 12/23/18 at 21:00 Glucagon (Glucagon) 1 mg ASDIRECTED PRN SC SEE LABEL COMMENTS; Start 12/23/18 at 14:30 Glucose (Glucose) 16 GM ASDIRECTED PRN PO SEE LABEL COMMENTS; Start 12/23/18 at 14:30 Heparin Sodium (Heparin Lock Flush 10units/ml) 10 units ASDIRECTED PRN IV SEE LABEL COMMENTS Last administered on 12/29/18at 17:16; Start 12/24/18 at 00:30 Heparin Sodium (Heparin Lock Flush 10units/ml) 10 units HLF IV Last administered on 01/05/19at 14:21; Start 12/24/18 at 06:00 Home Med (Med Rec Complete!) ASDIRECTED XX ; Start 12/23/18 at 16:00; Stop 12/23/18 at 16:00; Status DC Hydralazine HCl (Apresoline) 25 mg BID PO Last administered on 12/24/18at 09:02; Start 12/23/18 at 18:41; Stop 12/24/18 at 11:43; Status DC Hydralazine HCl (Apresoline) 25 mg TID PO Last administered on 12/27/18at 21:48; Start 12/24/18 at 16:00; Stop 12/28/18 at 07:27; Status DC Hydralazine HCl (Apresoline) 50 mg BID PO ; Start 12/23/18 at 18:15; Stop 12/23/18 at 18:38; Status DC Hydralazine HCl (Apresoline) 50 mg TID PO Last administered on 12/28/18at 20:27; Start 12/28/18 at 09:00; Stop 12/29/18 at 06:39; Status DC Hydralazine HCl (Apresoline) 100 mg TID PO Last administered on 01/05/19at 09:05; Start 12/29/18 at 09:00 Insulin Detemir (Levemir Insulin) 10 units DAILY SC Last administered on 01/05/19at 09:06; Start 12/24/18 at 09:00 Insulin Human Lispro (HumaLOG INSULIN) SEE PROTOCOL TABLE AC SC Last administered on 01/05/19at 09:07; Start 12/23/18 at 17:30 Insulin Human Lispro (HumaLOG INSULIN) SEE PROTOCOL TABLE QHS SC ; Start 12/23/18 at 21:00 Lactobacillus Acidophilus (Bacid) 1 ea TID PO Last administered on 01/05/19at 09:04; Start 12/23/18 at 21:00 Linezolid (Zyvox) 600 mg BID PO Last administered on 01/05/19at 09:04; Start 01/04/19 at 09:00 Losartan Potassium (Cozaar) 50 mg QAM PO Last administered on 12/26/18at 09:40; Start 12/24/18 at 09:00; Stop 12/26/18 at 10:43; Status DC Losartan Potassium (Cozaar) 100 mg QAM PO Last administered on 01/05/19at 09:05; Start 12/27/18 at 09:00 Magnesium Hydroxide (Milk Of Magnesia) 30 ml DAILYPRN PRN PO CONSTIPATION; Start 12/23/18 at 14:30 Metoprolol Tartrate (Lopressor) 25 mg Q8H PO Last administered on 01/03/19 14:34; Start 12/27/18 at 14:00; Stop 01/03/19 at 15:34; Status DC Mineral Oil/White Petrolatum (Eucerin) apply to lower legs then w... DAILY TOP Last administered on 01/05/19 09:07; Start 12/24/18 at 09:00 Mirtazapine (Remeron) 15 mg QHS PO Last administered on 01/04/19 21:04; Start 12/23/18 at 21:00 Miscellaneous (Unresolved Clarification Entry) SEE LABEL COMMENTS DAILY XX ; Start 12/29/18 at 09:00; Status Cancel Miscellaneous (Unresolved Clarification Entry) SEE LABEL COMMENTS DAILY XX ; Start 12/30/18 at 09:00; Status UNV Multivitamins (Theragram-M) 1 tab DAILY@1200 PO Last administered on 01/05/19 12:44; Start 12/24/18 at 12:00 Potassium Chloride (Micro-K Extencaps) 10 meq BID PO Last administered on 01/05/19 09:04; Start 01/03/19 at 09:00 Senna (Senokot) 1 tab QHS PO Last administered on 01/04/19 21:04; Start 12/23/18 at 21:00 Sodium Chloride 500 ml @ 60 mls/hr Q8H20M IV Last administered on 12/28/18 13:40; Start 12/28/18 at 11:45; Stop 12/28/18 at 20:04; Status DC Sodium Chloride (Saline Lock Flush) 10 ml ASDIRECTED PRN IV SEE LABEL COMMENTS Last administered on 12/29/18 17:17; Start 12/24/18 at 00:30 Sodium Chloride (Saline Lock Flush) 10 ml SLF IV Last administered on 01/05/19 14:21; Start 12/24/18 at 06:00 Tamsulosin HCl (Flomax) 0.4 mg QHS PO Last administered on 01/04/19 21:03; Start 12/23/18 at 21:00 Torsemide (Demadex) 10 mg BID@09,17 PO Last administered on 01/02/19at 08:59; Start 12/26/18 at 17:00; Stop 01/02/19 at 10:51; Status DC Torsemide (Demadex) 20 mg BID@09,17 PO Last administered on 12/26/18at 05:57; Start 12/23/18 at 17:00; Stop 12/26/18 at 12:48; Status DC Torsemide (Demadex) 20 mg BID@,17 PO Last administered on 01/03/19at 08:16; Start 01/02/19 at 17:00; Stop 01/03/19 at 10:30; Status DC Torsemide (Demadex) 30 mg BID@,17 PO Last administered on 01/05/19at 09:04; Start 01/03/19 at 17:00 Vitamin D (Vitamin D) 2,000 units DAILY PO Last administered on 01/05/19at 09:04; Start 12/24/18 at 09:00 ROSSANA SAENZ MD Jan 05, 2019 14:47
[2019-01-05] MEDS ORDERED: FLOM0.4C39 PO (18:17)
[2019-01-05] MEDS ORDERED: INSUDET SC (18:17)
[2019-01-05] MEDS ORDERED: ELIQ5TAB PO (18:17)
[2019-01-05] MEDS ORDERED: CLONI1TA PO (18:17)
[2019-01-05] MEDS ORDERED: KLOR10TA76 PO (18:17)
[2019-01-05] MEDS ORDERED: CARV12.5 PO (18:17)
[2019-01-05] MEDS ORDERED: HYDR50TA PO (18:17)
[2019-01-05] MEDS ORDERED: RISATAB3 PO (18:17)
[2019-01-05] MEDS ORDERED: LINE1TAB6 PO (18:17)
[2019-01-05] MEDS ORDERED: CLOP75TA2 PO (18:17)
[2019-01-05] MEDS ORDERED: GABA-843 PO (18:17)
[2019-01-05] MEDS ORDERED: VITAD1000T PO (18:17)
[2019-01-05] MEDS ORDERED: COZA50TA PO (18:17)
[2019-01-05] MEDS ORDERED: ALLO10TA PO (18:17)
[2019-01-05] MEDS ORDERED: REME15TA PO (18:17)
[2019-01-05] MEDS ORDERED: TORS10TA3 PO (18:17)
[2019-01-05] MEDS: SENNA 8.6 MG TAB (SENOKOT) PO SCH (21:00)
[2019-01-05 22:00] VITALS: BP 172/89
[2019-01-05] MEDS: GABAPENTIN 300 MG CAP PO SCH (22:03)
[2019-01-05] MEDS: MIRTAZAPINE 15 MG TAB PO SCH (22:03)
[2019-01-05] MEDS: TAMSULOSIN 0.4 MG CAP PO SCH (22:03)
[2019-01-05] MEDS ORDERED: ACETAMINOPHEN TAB 650MG DOSE (2X325MG) PO PRN (23:00)
[2019-01-06 06:00] VITALS: BP 115/70
[2019-01-06] MEDS: SODIUM CHLORIDE 0.9% INJ 10 ML SYR IV SCH (06:49)
[2019-01-06] MEDS: cloNIDine 0.1 MG TAB PO SCH (07:00)
[2019-01-06] MEDS: IPRATROPIUM 0.5MG/ALBUTEROL 2.5MG INH SOL UD 3ML (DUONEB)(J7620) NEB SCH ×2 (07:44)
[2019-01-06] MEDS: LEVEMIR (INSULIN DETEMIR) 1 UNITS/0.01ML SC SCH (08:59)
[2019-01-06] MEDS: HumaLOG INSULIN (NovoLOG) PER UNIT SC SCH ×2 (09:00→12:00)
[2019-01-06] MEDS: LACTOBACILLUS ACIDOPHILUS CAP (BACID) PO SCH (09:00)
[2019-01-06] MEDS: **hydrALAZINE** 50 MG TAB PO SCH (09:00)
[2019-01-06] MEDS: POTASSIUM CHLORIDE 10 MEQ SR TABLET PO SCH (09:00)
[2019-01-06] MEDS: ALLOPURINOL 100 MG TAB PO SCH (09:00)
[2019-01-06] MEDS: DOCUSATE SODIUM 100 MG CAP PO SCH (09:00)
[2019-01-06] MEDS: CLOPIDOGREL 75 MG TAB PO SCH (09:00)
[2019-01-06] MEDS: APIXABAN 5 MG TAB (ELIQUIS) PO SCH (09:00)
[2019-01-06 09:01] VITALS: BP 115/70
[2019-01-06] MEDS: CARVedilol 12.5 MG TAB PO SCH (09:01)
[2019-01-06] MEDS: VITAMIN D 1,000 INTERNATIONAL UNITS TABLET PO SCH (09:01)
[2019-01-06] MEDS: TORSEMIDE 10 MG TABLET PO SCH (09:01)
[2019-01-06] MEDS: LINEZOLID 600MG TABLET (ZYVOX) PO SCH (09:01)
[2019-01-06] MEDS: LOSARTAN 50 MG TAB PO SCH (09:01)
[2019-01-06] MEDS: EUCERIN 120GM CREAM TOP SCH (09:03)
[2019-01-06] MEDS: MULTIVITAMINS/MINERALS THERAP 1 TAB PO SCH (12:14)
--- NOTE | 2019-01-06 19:16 | IPN ---
DATE: 01/06/2019 Mr. Bradley is anxious to go home today. He had his wound VAC changed by Rupa and I was present at the dressing change. PHYSICAL EXAMINATION: HEART: Normal S1, S2. Distant. LUNGS: Diminished breath sounds. ABDOMEN: Morbidly obese. EXTREMITIES: +2 pitting edema with severe psoriatic plaques, peeling skin. Site of amputation of first toe has granulation tissue with no purulence. ESR rate was 58. CRP 3.36. Renal ultrasound done on 01/03/2019 showed 4.3 x 4.9 x 4 cm simple-appearing right lower renal cyst. IMPRESSION: 1. Osteomyelitis of the right big toe status post ray amputation of the first toe and second metatarsal head with culture positive for methicillin-resistant Staphylococcus aureus (MRSA) and Enterococcus (E) faecalis. Patient currently on by mouth linezolid doing well. He has a wound VAC that will be changed three times a week at home. 2. Fluid overload. His dose of torsemide is 30 mg twice a day. Patient also usually takes metolazone at home, which has been held due to acute kidney injury. His creatinine is close to his baseline currently at 2.13, normally at 2. This will be monitored by his primary care provider as an outpatient. PLAN: Continue by mouth linezolid for two weeks, 600 mg by mouth twice a day. He will have blood work done weekly to monitor for pancytopenia with linezolid. Complete blood count (CBC), basic, CRP, and erythrocyte sedimentation rate. Patient could followup with Dr. Yeh, his vascular surgeon, if there is concern of persistent infection. He can see me in the office in a couple of weeks. SHIRLEY
--- NOTE | 2019-01-07 14:35 | PMRDS ---
DATE OF ADMISSION: 12/23/2018 DATE OF DISCHARGE: 01/06/2019 CHIEF COMPLAINT/DISCHARGE DIAGNOSIS: Right first digit amputation in setting of peripheral neuropathy. HISTORY OF PRESENT ILLNESS: A 73-year-old man with a past local history of atrial fibrillation on Coumadin, coronary artery disease (CAD) status post myocardial infarction (NC) and stenting, congestive heart failure (CHF), chronic kidney disease (CKD) stage III, diabetes type 2, peripheral neuropathy, hypertension, gout, anemia, who presented to [facility] on 11/22/2018 with right leg pain and found to have gangrene in his right great toe that he said began in September 2018. He was evaluated by vascular surgery and underwent a left femoral puncture under ultrasound guidance, aortogram with right leg runoff on 11/22/2018. Following this procedure, it was decided he needed a right femoral endarterectomy, right femoral-popliteal bypass with a right first toe amputation, which was performed 12/02/2018 without initial complication. He was followed during his stay by renal for worsening creatinine level, but dialysis was not deemed necessary. He developed purulence and drainage from his amputation site. The sutures were removed and wound cultures, followed by washout and debridement on 12/13/2018, with removal of a portion of the first and second metatarsal bones. He was started on intravenous (IV) vancomycin and Zosyn, but due to worsening renal function, eventually was switched to linezolid per infectious disease (ID) recommendations for a methicillin-resistant Staphylococcus aureus (MRSA) wound culture and managed with a wound VAC. His bone culture was positive for osteomyelitis and positive for MRSA and Enterococcus, so he was switched to daptomycin for a total of six weeks, through 01/24/2019. He also was noted to have intermittent bradycardia while on Coreg, without significant symptoms and this torsemide was ultimately decreased due to worsening creatinine function and he was evaluated by therapy, found to have deficits in gait and activities of daily living (ADLs) below his prior level of function and deemed medically appropriate for discharge to acute rehabilitation unit (ARU) on 12/23/2018. PAST MEDICAL HISTORY: As per history of present illness (HPI). HOSPITAL COURSE: The patient was admitted on a comprehensive physical therapy (PT)/occupational therapy (OT) program. He received 24-hour nursing supervision and weekly team meetings were held to discuss his progress. The patient's wound VAC was change three times a week, his CRP and erythrocyte sedimentation rate was monitored. He was evaluated by Dr. Baca, infectious disease doctor, and eventually switched to by mouth linezolid. Patient was found to have worsening creatinine function during the first few days of his hospital course. His torsemide dosing was decreased; however, after a couple of days, he developed worsening bilateral lower extremity swelling. Renal was consulted and his torsemide dosing was increased in addition to being placed on a fluid restriction. Patient, upon arrival, reported feeling depressed and having difficulty sleeping and was started on Remeron with improvement in these symptoms. He received twice a day dressing changes to his bilateral calves and wound care was provided for his sacrum. His blood pressures were difficult to manage; however, they were slightly improved with the addition of clonidine and a higher dose of hydralazine. Patient was deemed medically and functionally stable to return home, making significant gains in physical therapy and occupational therapy, with followup with his renal doctor and vascular surgeon. DISCHARGE MEDICATIONS: As per discharge records. FUNCTIONAL HISTORY: Upon discharge, patient was modified independent 50 feet, partial weightbearing to the right, full weightbearing to the left for ambulation and modified independent for all functional transfers, upper body dressing, minimal assist for lower body dressing modified for toileting. Thank you for this referral.
== END 2019-01-06 14:10 | disposition home health service (06) | DRG 560 ==
LOC: M PM&R 12-23 13:33
PROVIDERS: ADMIT Physical Medicine & Rehabilitation; ATTEND Physical Medicine & Rehabilitation
DX: Z47.81 Encounter for orthopedic aftercare following surgical amputation (principal); I13.0 Hypertensive heart and chronic kidney disease with heart failure and stage 1 through stage 4 chronic kidney disease, or unspecified chronic kidney disease; M86.671 Other chronic osteomyelitis, right ankle and foot; N17.9 Acute kidney failure, unspecified; Z68.41 Body mass index [BMI] 40.0-44.9, adult; E11.52 Type 2 diabetes mellitus with diabetic peripheral angiopathy with gangrene; E11.42 Type 2 diabetes mellitus with diabetic polyneuropathy; I48.91 Unspecified atrial fibrillation; I25.10 Atherosclerotic heart disease of native coronary artery without angina pectoris; I25.2 Old myocardial infarction; I50.9 Heart failure, unspecified; N18.3 Chronic kidney disease, stage 3 (moderate); E11.22 Type 2 diabetes mellitus with diabetic chronic kidney disease; M10.9 Gout, unspecified; D63.1 Anemia in chronic kidney disease; G47.00 Insomnia, unspecified; E66.01 Morbid (severe) obesity due to excess calories; I87.2 Venous insufficiency (chronic) (peripheral); E11.621 Type 2 diabetes mellitus with foot ulcer; F32.9 Major depressive disorder, single episode, unspecified; I16.0 Hypertensive urgency; L97.519 Non-pressure chronic ulcer of other part of right foot with unspecified severity; L40.9 Psoriasis, unspecified; Z98.49 Cataract extraction status, unspecified eye; E87.70 Fluid overload, unspecified; Z90.49 Acquired absence of other specified parts of digestive tract; Z95.5 Presence of coronary angioplasty implant and graft; Z79.01 Long term (current) use of anticoagulants; Z79.4 Long term (current) use of insulin; Z79.899 Other long term (current) drug therapy; Z88.8 Allergy status to other drugs, medicaments and biological substances; Z98.62 Peripheral vascular angioplasty status; B95.62 Methicillin resistant Staphylococcus aureus infection as the cause of diseases classified elsewhere; Z87.891 Personal history of nicotine dependence